=== PATIENT | male | born 1945 | race Caucasian/White ===

== ENCOUNTER 2016-07-27 20:56 | Inpatient (IN) | payer OTHER ==
[~2016-07-27] VITALS: Ht 188 cm; Wt 79.8 kg
[~2016-07-27 20:56] MED LIST: ASPI-482 PO; BENA10TA2 PO; COLC0.6T42 PO; GLUC1CAP41 PO; HYDR12.58 PO; OMEP40CA2 PEG; [UNRECOGNIZED DRUG - CODE] PEG
[2016-07-27 21:58] LABS: BASO % 0 % (0-3); EOS % 0 % (0-3); HEMOGLOBIN 13.6 g/dL (13.0-17.5); LYMPH # 0.5 x10^3/uL (1.0-4.8); LYMPH % 3 % (24-48); MEAN CORPUSCULAR HEMOGLOBIN 30 pg (25-35); MEAN CORPUSCULAR HGB CONC 34 g/dL (31-37); MEAN CORPUSCULAR VOLUME 88 fL (79-100); MONO % 4 % (0-9); NEUT % 92 % (31-73); PLATELET COUNT 284 x10^3/uL (140-400); RED BLOOD COUNT 4.52 x10^6/uL (4.30-5.70); WHITE BLOOD COUNT 16.8 x10^3/uL (4.0-11.0)
[2016-07-27 22:07] LABS: CREATININE 0.9 mg/dL (0.7-1.3); GFR 83.4; POTASSIUM 3.1 mmol/L (3.5-5.1)
[2016-07-27 22:13] LABS: ALBUMIN 2.9 g/dL (3.4-5.0); ALBUMIN/GLOBULIN RATIO 0.7 (1.0-1.7); TOTAL BILIRUBIN 1.1 mg/dL (0.2-1.0); TOTAL PROTEIN 7.1 g/dL (6.4-8.2)
[2016-07-27] MEDS ORDERED: IV DEXTROSE 5 %-0.45 % NACL 1,000 ML IV ONE (22:15)
[2016-07-27 22:43] LABS: PLT ESTIMATE ADEQUATE (ADEQUATE)
[2016-07-27 22:50] VITALS: BP 179/94
[2016-07-27 23:45] VITALS: BP 155/92
--- NOTE | 2016-07-28 | ED.ADGEN ---
Past Medical History Past Medical History: Cancer, Other Additional Past Medical Histor: esophageal cancer Past Surgical History: Tonsillectomy, Other Additional Past Surgical Histo: PEG, PORT Alcohol Use: Rarely Drug Use: None Adult General Chief Complaint Chief Complaint: DIFFICULTY SWALLOWING HPI HPI Patient is a 71 year old male with history of esophageal cancer presents with progressive difficulty swallowing for the past 2 days. Patient had an EGD performed today by his GI specialist and it was noted that he had near total occlusion of his esophagus. The patient was instructed to drink liquids until suitable arrangement could be made the patient to obtain a PEG tube. However, the patient reported coughing fluids and unable to swallow this evening prompting his visit to the urgency department. Patient also noted to be hypoxic with wet nonproductive cough. Patient reports generalized weakness fatigue and chills. Review of Systems Review of Systems ROS as per [facility] Allergies Allergies Allergies Coded Allergies Type Severity Reaction Last Updated Verified No Known Drug Allergies 07/12/16 No Physical Exam Physical Exam Constitutional: Well developed, generally weak and fatigued appearing. HENT: Normocephalic, atraumatic, bilateral external ears normal, oropharynx moist, no oral exudates, nose normal. Eyes: PERRLA, EOMI, conjunctiva normal, no discharge. Neck: Normal range of motion, no tenderness, supple, no stridor. Cardiovascular:Heart rate regular rhythm, no murmur. Lungs & Thorax:Coarse rales in left lung base Abdomen: Bowel sounds normal, soft, no tenderness, no masses, no pulsatile masses. Skin: Warm, dry, no erythema, no rash. [] Back: No tenderness, no CVA tenderness. [] Extremities: No tenderness, no cyanosis, no clubbing, ROM intact, no edema. [] Neurologic: Alert and oriented X 3, normal motor function, normal sensory function, no focal deficits noted. [] Psychologic: Affect normal, judgement normal, mood normal. [] Current Patient Data Vital Signs Vital Signs Date Time Temp Pulse Resp B/P (MAP) Pulse Ox O2 Delivery O2 Flow Rate FiO2 07/27/16 21:41 98 176/90 (118) 94 Nasal Cannula 2.0 07/27/16 21:37 99.9 20 99.9 Lab Values Laboratory Tests Test 07/27/16 21:24 White Blood Count 16.8 x10^3/uL (4.0-11.0) H Red Blood Count 4.52 x10^6/uL (4.30-5.70) Hemoglobin 13.6 g/dL (13.0-17.5) Hematocrit 40.0 % (39.0-53.0) Mean Corpuscular Volume 88 fL (79-100) Mean Corpuscular Hemoglobin 30 pg (25-35) Mean Corpuscular Hemoglobin Concent 34 g/dL (31-37) Red Cell Distribution Width 14.0 % (11.5-14.5) Platelet Count 284 x10^3/uL (140-400) Neutrophils (%) (Auto) 92 % (31-73) H Lymphocytes (%) (Auto) 3 % (24-48) L Monocytes (%) (Auto) 4 % (0-9) Eosinophils (%) (Auto) 0 % (0-3) Basophils (%) (Auto) 0 % (0-3) Neutrophils # (Auto) 15.5 x10^3uL (1.8-7.7) H Lymphocytes # (Auto) 0.5 x10^3/uL (1.0-4.8) L Monocytes # (Auto) 0.7 x10^3/uL (0.0-1.1) Eosinophils # (Auto) 0.1 x10^3/uL (0.0-0.7) Basophils # (Auto) 0.0 x10^3/uL (0.0-0.2) Segmented Neutrophils % 91 % (35-66) H Lymphocytes % 5 % (24-48) L Monocytes % 4 % (0-10) Platelet Estimate Adequate (ADEQUATE) Sodium Level 140 mmol/L (136-145) Potassium Level 3.1 mmol/L (3.5-5.1) L Chloride Level 101 mmol/L (98-107) Carbon Dioxide Level 29 mmol/L (21-32) Anion Gap 10 (6-14) Blood Urea Nitrogen 18 mg/dL (8-26) Creatinine 0.9 mg/dL (0.7-1.3) Estimated GFR (Cockcroft-Gault) 83.4 BUN/Creatinine Ratio 20 (6-20) Glucose Level 113 mg/dL (70-99) H Calcium Level 9.0 mg/dL (8.5-10.1) Total Bilirubin 1.1 mg/dL (0.2-1.0) H Aspartate Amino Transferase (AST) 21 U/L (15-37) Alanine Aminotransferase (ALT) 22 U/L (16-63) Alkaline Phosphatase 81 U/L (46-116) Total Protein 7.1 g/dL (6.4-8.2) Albumin 2.9 g/dL (3.4-5.0) L Albumin/Globulin Ratio 0.7 (1.0-1.7) L Laboratory Tests 07/27/16 21:24 Laboratory Tests 07/27/16 21:24 EKG EKG [] Radiology/Procedures Radiology/Procedures [Chest x-ray: Left sided pulmonary infiltrate.] Impressions: Patient with pneumonia with likely secondary to aspiration. Antibiotics given in the emergency department. Patient will be kept NPO pending GI consult Course & Med Decision Making Course & Med Decision Making Pertinent Labs and Imaging studies reviewed. (See chart for details) [] Dragon Disclaimer Dragon Disclaimer This electronic medical record was generated, in whole or in part, using a voice recognition dictation system. TEENA CASTILLO DO July 28, 2016 00:00
--- NOTE | 2016-07-28 00:10 | ACF ---
Admission Forms Criteria PNEUMONIA, COMMUNITY ACQUIRED Clinical Indications for Admission to Inpatient Care ( Place 'X' for any and all applicable criteria): Admission is indicated for ANY ONE of the following (1)(2)(3): [ ]I. Hypoxemia indicated by ANY ONE of the following: [ ]a) Oxygen saturation less than 90% while breathing room air [ ]b) PO2 less than 60 mm Hg (8.0 kPa) while breathing room air [ ]c) Chronic lung disease with significant deterioration from baseline oxygenation [ ]II. Appropriate diagnostic testing and treatment unavailable in outpatient or recovery facility (eg,testing or infection control measures unavailable(10) [X]III. Moderate-risk or high-risk category patients (Pneumonia Severity Index (PSI) class IV or V, or CURB-65 score of 3 or greater). [ ]IV. Outpatient treatment failure as indicated by ANY ONE of the following(9) : [ ]a) Failure to respond to antibiotic (eg, resistant organism) [ ]b) Clinically significant adverse effects from medication (eg, vomiting) [ ]c) Complications of pneumonia (eg, empyema, bacteremia) [ ]d) Significant worsening of comorbid cond necessitating inpatient care (eg, chronic heart failure) [ ]V. Intermediate-risk category patients (eg, PSI class III or CURB-65 score 2) who do not improve with initial therapy and observation. [ ]. Immunocompromised patients (eg, AIDS, chronic steroid use) at moderate or high risk based on clinical evaluation. [ ]VII. Complicated pleural effusions (eg, exudative, loculated) [ ]VIII.Hemodynamic instability [ ] IX. Altered mental status that is severe or persistent. [ ]X. Dehydration that is severe or persistent. [ ]XI. Bacteremia [ ]XII. Respiratory finding (eg. tachypnea) that do not respond to outpatient or observation care treatment Extended stay beyond goal length of stay may be needed for (20) [ ]a) Unclear diagnosis [ ]b) Pleural disease [ ]c) Severe pneumonia or treatment failure (25 [ ]d) Respiratory failure (anticipate invasive or noninvasive ventilatory support) [ ]e) Abnormal serum electrolytes (serum Na concentration less than 135 mEq/L (mmol/L) (32)(33) [ ]f) Clinically significant comorbid illness (eg, heart failure, atrial fibrillation with rapid heart rate, alcohol withdrawal, renal insufficiency)(34)(35) [ ]g) Comorbid acute exacerbation of COPD(36) [ ]h) Concomitant diagnosis of malignancy that may be associated with malnutrition, immunologic impairment, or bronchial obstruction. [ ]i) Concomitant altered mental status [ ]j) Culture-identified Gram-negative or antibiotic-resistant organism (eg, Pseudomonas, methicillin-resistant Staphylococcus aureus)(30) [ ]k) Healthcare-associated pneumonia The original [employer] content created by [employer] has been revised. The portions of the content which have been revised are identified through the use of italic text or in bold, and [email or web address] has neither reviewed nor approved the modified material. All other unmodified content is copyright [email or web address]. Please see references footnoted in the original [facility] [email or web address] edition 2016 Admission Criteria Met?: Yes MEGA RAGSDALE July 28, 2016 00:10
[2016-07-28 03:00] VITALS: BP 144/84
--- NOTE | 2016-07-28 07:19 | RAD ---
Exam performed: One view chest. History: Shortness of air today. Date of service: 07/27/16. Comparison made to a CT chest from Single AP upright portable view chest. Findings: Heart size is within upper limits normal. Ectatic tortuous aorta. Parenchymal airspace opacities in the left lower lobe with questionable blunting of the left costophrenic angle. Right lung is clear. The recent CT chest demonstrated airspace opacities in the left lingula. Impression: Stable mild cardiomegaly. Airspace opacities in the left lung base likely infiltrates.
--- NOTE | 2016-07-28 07:50 | EKG ---
[facility] [address] [place] [address] Test Date: 2016-07-27 Test Time: 21:27:16 Pat Name: NORTH DESHPANDE Department: Room: 524 1 Gender: M Parts Identifier: : [id number] Requested By: TRESA DIETRICH Order Number: [id number] Reading MD: Brad Orr Measurements Intervals [place] Rate: 110 P: -29 [place]: 108 QRS: -22 QRSD: 84 T: 41 QT: 318 QTc: 436 Interpretive Statements SINUS TACHYCARDIA NON-SPECIFIC ST/T CHANGES Electronically Signed On 08-02-2016 9:13:22 CDT by Brad Orr
[2016-07-28 07:51] LABS: BASO # 0.1 x10^3/uL (0.0-0.2); BASO % 0 % (0-3); EOS % 0 % (0-3); HEMOGLOBIN 12.6 g/dL (13.0-17.5); LYMPH # 0.9 x10^3/uL (1.0-4.8); LYMPH % 4 % (24-48); MEAN CORPUSCULAR HEMOGLOBIN 30 pg (25-35); MEAN CORPUSCULAR HGB CONC 34 g/dL (31-37); MEAN CORPUSCULAR VOLUME 89 fL (79-100); MONO % 6 % (0-9); NEUT % 90 % (31-73); PLATELET COUNT 252 x10^3/uL (140-400); RED BLOOD COUNT 4.17 x10^6/uL (4.30-5.70); RED CELL DISTRIBUTION WIDTH 14.6 % (11.5-14.5); WHITE BLOOD COUNT 21.9 x10^3/uL (4.0-11.0)
[2016-07-28 07:55] VITALS: BP 134/82
[2016-07-28 08:03] LABS: CALCIUM 8.4 mg/dL (8.5-10.1); CREATININE 0.9 mg/dL (0.7-1.3); GFR 83.4; POTASSIUM 3.1 mmol/L (3.5-5.1)
[2016-07-28] MEDS: IPRATRPIUM/ALBUTEROL 0.5/2.5MG 3 ML NEBU. NEB SCH ×4 (08:05→19:49)
--- NOTE | 2016-07-28 09:29 | PDOC1 ---
History and Physical Past Medical History Cardiovascular: HTN GI: Other Heme/Onc: Cancer Past Surgical History Past Surgical History: Tonsillectomy Family History Family History: No Significant Social History Smoke: No ALCOHOL: none Drugs: None Current Problem List Problem List Problems Medical Problems: (1) Intractable vomiting with nausea Status: Acute Current Medications Current Medications Current Medications Medications (Trade) Dose Ordered Sig/Manjit Start Time Stop Time Status Last Admin Dose Admin Albuterol/ Ipratropium (Duoneb) 3 ml RTQID 07/28/16 08:00 07/29/16 07:59 07/28/16 08:05 3 ML Dextrose/Sodium Chloride 1,000 ml @ 125 mls/hr 1X ONCE 07/27/16 22:15 07/28/16 06:14 DC 07/27/16 22:30 125 MLS/HR Levofloxacin/ Dextrose 150 ml @ 100 mls/hr 1X ONCE 07/27/16 23:00 07/28/16 00:29 DC 07/27/16 23:13 100 MLS/HR Allergies Allergies Allergies Coded Allergies Type Severity Reaction Last Updated Verified No Known Drug Allergies 07/12/16 No ROS Review of System CONSTITUTIONAL: No fever or chills EYES: No recent changes SKIN: No rash or itching CARDIOVASCULAR: No chest pain, syncope, palpitations, or edema RESPIRATORY: No SOB or cough GASTROINTESTINAL: DYSPHAGIA NEUROLOGICAL: No headaches or weakness ENDOCRINE: No cold or heat intolerance GENITOURINARY: No urgency or frequency of urination MUSCULOSKELETAL: No back pain or joint pain LYMPHATICS: No enlarged lymph nodes PSYCHIATRIC: No anxiety or depression Physical Exam Physical Exam GEN.: No apparent distress. Alert and oriented. HEENT: Head is normocephalic, atraumatic NECK: Supple. no jvd LUNGS: Clear to auscultation. normal flow HEART: RRR, S1, S2 present. Peripheral pulses intact ABDOMEN: Soft, nontender. Positive bowel sounds. EXTREMITIES: Without any cyanosis. NEUROLOGIC: Normal speech, normal tone PSYCHIATRIC: Normal affect, normal mood. SKIN: No ulcerations Vitals Vitals Vital Signs Date Time Temp Pulse Resp B/P (MAP) Pulse Ox O2 Delivery O2 Flow Rate FiO2 07/28/16 08:00 Room Air 2.0 07/28/16 07:56 92 07/28/16 07:55 98.0 79 16 134/82 (99) 98.0 Labs Labs Laboratory Tests Test 07/27/16 21:24 07/28/16 07:30 White Blood Count 16.8 x10^3/uL (4.0-11.0) 21.9 x10^3/uL (4.0-11.0) Red Blood Count 4.52 x10^6/uL (4.30-5.70) 4.17 x10^6/uL (4.30-5.70) Hemoglobin 13.6 g/dL (13.0-17.5) 12.6 g/dL (13.0-17.5) Hematocrit 40.0 % (39.0-53.0) 37.0 % (39.0-53.0) Mean Corpuscular Volume 88 fL (79-100) 89 fL (79-100) Mean Corpuscular Hemoglobin 30 pg (25-35) 30 pg (25-35) Mean Corpuscular Hemoglobin Concent 34 g/dL (31-37) 34 g/dL (31-37) Red Cell Distribution Width 14.0 % (11.5-14.5) 14.6 % (11.5-14.5) Platelet Count 284 x10^3/uL (140-400) 252 x10^3/uL (140-400) Neutrophils (%) (Auto) 92 % (31-73) 90 % (31-73) Lymphocytes (%) (Auto) 3 % (24-48) 4 % (24-48) Monocytes (%) (Auto) 4 % (0-9) 6 % (0-9) Eosinophils (%) (Auto) 0 % (0-3) 0 % (0-3) Basophils (%) (Auto) 0 % (0-3) 0 % (0-3) Neutrophils # (Auto) 15.5 x10^3uL (1.8-7.7) 19.7 x10^3uL (1.8-7.7) Lymphocytes # (Auto) 0.5 x10^3/uL (1.0-4.8) 0.9 x10^3/uL (1.0-4.8) Monocytes # (Auto) 0.7 x10^3/uL (0.0-1.1) 1.2 x10^3/uL (0.0-1.1) Eosinophils # (Auto) 0.1 x10^3/uL (0.0-0.7) 0.0 x10^3/uL (0.0-0.7) Basophils # (Auto) 0.0 x10^3/uL (0.0-0.2) 0.1 x10^3/uL (0.0-0.2) Segmented Neutrophils % 91 % (35-66) Lymphocytes % 5 % (24-48) Monocytes % 4 % (0-10) Platelet Estimate Adequate (ADEQUATE) Sodium Level 140 mmol/L (136-145) 139 mmol/L (136-145) Potassium Level 3.1 mmol/L (3.5-5.1) 3.1 mmol/L (3.5-5.1) Chloride Level 101 mmol/L (98-107) 102 mmol/L (98-107) Carbon Dioxide Level 29 mmol/L (21-32) 30 mmol/L (21-32) Anion Gap 10 (6-14) 7 (6-14) Blood Urea Nitrogen 18 mg/dL (8-26) 14 mg/dL (8-26) Creatinine 0.9 mg/dL (0.7-1.3) 0.9 mg/dL (0.7-1.3) Estimated GFR (Cockcroft-Gault) 83.4 83.4 BUN/Creatinine Ratio 20 (6-20) Glucose Level 113 mg/dL (70-99) 142 mg/dL (70-99) Calcium Level 9.0 mg/dL (8.5-10.1) 8.4 mg/dL (8.5-10.1) Total Bilirubin 1.1 mg/dL (0.2-1.0) Aspartate Amino Transf (AST/SGOT) 21 U/L (15-37) Alanine Aminotransferase (ALT/SGPT) 22 U/L (16-63) Alkaline Phosphatase 81 U/L (46-116) Total Protein 7.1 g/dL (6.4-8.2) Albumin 2.9 g/dL (3.4-5.0) Albumin/Globulin Ratio 0.7 (1.0-1.7) Laboratory Tests Test 07/27/16 21:24 07/28/16 07:30 White Blood Count 16.8 x10^3/uL (4.0-11.0) 21.9 x10^3/uL (4.0-11.0) Red Blood Count 4.52 x10^6/uL (4.30-5.70) 4.17 x10^6/uL (4.30-5.70) Hemoglobin 13.6 g/dL (13.0-17.5) 12.6 g/dL (13.0-17.5) Hematocrit 40.0 % (39.0-53.0) 37.0 % (39.0-53.0) Mean Corpuscular Volume 88 fL (79-100) 89 fL (79-100) Mean Corpuscular Hemoglobin 30 pg (25-35) 30 pg (25-35) Mean Corpuscular Hemoglobin Concent 34 g/dL (31-37) 34 g/dL (31-37) Red Cell Distribution Width 14.0 % (11.5-14.5) 14.6 % (11.5-14.5) Platelet Count 284 x10^3/uL (140-400) 252 x10^3/uL (140-400) Neutrophils (%) (Auto) 92 % (31-73) 90 % (31-73) Lymphocytes (%) (Auto) 3 % (24-48) 4 % (24-48) Monocytes (%) (Auto) 4 % (0-9) 6 % (0-9) Eosinophils (%) (Auto) 0 % (0-3) 0 % (0-3) Basophils (%) (Auto) 0 % (0-3) 0 % (0-3) Neutrophils # (Auto) 15.5 x10^3uL (1.8-7.7) 19.7 x10^3uL (1.8-7.7) Lymphocytes # (Auto) 0.5 x10^3/uL (1.0-4.8) 0.9 x10^3/uL (1.0-4.8) Monocytes # (Auto) 0.7 x10^3/uL (0.0-1.1) 1.2 x10^3/uL (0.0-1.1) Eosinophils # (Auto) 0.1 x10^3/uL (0.0-0.7) 0.0 x10^3/uL (0.0-0.7) Basophils # (Auto) 0.0 x10^3/uL (0.0-0.2) 0.1 x10^3/uL (0.0-0.2) Segmented Neutrophils % 91 % (35-66) Lymphocytes % 5 % (24-48) Monocytes % 4 % (0-10) Platelet Estimate Adequate (ADEQUATE) Sodium Level 140 mmol/L (136-145) 139 mmol/L (136-145) Potassium Level 3.1 mmol/L (3.5-5.1) 3.1 mmol/L (3.5-5.1) Chloride Level 101 mmol/L (98-107) 102 mmol/L (98-107) Carbon Dioxide Level 29 mmol/L (21-32) 30 mmol/L (21-32) Anion Gap 10 (6-14) 7 (6-14) Blood Urea Nitrogen 18 mg/dL (8-26) 14 mg/dL (8-26) Creatinine 0.9 mg/dL (0.7-1.3) 0.9 mg/dL (0.7-1.3) Estimated GFR (Cockcroft-Gault) 83.4 83.4 BUN/Creatinine Ratio 20 (6-20) Glucose Level 113 mg/dL (70-99) 142 mg/dL (70-99) Calcium Level 9.0 mg/dL (8.5-10.1) 8.4 mg/dL (8.5-10.1) Total Bilirubin 1.1 mg/dL (0.2-1.0) Aspartate Amino Transf (AST/SGOT) 21 U/L (15-37) Alanine Aminotransferase (ALT/SGPT) 22 U/L (16-63) Alkaline Phosphatase 81 U/L (46-116) Total Protein 7.1 g/dL (6.4-8.2) Albumin 2.9 g/dL (3.4-5.0) Albumin/Globulin Ratio 0.7 (1.0-1.7) VTE Prophylaxis Ordered VTE Prophylaxis Devices: Yes VTE Pharmacological Prophylaxi: Yes NEFTALY SCHREIBER MD July 28, 2016 09:29
[2016-07-28] MEDS ORDERED: HYDROcodone/APAP 5/325MG 1 TAB TABLET PO PRN (09:30)
[2016-07-28] MEDS ORDERED: ACETAMINOPHEN 325 MG TABLET. PO PRN (09:30)
[2016-07-28] MEDS ORDERED: ALBUTEROL SULFATE 2.5 MG/3 ML NEBU. NEB PRN (09:30)
[2016-07-28] MEDS ORDERED: ONDANSETRON PF 4 MG/2 ML VIAL. IV PRN (09:30)
[2016-07-28] MEDS ORDERED: hydrALAZINE 20 MG/ML VIAL. IVP PRN (09:30)
--- NOTE | 2016-07-28 09:49 | PDOC ---
A/P: Esophageal cancer, dysphagia -- Pt prefers to see Dr. Pritchard. APPLE VALENCIA July 28, 2016 09:49
[2016-07-28] MEDS: PIPERACILLIN/TAZOBACTAM 3.375 GM in IV NORMAL SALINE 50ML 50 ML IV SCH ×3 (10:30→23:34)
[2016-07-28] MEDS: IV NORMAL SALINE 1000ML BAG 1,000 ML IV SCH ×2 (10:30→22:36)
[2016-07-28 11:04] VITALS: BP 131/79
[2016-07-28] MEDS: AMINO AC 3%/ELECTROLYTE/GLYCER 1,000 ML IV SCH (12:52)
[2016-07-28] MEDS ORDERED: CONTRAST GIVEN MC PRN (13:45)
[2016-07-28] MEDS ORDERED: IOHEXOL 300 MG/ML 75 ML VIAL IV ONE (13:45)
--- NOTE | 2016-07-28 14:39 | RAD ---
Exam performed: CT abdomen and pelvis with contrast. History: Recurrent esophageal cancer. Date of service: 07/28/16. Comparison: None available Technique: Contiguous helical acquisitions are obtained through the abdomen and pelvis during intravenous administration of 75 cc of Omnipaque 300. Sagittal and coronal reformatted images are obtained and reviewed. Findings: Patchy airspace opacities in the lingula and left lung base. Tiny left pleural effusion. Linear right basilar atelectasis. Calcified nodules in both lung bases. Heart size is normal. Diffuse thickening of the distal esophagus and gastroesophageal junction. No adjacent lymphadenopathy. Small cystic structure in the right cardiophrenic angle probably a pericardial cyst. The liver is normal in size and attenuation. Low attenuating subcentimeter abnormalities are seen throughout the liver. Spleen and pancreas are normal. Gallbladder is distended. Both adrenal glands and bilateral kidneys are normal in size with symmetric excretion of contrast via both kidneys. Nonobstructing 10 mm left superior renal pole calculus. There is also a 13 mm cyst in the left superior renal pole. Atheromatous calcification of the aorta with diffuse ectasia. Mild aneurysmal dilatation of the infrarenal abdominal aorta measuring up to 3.5 cm in maximum dimension. Diffuse noncalcified plaquing is seen throughout the aorta. Small bowel loops are nondilated and unremarkable. Scattered stool in the colon. Urinary bladder is partially decompressed. The prostate gland, seminal vesicles and the rectum appear normal. Interrogation of bone windows demonstrates spondylotic changes. Degenerative disc disease at L5-S1. Impression: 1. Diffuse wall thickening of the distal esophagus suspicious for esophageal neoplasm. Evaluation with endoscopy exam may be of additional benefit if not already performed. 2. Multiple small subcentimeter low attenuating nodules scattered throughout the right and left hepatic lobe. These are too small to be characterized and could represent cysts, however metastasis not excluded. Evaluation with abdominal ultrasound may be obtained to ensure cystic nature of these abnormalities. Alternatively MRI abdomen using hepatic protocol may be performed. 3. Atheromatous aortic calcification with mild aneurysm of the infrarenal aorta. 4. Nonobstructing left renal calculus and left renal cysts. 5. Prostatomegaly
--- NOTE | 2016-07-28 15:19 | PDOC ---
Provider Note Provider Note Onc consult dictated- [id number] Recurrent esoph adenoca Liver lesions uncertain etiology Odynophagia, Surg consulted for J tube Plan: - Abd U/S to eval liver lesions, will need bx if concerned for metastatic disease - HER2 testing requested Dr. Johnson will return tomorrow. DAVE MCGREGOR DO July 28, 2016 15:19
[2016-07-28 15:21] VITALS: BP 133/78
--- NOTE | 2016-07-28 16:42 | RAD ---
Indication: Liver lesions on CT. Correlation is made with CT study earlier the same day. The aorta is aneurysmal measuring up to 4.1 cm transverse by 3.2 centers AP in the distal portion. The liver is normal in size. There appear to be multiple hepatic cysts present. No solid liver mass is identified. The gallbladder does contain small stones and sludge. No wall thickening or pericholecystic fluid is identified. The spleen is unremarkable. The pancreas is poorly visualized. The right kidney is unremarkable. The left kidney contains a 1.7 cm cyst. There is no ascites. Impression: Hepatic and left renal cysts. There is also cholelithiasis and gallbladder sludge. No other significant abnormalities seen.
[2016-07-28 19:00] VITALS: BP 148/70
[2016-07-28 23:00] VITALS: BP 138/61
[2016-07-29 03:00] VITALS: BP 161/89
[2016-07-29] MEDS: AMINO AC 3%/ELECTROLYTE/GLYCER 1,000 ML IV SCH ×2 (04:53→20:39)
[2016-07-29] MEDS: PIPERACILLIN/TAZOBACTAM 3.375 GM in IV NORMAL SALINE 50ML 50 ML IV SCH ×3 (05:52→18:40)
[2016-07-29 06:53] LABS: BASO % 0 % (0-3); EOS % 1 % (0-3); HEMATOCRIT 34.7 % (39.0-53.0); HEMOGLOBIN 12.1 g/dL (13.0-17.5); LYMPH # 0.7 x10^3/uL (1.0-4.8); LYMPH % 6 % (24-48); MEAN CORPUSCULAR HEMOGLOBIN 31 pg (25-35); MEAN CORPUSCULAR HGB CONC 35 g/dL (31-37); MEAN CORPUSCULAR VOLUME 88 fL (79-100); MONO % 7 % (0-9); NEUT % 87 % (31-73); PLATELET COUNT 236 x10^3/uL (140-400); RED BLOOD COUNT 3.97 x10^6/uL (4.30-5.70); RED CELL DISTRIBUTION WIDTH 14.4 % (11.5-14.5); WHITE BLOOD COUNT 13.3 x10^3/uL (4.0-11.0)
[2016-07-29 07:00] VITALS: BP 140/75
[2016-07-29 07:03] LABS: CALCIUM 8.5 mg/dL (8.5-10.1); CREATININE 0.9 mg/dL (0.7-1.3); GFR 83.4
[2016-07-29] MEDS: IPRATRPIUM/ALBUTEROL 0.5/2.5MG 3 ML NEBU. NEB SCH ×4 (07:07→19:39)
[2016-07-29 07:08] LABS: POTASSIUM 2.8 mmol/L (3.5-5.1)
[2016-07-29] MEDS: POTASSIUM CHLORIDE 10MEQ 100 ML IV SCH ×8 (08:30→22:39)
--- NOTE | 2016-07-29 09:09 | PDOC ---
PROGRESS NOTES Subjective Subjective c/c - f/u of Recurrent esoph adenoca ROS - has dysphagia Objective Objective Vital Signs Date Time Temp Pulse Resp B/P (MAP) Pulse Ox O2 Delivery O2 Flow Rate FiO2 07/29/16 07:09 93 Room Air 07/29/16 07:00 98.7 93 20 140/75 (96) 98.7 07/28/16 08:00 2.0 Intake and Output 07/29/16 07:00 Intake Total 0 ml Balance 0 ml Intake Oral 0 ml # Voids 5 Physical Exam Abdomen: Soft, No tenderness, No masses General: Alert, Oriented X3 Neuro: Normal speech Psych/Mental Status: Mental status NL Assessment Assessment Problems Medical Problems: (1) Intractable vomiting with nausea Status: Acute A/P: 1. 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 I d/w Dr Pritchard, bx not performed as high risk for perforation. Plan palliative chemo upon discharge. 2. Liver lesions uncertain etiology. Cysts per u/s. However the nodules are very small and will be better characterized by MRI - ordered MRI. 2. Odynophagia, Dr Pritchard to d/w pt regarding stent vs J-tube options. I d/w Dr Pritchard. - Comment Review of Relevant I have reviewed the following items skyler (where applicable) has been applied. Labs Laboratory Tests Test 07/27/16 21:24 07/28/16 07:30 07/29/16 06:32 White Blood Count 16.8 x10^3/uL (4.0-11.0) 21.9 x10^3/uL (4.0-11.0) 13.3 x10^3/uL (4.0-11.0) Red Blood Count 4.52 x10^6/uL (4.30-5.70) 4.17 x10^6/uL (4.30-5.70) 3.97 x10^6/uL (4.30-5.70) Hemoglobin 13.6 g/dL (13.0-17.5) 12.6 g/dL (13.0-17.5) 12.1 g/dL (13.0-17.5) Hematocrit 40.0 % (39.0-53.0) 37.0 % (39.0-53.0) 34.7 % (39.0-53.0) Mean Corpuscular Volume 88 fL (79-100) 89 fL (79-100) 88 fL (79-100) Mean Corpuscular Hemoglobin 30 pg (25-35) 30 pg (25-35) 31 pg (25-35) Mean Corpuscular Hemoglobin Concent 34 g/dL (31-37) 34 g/dL (31-37) 35 g/dL (31-37) Red Cell Distribution Width 14.0 % (11.5-14.5) 14.6 % (11.5-14.5) 14.4 % (11.5-14.5) Platelet Count 284 x10^3/uL (140-400) 252 x10^3/uL (140-400) 236 x10^3/uL (140-400) Neutrophils (%) (Auto) 92 % (31-73) 90 % (31-73) 87 % (31-73) Lymphocytes (%) (Auto) 3 % (24-48) 4 % (24-48) 6 % (24-48) Monocytes (%) (Auto) 4 % (0-9) 6 % (0-9) 7 % (0-9) Eosinophils (%) (Auto) 0 % (0-3) 0 % (0-3) 1 % (0-3) Basophils (%) (Auto) 0 % (0-3) 0 % (0-3) 0 % (0-3) Neutrophils # (Auto) 15.5 x10^3uL (1.8-7.7) 19.7 x10^3uL (1.8-7.7) 11.5 x10^3uL (1.8-7.7) Lymphocytes # (Auto) 0.5 x10^3/uL (1.0-4.8) 0.9 x10^3/uL (1.0-4.8) 0.7 x10^3/uL (1.0-4.8) Monocytes # (Auto) 0.7 x10^3/uL (0.0-1.1) 1.2 x10^3/uL (0.0-1.1) 0.9 x10^3/uL (0.0-1.1) Eosinophils # (Auto) 0.1 x10^3/uL (0.0-0.7) 0.0 x10^3/uL (0.0-0.7) 0.1 x10^3/uL (0.0-0.7) Basophils # (Auto) 0.0 x10^3/uL (0.0-0.2) 0.1 x10^3/uL (0.0-0.2) 0.0 x10^3/uL (0.0-0.2) Segmented Neutrophils % 91 % (35-66) Lymphocytes % 5 % (24-48) Monocytes % 4 % (0-10) Platelet Estimate Adequate (ADEQUATE) Sodium Level 140 mmol/L (136-145) 139 mmol/L (136-145) 140 mmol/L (136-145) Potassium Level 3.1 mmol/L (3.5-5.1) 3.1 mmol/L (3.5-5.1) 2.8 mmol/L (3.5-5.1) Chloride Level 101 mmol/L (98-107) 102 mmol/L (98-107) 103 mmol/L (98-107) Carbon Dioxide Level 29 mmol/L (21-32) 30 mmol/L (21-32) 29 mmol/L (21-32) Anion Gap 10 (6-14) 7 (6-14) 8 (6-14) Blood Urea Nitrogen 18 mg/dL (8-26) 14 mg/dL (8-26) 12 mg/dL (8-26) Creatinine 0.9 mg/dL (0.7-1.3) 0.9 mg/dL (0.7-1.3) 0.9 mg/dL (0.7-1.3) Estimated GFR (Cockcroft-Gault) 83.4 83.4 83.4 BUN/Creatinine Ratio 20 (6-20) Glucose Level 113 mg/dL (70-99) 142 mg/dL (70-99) 113 mg/dL (70-99) Calcium Level 9.0 mg/dL (8.5-10.1) 8.4 mg/dL (8.5-10.1) 8.5 mg/dL (8.5-10.1) Total Bilirubin 1.1 mg/dL (0.2-1.0) Aspartate Amino Transf (AST/SGOT) 21 U/L (15-37) Alanine Aminotransferase (ALT/SGPT) 22 U/L (16-63) Alkaline Phosphatase 81 U/L (46-116) Total Protein 7.1 g/dL (6.4-8.2) Albumin 2.9 g/dL (3.4-5.0) Albumin/Globulin Ratio 0.7 (1.0-1.7) Laboratory Tests Test 07/29/16 06:32 White Blood Count 13.3 x10^3/uL (4.0-11.0) Red Blood Count 3.97 x10^6/uL (4.30-5.70) Hemoglobin 12.1 g/dL (13.0-17.5) Hematocrit 34.7 % (39.0-53.0) Mean Corpuscular Volume 88 fL (79-100) Mean Corpuscular Hemoglobin 31 pg (25-35) Mean Corpuscular Hemoglobin Concent 35 g/dL (31-37) Red Cell Distribution Width 14.4 % (11.5-14.5) Platelet Count 236 x10^3/uL (140-400) Neutrophils (%) (Auto) 87 % (31-73) Lymphocytes (%) (Auto) 6 % (24-48) Monocytes (%) (Auto) 7 % (0-9) Eosinophils (%) (Auto) 1 % (0-3) Basophils (%) (Auto) 0 % (0-3) Neutrophils # (Auto) 11.5 x10^3uL (1.8-7.7) Lymphocytes # (Auto) 0.7 x10^3/uL (1.0-4.8) Monocytes # (Auto) 0.9 x10^3/uL (0.0-1.1) Eosinophils # (Auto) 0.1 x10^3/uL (0.0-0.7) Basophils # (Auto) 0.0 x10^3/uL (0.0-0.2) Sodium Level 140 mmol/L (136-145) Potassium Level 2.8 mmol/L (3.5-5.1) Chloride Level 103 mmol/L (98-107) Carbon Dioxide Level 29 mmol/L (21-32) Anion Gap 8 (6-14) Blood Urea Nitrogen 12 mg/dL (8-26) Creatinine 0.9 mg/dL (0.7-1.3) Estimated GFR (Cockcroft-Gault) 83.4 Glucose Level 113 mg/dL (70-99) Calcium Level 8.5 mg/dL (8.5-10.1) Microbiology 07/27/16 Blood Culture - Preliminary, Resulted NO GROWTH AFTER 1 DAY Medications Current Medications Dextrose/Sodium Chloride 1,000 ml @ 125 mls/hr 1X ONCE IV Last administered on 07/27/16 22:30; Start 07/27/16 at 22:15; Stop 07/28/16 at 06:14; Status DC Levofloxacin/ Dextrose 150 ml @ 100 mls/hr 1X ONCE IV Last administered on 23:13; Start 07/27/16 at 23:00; Stop 07/28/16 at 00:29; Status DC Albuterol/ Ipratropium (Duoneb) 3 ml RTQID NEB Last administered on 07/29/16 07:07; Start 07/28/16 at 08:00; Stop 07/29/16 at 07:59; Status DC Piperacillin Sod/ Tazobactam Sod 3.375 gm/Sodium Chloride 50 ml @ 100 mls/hr Q6HRS IV Last administered on 07/29/16 05:52; Start 07/28/16 at 10:00 Acetaminophen (Tylenol) 325 mg PRN Q6HRS PRN PO MILD PAIN / TEMP; Start at 09:30 Acetaminophen/ Hydrocodone Bitart (Lortab 5/325) 1 tab PRN Q6HRS PRN PO MODERATE TO SEVERE PAIN; Start 07/28/16 at 09:30 Hydralazine HCl (Apresoline) 10 mg PRN Q4HRS PRN IVP ELEVATED BP, SEE COMMENTS ; Start 07/28/16 at 09:30 Ondansetron HCl (Zofran) 4 mg PRN Q8HRS PRN IV NAUSEA/VOMITING; Start 07/28/16 at 09:30 Albuterol Sulfate (Ventolin Neb Soln) 2.5 mg PRN Q4HRS PRN NEB SHORTNESS OF BREATH; Start 07/28/16 at 09:30 Sodium Chloride 1,000 ml @ 75 mls/hr [id number] IV Last administered on 22:36; Start 07/28/16 at 09:30; Stop 07/29/16 at 03:15; Status DC Amino Acids/ Glycerin/ Electrolytes 1,000 ml @ 80 mls/hr [id number] IV Last administered on 07/29/16 04:53; Start 07/28/16 at 12:00 Iohexol (Omnipaque 300 Mg/ml) 75 ml 1X ONCE IV Last administered on 07/28/16 14:13; Start 07/28/16 at 13:45; Stop 07/28/16 at 13:46; Status DC Info (Do NOT chart on this entry -- for MONITORING) 1 each PRN DAILY PRN MC SEE COMMENTS; Start 07/28/16 at 13:45; Stop 07/30/16 at 13:44 Potassium Chloride/Sodium Chloride 1,000 ml @ 75 mls/hr [id number] IV Last administered on 07/29/16 05:01; Start 07/29/16 at 03:30 Potassium Chloride 100 ml @ 100 mls/hr Q1H IV Last administered on 07/29/16 08:30; Start 07/29/16 at 08:00; Stop 07/29/16 at 11:59 Active Scripts Active Reported Aspir 81 (Aspirin) 81 Mg Tablet.dr 1 Tab PO DAILY Colchicine 0.6 Mg Tablet 0.6 Mg PO DAILY Glucosamine & Chondroitin Cap (Glucosa Meneses 2KCL/Chondroitin Meneses) 1 Each Capsule 1 Each PO DAILY Benazepril Hcl 10 Mg Tablet 20 Mg PO DAILY Vitals/I & O Vital Sign - Last 24 Hours 07/28/16 07/28/16 07/28/16 07/28/16 11:04 11:52 15:21 16:14 Temp 98.1 97.9 98.1 97.9 Pulse 72 70 Resp 17 16 B/P (MAP) 131/79 (96) 133/78 (96) Pulse Ox 94 97 O2 Delivery Room Air Room Air Room Air Room Air 07/28/16 07/28/16 07/28/16 07/28/16 19:00 19:50 20:30 23:00 Temp 97.8 97.8 97.8 97.8 Pulse 79 68 Resp 20 20 B/P (MAP) 148/70 (96) 138/61 (86) Pulse Ox 92 94 94 O2 Delivery Room Air Room Air Room Air Room Air 07/29/16 07/29/16 07/29/16 03:00 07:00 07:09 Temp 97.7 98.7 97.7 98.7 Pulse 75 93 Resp 20 20 B/P (MAP) 161/89 (113) 140/75 (96) Pulse Ox 94 91 93 O2 Delivery Room Air Room Air Room Air Intake and Output 07/28/16 07/28/16 07/29/16 15:00 23:00 07:00 Intake Total 0 ml Balance 0 ml SILVIA GOODMAN MD July 29, 2016 09:09
--- NOTE | 2016-07-29 09:42 | CONS ---
DATE OF CONSULTATION: 07/28/2016 ONCOLOGY CONSULT NOTE REFERRING PROVIDER: Dr. Cui. REASON FOR CONSULTATION: Esophageal cancer. HISTORY OF PRESENT ILLNESS: The patient is a 71-year-old male who has been treated by my colleague, Dr. Johnson, for his esophageal cancer. 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 He received chemoradiation with PET scan in 2012 showing a positive treatment response, but some disease was indeed still present. He had some hilar nodes which we continued watching. He last saw Dr. Johnson in the clinic in February [address] scan that showed possible reoccurrence versus post-treatment related changes. He was referred back to GI for an EGD. He states that over the last month, he has had odynophagia, now progressed to the point that he cannot pass any liquids or solids. He has lost 15 pounds in the last month. He is frequently clearing his throat. He denies any chest or abdominal pain, however. He was undergoing an EGD for possible esophageal dilation yesterday when he was noted to have obvious reoccurrence of an esophageal mass. He was admitted for J-tube placement and nutritional support; however, he is eager to discharge. PAST MEDICAL HISTORY: Hypertension, esophageal adenocarcinoma, tonsillitis, gout. PAST SURGICAL HISTORY: Tonsillectomy, PEG placement followed by removal. FAMILY HISTORY: Dad had some form of cancer and a heart attack. SOCIAL HISTORY: Previously smoked for 20 years. No alcohol or drug use. ALLERGIES: No known drug allergies. CURRENT MEDICATIONS: Clinimix, Zosyn, Zofran, albuterol, hydralazine. REVIEW OF SYSTEMS: Ten point review of systems completed and unremarkable with the exception of that mentioned in the HPI. PHYSICAL EXAMINATION: VITAL SIGNS: Temperature 98.1, pulse 72, respiratory rate 17, blood pressure 131/79, 94% O2 on room air. GENERAL: He is alert and oriented. He does not appear to be in any distress, overall in very good spirits. HEENT: Frequently needs to clear his throat. No scleral icterus. CARDIOVASCULAR: Heart is regular in rhythm and rate. LUNGS: Clear to auscultation bilaterally. ABDOMEN: Soft, nontender. EXTREMITIES: No edema. NEUROLOGIC: No focal deficits. LYMPHATIC: No supraclavicular, cervical or axillary adenopathy. IMAGING/LABORATORY DATA: CT chest reviewed from 07/10/2016 showing 9.5 cm mass in the distal thoracic esophagus. No other adenopathy noted. CT abdomen/pelvis ordered, which showed multiple small subcentimeter low attenuating nodules throughout bilateral hepatic lobes, too small to be characterized abscess, could be metastases. CBC notable for significant neutrophilia, WBC 21.9, ANC 19.7. Hemoglobin and platelets were normal on admission. CMP notable for potassium 3.1, bilirubin 1.1. AST, ALT are normal. ASSESSMENT AND PLAN: The patient is a 71-year-old male with the following medical problems: 1. Recurrent adenocarcinoma of the esophagus, status post previous chemoradiation. I added on a CT of the abdomen and pelvis with questionable liver lesions noted. Abdominal ultrasound is recommended for further evaluation , which I will order now. If these lesions in the liver are concerning for metastatic disease, they will need to be biopsied. Surgery has been consulted for J-tube placement as he is having significant odynophagia as well, limiting his ability to maintain nutritional support at home. Dr. Johnson will return tomorrow to review these pending results. I will also request HER2 testing from pathology. Thank you again for alerting of his admission. DAVE MCGREGOR DO DR: LINDSEY/mani JOB#: [id number] / [id number] MICHELINE
--- NOTE | 2016-07-29 09:43 | HP ---
ADMIT DATE: 07/28/2016 CHIEF COMPLAINT: Difficulty to swallow water. HISTORY OF PRESENT ILLNESS: A 71-year-old male patient with history of esophageal cancer who had esophageal dilatation one day before prior to admission to the hospital. The patient had an outpatient procedure, later he went home; however, he did notice that he could not able to swallow even water. After sometime he felt dehydrated and brought him to the hospital for possible PEG tube or J-tube. On initial evaluation in the ER he might have an infiltrate on the chest x-ray, he was started on antibiotics and this morning the patient still have dysphagia. I did speak with Dr. Pritchard, pack puller, who recommended to have either a J-tube or PEG tube. I did discuss with the patient and he would like to have a PEG tube and he prefers to see Dr. Pritchard. Until then I started him on procalamine and IV hydration with normal saline. To know the status of his cancer I will consult Dr. Johnson. PAST MEDICAL HISTORY: Esophageal cancer, PEG tube placement, tonsillectomy. PERSONAL HISTORY: No smoking, no alcohol, no drug abuse. FAMILY HISTORY: Unknown. REVIEW OF SYSTEMS: Please see my electronic H and P. PHYSICAL EXAMINATION: Please see my electronic H and P. LABORATORY FINDINGS: WBC 16.8, hemoglobin 13.6, MCV 88, platelets 284, neutrophils 92. Chemistry: Sodium 140, potassium 3.1, chloride 101, anion gap 10, creatinine 0.9, glucose 113. ASSESSMENT: 1. Dysphagia likely due to advanced esophageal cancer. 2. Possible pneumonia. 3. Questionable aspiration. 4. Hypokalemia. 5. Dehydration. 6. Unknown status esophageal cancer, possible metastatic. PLAN: 1. He has been admitted to the hospital for IV hydration. Currently he is on procalamine and normal saline. I will add potassium chloride. 2. Consult Dr. Pritchard and General Surgery for further recommendation. 3. Consult Dr. Johnson. 4. Continue Zosyn for now. If the patient's symptoms are clinically getting better we will deescalate antibiotics. 5. Monitor electrolyte, CBC, BMP. 6. P.r.n. hydralazine for systolic blood pressure more than 150. 7. Blood cultures are drawn in the ER. Needs follow up. 8. DVT prophylaxis with Lovenox. NEFTALY SCHREIBER MD DR: Berto JOB#: [id number] / [id number] MICHELINE
[2016-07-29 11:00] VITALS: BP 139/83
[2016-07-29] MEDS ORDERED: GADOBUTROL 10 MMOL/10 ML VIAL IV ONE (12:30)
--- NOTE | 2016-07-29 13:28 | PDOC2 ---
LEVY [facility] [employer] 07/29/16 1328: CONSULT Date of Consult Date of Consult DATE: 07/29/16 TIME: 13:14 Reason for Consult Reason for Consult: dysphagia Referring Physician Referring Physician: CHAPARRO Identification/Chief Complaint Chief Complaint dysphagia Source Source: Chart review, Patient History of Present Illness Reason for Visit: Esophegeal cancer 5 years ago, unresectable, treated with chemo/radiation, had + response but still had disease present. He follows with Dr Pritchard, in the last month has had more dysphagia, to point where he can not swallow liquids. Last EGD 2 days ago showing near total occlusion of his esophagus. Could not keep anything down and presented to ER. I d/w Dr Johnson, he informed me, Dr Pritchard was considering a stent placement, he is to evaluate today Past Medical History Cardiovascular: HTN GI: Other Heme/Onc: Cancer Past Surgical History Past Surgical History: Tonsillectomy, Other (previous peg tube) Family History Family History: No Significant Social History No ALCOHOL: none Drugs: None Current Problem List Problem List Problems Medical Problems: (1) Intractable vomiting with nausea Status: Acute Current Medications Current Medications Current Medications Dextrose/Sodium Chloride 1,000 ml @ 125 mls/hr 1X ONCE IV Last administered on 07/27/16 22:30; Start 07/27/16 at 22:15; Stop 07/28/16 at 06:14; Status DC Levofloxacin/ Dextrose 150 ml @ 100 mls/hr 1X ONCE IV Last administered on 23:13; Start 07/27/16 at 23:00; Stop 07/28/16 at 00:29; Status DC Albuterol/ Ipratropium (Duoneb) 3 ml RTQID NEB Last administered on 07/29/16 07:07; Start 07/28/16 at 08:00; Stop 07/29/16 at 07:59; Status DC Piperacillin Sod/ Tazobactam Sod 3.375 gm/Sodium Chloride 50 ml @ 100 mls/hr Q6HRS IV Last administered on 07/29/16 05:52; Start 07/28/16 at 10:00 Acetaminophen (Tylenol) 325 mg PRN Q6HRS PRN PO MILD PAIN / TEMP; Start at 09:30 Acetaminophen/ Hydrocodone Bitart (Lortab 5/325) 1 tab PRN Q6HRS PRN PO MODERATE TO SEVERE PAIN; Start 07/28/16 at 09:30 Hydralazine HCl (Apresoline) 10 mg PRN Q4HRS PRN IVP ELEVATED BP, SEE COMMENTS ; Start 07/28/16 at 09:30 Ondansetron HCl (Zofran) 4 mg PRN Q8HRS PRN IV NAUSEA/VOMITING; Start 07/28/16 at 09:30 Albuterol Sulfate (Ventolin Neb Soln) 2.5 mg PRN Q4HRS PRN NEB SHORTNESS OF BREATH; Start 07/28/16 at 09:30 Sodium Chloride 1,000 ml @ 75 mls/hr [id number] IV Last administered on 22:36; Start 07/28/16 at 09:30; Stop 07/29/16 at 03:15; Status DC Amino Acids/ Glycerin/ Electrolytes 1,000 ml @ 80 mls/hr [id number] IV Last administered on 07/29/16 04:53; Start 07/28/16 at 12:00 Iohexol (Omnipaque 300 Mg/ml) 75 ml 1X ONCE IV Last administered on 07/28/16 14:13; Start 07/28/16 at 13:45; Stop 07/28/16 at 13:46; Status DC Info (Do NOT chart on this entry -- for MONITORING) 1 each PRN DAILY PRN MC SEE COMMENTS; Start 07/28/16 at 13:45; Stop 07/30/16 at 13:44 Potassium Chloride/Sodium Chloride 1,000 ml @ 75 mls/hr [id number] IV Last administered on 07/29/16 05:01; Start 07/29/16 at 03:30 Potassium Chloride 100 ml @ 100 mls/hr Q1H IV Last administered on 07/29/16 11:04; Start 07/29/16 at 08:00; Stop 07/29/16 at 11:59; Status DC Albuterol/ Ipratropium (Duoneb) 3 ml RTQID NEB ; Start 07/29/16 at 12:00 Gadobutrol (Gadavist) 8 mmol 1X ONCE IV ; Start 07/29/16 at 12:30; Stop at 12:31; Status DC Active Scripts Active Reported Aspir 81 (Aspirin) 81 Mg Tablet.dr 1 Tab PO DAILY Colchicine 0.6 Mg Tablet 0.6 Mg PO DAILY Glucosamine & Chondroitin Cap (Glucosa Meneses 2KCL/Chondroitin Meneses) 1 Each Capsule 1 Each PO DAILY Benazepril Hcl 10 Mg Tablet 20 Mg PO DAILY Allergies Allergies: Coded Allergies: No Known Drug Allergies (Unverified , 07/12/16) ROS General: No: Chills, Other (fevers, + weight loss) PSYCHOLOGICAL ROS: No: Anxiety, Depression Eyes: No Blurry vision, No Double vision HEENT: YES: Other (see hpi) Hematological and Lymphatic: No: Bleeding Problems, Blood Clots Respiratory: YES: Cough, No: Shortness of breath Cardiovascular: No Chest Pain, No Palpitations Gastrointestinal: Yes Other (see hpi) Genitourinary: No Dysuria, No Hematuria Musculoskeletal: No Muscle Pain Neurological: No Confusion, No Numbness/Tingling Skin: No Pruritus, No Rash Physical Exam General: Alert, Oriented X3, Cooperative, No acute distress HEENT: Atraumatic, PERRLA Lungs: Clear to auscultation, Normal air movement Heart: Regular rate, Normal S1, Normal S2, No murmurs Abdomen: Soft, No tenderness, Other (previous peg scar) Extremities: No clubbing, No cyanosis Skin: No rashes, No breakdown Neuro: Normal speech, Sensation intact Psych/Mental Status: Mental status NL, Mood NL MUSCULOSKELETAL: No deformity, No swelling Vitals VITALS Vital Signs Date Time Temp Pulse Resp B/P (MAP) Pulse Ox O2 Delivery O2 Flow Rate FiO2 07/29/16 11:22 Room Air 07/29/16 11:00 98.7 66 18 139/83 (101) 96 98.7 07/28/16 08:00 2.0 Labs Labs Laboratory Tests Test 07/27/16 21:24 07/28/16 07:30 07/29/16 06:32 White Blood Count 16.8 x10^3/uL (4.0-11.0) 21.9 x10^3/uL (4.0-11.0) 13.3 x10^3/uL (4.0-11.0) Red Blood Count 4.52 x10^6/uL (4.30-5.70) 4.17 x10^6/uL (4.30-5.70) 3.97 x10^6/uL (4.30-5.70) Hemoglobin 13.6 g/dL (13.0-17.5) 12.6 g/dL (13.0-17.5) 12.1 g/dL (13.0-17.5) Hematocrit 40.0 % (39.0-53.0) 37.0 % (39.0-53.0) 34.7 % (39.0-53.0) Mean Corpuscular Volume 88 fL (79-100) 89 fL (79-100) 88 fL (79-100) Mean Corpuscular Hemoglobin 30 pg (25-35) 30 pg (25-35) 31 pg (25-35) Mean Corpuscular Hemoglobin Concent 34 g/dL (31-37) 34 g/dL (31-37) 35 g/dL (31-37) Red Cell Distribution Width 14.0 % (11.5-14.5) 14.6 % (11.5-14.5) 14.4 % (11.5-14.5) Platelet Count 284 x10^3/uL (140-400) 252 x10^3/uL (140-400) 236 x10^3/uL (140-400) Neutrophils (%) (Auto) 92 % (31-73) 90 % (31-73) 87 % (31-73) Lymphocytes (%) (Auto) 3 % (24-48) 4 % (24-48) 6 % (24-48) Monocytes (%) (Auto) 4 % (0-9) 6 % (0-9) 7 % (0-9) Eosinophils (%) (Auto) 0 % (0-3) 0 % (0-3) 1 % (0-3) Basophils (%) (Auto) 0 % (0-3) 0 % (0-3) 0 % (0-3) Neutrophils # (Auto) 15.5 x10^3uL (1.8-7.7) 19.7 x10^3uL (1.8-7.7) 11.5 x10^3uL (1.8-7.7) Lymphocytes # (Auto) 0.5 x10^3/uL (1.0-4.8) 0.9 x10^3/uL (1.0-4.8) 0.7 x10^3/uL (1.0-4.8) Monocytes # (Auto) 0.7 x10^3/uL (0.0-1.1) 1.2 x10^3/uL (0.0-1.1) 0.9 x10^3/uL (0.0-1.1) Eosinophils # (Auto) 0.1 x10^3/uL (0.0-0.7) 0.0 x10^3/uL (0.0-0.7) 0.1 x10^3/uL (0.0-0.7) Basophils # (Auto) 0.0 x10^3/uL (0.0-0.2) 0.1 x10^3/uL (0.0-0.2) 0.0 x10^3/uL (0.0-0.2) Segmented Neutrophils % 91 % (35-66) Lymphocytes % 5 % (24-48) Monocytes % 4 % (0-10) Platelet Estimate Adequate (ADEQUATE) Sodium Level 140 mmol/L (136-145) 139 mmol/L (136-145) 140 mmol/L (136-145) Potassium Level 3.1 mmol/L (3.5-5.1) 3.1 mmol/L (3.5-5.1) 2.8 mmol/L (3.5-5.1) Chloride Level 101 mmol/L (98-107) 102 mmol/L (98-107) 103 mmol/L (98-107) Carbon Dioxide Level 29 mmol/L (21-32) 30 mmol/L (21-32) 29 mmol/L (21-32) Anion Gap 10 (6-14) 7 (6-14) 8 (6-14) Blood Urea Nitrogen 18 mg/dL (8-26) 14 mg/dL (8-26) 12 mg/dL (8-26) Creatinine 0.9 mg/dL (0.7-1.3) 0.9 mg/dL (0.7-1.3) 0.9 mg/dL (0.7-1.3) Estimated GFR (Cockcroft-Gault) 83.4 83.4 83.4 BUN/Creatinine Ratio 20 (6-20) Glucose Level 113 mg/dL (70-99) 142 mg/dL (70-99) 113 mg/dL (70-99) Calcium Level 9.0 mg/dL (8.5-10.1) 8.4 mg/dL (8.5-10.1) 8.5 mg/dL (8.5-10.1) Total Bilirubin 1.1 mg/dL (0.2-1.0) Aspartate Amino Transf (AST/SGOT) 21 U/L (15-37) Alanine Aminotransferase (ALT/SGPT) 22 U/L (16-63) Alkaline Phosphatase 81 U/L (46-116) Total Protein 7.1 g/dL (6.4-8.2) Albumin 2.9 g/dL (3.4-5.0) Albumin/Globulin Ratio 0.7 (1.0-1.7) Laboratory Tests Test 07/29/16 06:32 White Blood Count 13.3 x10^3/uL (4.0-11.0) Red Blood Count 3.97 x10^6/uL (4.30-5.70) Hemoglobin 12.1 g/dL (13.0-17.5) Hematocrit 34.7 % (39.0-53.0) Mean Corpuscular Volume 88 fL (79-100) Mean Corpuscular Hemoglobin 31 pg (25-35) Mean Corpuscular Hemoglobin Concent 35 g/dL (31-37) Red Cell Distribution Width 14.4 % (11.5-14.5) Platelet Count 236 x10^3/uL (140-400) Neutrophils (%) (Auto) 87 % (31-73) Lymphocytes (%) (Auto) 6 % (24-48) Monocytes (%) (Auto) 7 % (0-9) Eosinophils (%) (Auto) 1 % (0-3) Basophils (%) (Auto) 0 % (0-3) Neutrophils # (Auto) 11.5 x10^3uL (1.8-7.7) Lymphocytes # (Auto) 0.7 x10^3/uL (1.0-4.8) Monocytes # (Auto) 0.9 x10^3/uL (0.0-1.1) Eosinophils # (Auto) 0.1 x10^3/uL (0.0-0.7) Basophils # (Auto) 0.0 x10^3/uL (0.0-0.2) Sodium Level 140 mmol/L (136-145) Potassium Level 2.8 mmol/L (3.5-5.1) Chloride Level 103 mmol/L (98-107) Carbon Dioxide Level 29 mmol/L (21-32) Anion Gap 8 (6-14) Blood Urea Nitrogen 12 mg/dL (8-26) Creatinine 0.9 mg/dL (0.7-1.3) Estimated GFR (Cockcroft-Gault) 83.4 Glucose Level 113 mg/dL (70-99) Calcium Level 8.5 mg/dL (8.5-10.1) Assessment/Plan Assessment/Plan esophageal cancer, dysphagia, esophageal mass I discussed with Dr Johnson --Dr Pritchard is involved, considering stent/peg/j tube we will be available if needed PERLITA MAYES MD 07/30/16 0801: CONSULT Allergies Allergies: Coded Allergies: No Known Drug Allergies (Unverified , 07/12/16) Assessment/Plan Assessment/Plan Reviewed, agree with above, happy to help as needed. LEVY GUIDO APRN July 29, 2016 13:28 PERLITA MAYES MD July 30, 2016 08:01
[2016-07-29 15:00] VITALS: BP 169/99
--- NOTE | 2016-07-29 16:10 | PDOC ---
PROGRESS NOTES Chief Complaint Chief Complaint dysphagia 1. Recurrent esoph mass, prior esophageal cancer, . HER2 testing requested. 2. Liver lesions uncertain etiology. Cysts per u/s. However the nodules are very small and will be better characterized by MRI - ordered MRI. 2. Odynophagia, Dr Pritchard to d/w pt regarding stent vs J-tube options. I d/w Dr Johnson - History of Present Illness History of Present Illness bx not performed as high risk for perforation. plan brushing for cytology Plan palliative chemo upon discharge. Vitals Vitals Vital Signs Date Time Temp Pulse Resp B/P (MAP) Pulse Ox O2 Delivery O2 Flow Rate FiO2 07/29/16 15:18 Room Air 07/29/16 15:00 97.9 82 18 169/99 (122) 97 97.9 07/28/16 08:00 2.0 Physical Exam General: Alert, Oriented X3, Cooperative, No acute distress Heart: Regular rate, Normal S1, Normal S2, No murmurs Lungs: Clear Abdomen: Soft, No tenderness, Other (previous peg scar) Extremities: No clubbing, No cyanosis Skin: No rashes, No breakdown Labs LABS Laboratory Tests Test 07/29/16 06:32 White Blood Count 13.3 x10^3/uL (4.0-11.0) Red Blood Count 3.97 x10^6/uL (4.30-5.70) Hemoglobin 12.1 g/dL (13.0-17.5) Hematocrit 34.7 % (39.0-53.0) Mean Corpuscular Volume 88 fL (79-100) Mean Corpuscular Hemoglobin 31 pg (25-35) Mean Corpuscular Hemoglobin Concent 35 g/dL (31-37) Red Cell Distribution Width 14.4 % (11.5-14.5) Platelet Count 236 x10^3/uL (140-400) Neutrophils (%) (Auto) 87 % (31-73) Lymphocytes (%) (Auto) 6 % (24-48) Monocytes (%) (Auto) 7 % (0-9) Eosinophils (%) (Auto) 1 % (0-3) Basophils (%) (Auto) 0 % (0-3) Neutrophils # (Auto) 11.5 x10^3uL (1.8-7.7) Lymphocytes # (Auto) 0.7 x10^3/uL (1.0-4.8) Monocytes # (Auto) 0.9 x10^3/uL (0.0-1.1) Eosinophils # (Auto) 0.1 x10^3/uL (0.0-0.7) Basophils # (Auto) 0.0 x10^3/uL (0.0-0.2) Sodium Level 140 mmol/L (136-145) Potassium Level 2.8 mmol/L (3.5-5.1) Chloride Level 103 mmol/L (98-107) Carbon Dioxide Level 29 mmol/L (21-32) Anion Gap 8 (6-14) Blood Urea Nitrogen 12 mg/dL (8-26) Creatinine 0.9 mg/dL (0.7-1.3) Estimated GFR (Cockcroft-Gault) 83.4 Glucose Level 113 mg/dL (70-99) Calcium Level 8.5 mg/dL (8.5-10.1) Review of Systems Review of Systems no n.v/d Assessment and Plan Assessmemt and Plan Problems Medical Problems: (1) Intractable vomiting with nausea Status: Acute Problems: Comment Review of Relevant I have reviewed the following items skyler (where applicable) has been applied. Labs Laboratory Tests Test 07/27/16 21:24 07/28/16 07:30 07/29/16 06:32 White Blood Count 16.8 x10^3/uL (4.0-11.0) 21.9 x10^3/uL (4.0-11.0) 13.3 x10^3/uL (4.0-11.0) Red Blood Count 4.52 x10^6/uL (4.30-5.70) 4.17 x10^6/uL (4.30-5.70) 3.97 x10^6/uL (4.30-5.70) Hemoglobin 13.6 g/dL (13.0-17.5) 12.6 g/dL (13.0-17.5) 12.1 g/dL (13.0-17.5) Hematocrit 40.0 % (39.0-53.0) 37.0 % (39.0-53.0) 34.7 % (39.0-53.0) Mean Corpuscular Volume 88 fL (79-100) 89 fL (79-100) 88 fL (79-100) Mean Corpuscular Hemoglobin 30 pg (25-35) 30 pg (25-35) 31 pg (25-35) Mean Corpuscular Hemoglobin Concent 34 g/dL (31-37) 34 g/dL (31-37) 35 g/dL (31-37) Red Cell Distribution Width 14.0 % (11.5-14.5) 14.6 % (11.5-14.5) 14.4 % (11.5-14.5) Platelet Count 284 x10^3/uL (140-400) 252 x10^3/uL (140-400) 236 x10^3/uL (140-400) Neutrophils (%) (Auto) 92 % (31-73) 90 % (31-73) 87 % (31-73) Lymphocytes (%) (Auto) 3 % (24-48) 4 % (24-48) 6 % (24-48) Monocytes (%) (Auto) 4 % (0-9) 6 % (0-9) 7 % (0-9) Eosinophils (%) (Auto) 0 % (0-3) 0 % (0-3) 1 % (0-3) Basophils (%) (Auto) 0 % (0-3) 0 % (0-3) 0 % (0-3) Neutrophils # (Auto) 15.5 x10^3uL (1.8-7.7) 19.7 x10^3uL (1.8-7.7) 11.5 x10^3uL (1.8-7.7) Lymphocytes # (Auto) 0.5 x10^3/uL (1.0-4.8) 0.9 x10^3/uL (1.0-4.8) 0.7 x10^3/uL (1.0-4.8) Monocytes # (Auto) 0.7 x10^3/uL (0.0-1.1) 1.2 x10^3/uL (0.0-1.1) 0.9 x10^3/uL (0.0-1.1) Eosinophils # (Auto) 0.1 x10^3/uL (0.0-0.7) 0.0 x10^3/uL (0.0-0.7) 0.1 x10^3/uL (0.0-0.7) Basophils # (Auto) 0.0 x10^3/uL (0.0-0.2) 0.1 x10^3/uL (0.0-0.2) 0.0 x10^3/uL (0.0-0.2) Segmented Neutrophils % 91 % (35-66) Lymphocytes % 5 % (24-48) Monocytes % 4 % (0-10) Platelet Estimate Adequate (ADEQUATE) Sodium Level 140 mmol/L (136-145) 139 mmol/L (136-145) 140 mmol/L (136-145) Potassium Level 3.1 mmol/L (3.5-5.1) 3.1 mmol/L (3.5-5.1) 2.8 mmol/L (3.5-5.1) Chloride Level 101 mmol/L (98-107) 102 mmol/L (98-107) 103 mmol/L (98-107) Carbon Dioxide Level 29 mmol/L (21-32) 30 mmol/L (21-32) 29 mmol/L (21-32) Anion Gap 10 (6-14) 7 (6-14) 8 (6-14) Blood Urea Nitrogen 18 mg/dL (8-26) 14 mg/dL (8-26) 12 mg/dL (8-26) Creatinine 0.9 mg/dL (0.7-1.3) 0.9 mg/dL (0.7-1.3) 0.9 mg/dL (0.7-1.3) Estimated GFR (Cockcroft-Gault) 83.4 83.4 83.4 BUN/Creatinine Ratio 20 (6-20) Glucose Level 113 mg/dL (70-99) 142 mg/dL (70-99) 113 mg/dL (70-99) Calcium Level 9.0 mg/dL (8.5-10.1) 8.4 mg/dL (8.5-10.1) 8.5 mg/dL (8.5-10.1) Total Bilirubin 1.1 mg/dL (0.2-1.0) Aspartate Amino Transf (AST/SGOT) 21 U/L (15-37) Alanine Aminotransferase (ALT/SGPT) 22 U/L (16-63) Alkaline Phosphatase 81 U/L (46-116) Total Protein 7.1 g/dL (6.4-8.2) Albumin 2.9 g/dL (3.4-5.0) Albumin/Globulin Ratio 0.7 (1.0-1.7) Laboratory Tests Test 07/29/16 06:32 White Blood Count 13.3 x10^3/uL (4.0-11.0) Red Blood Count 3.97 x10^6/uL (4.30-5.70) Hemoglobin 12.1 g/dL (13.0-17.5) Hematocrit 34.7 % (39.0-53.0) Mean Corpuscular Volume 88 fL (79-100) Mean Corpuscular Hemoglobin 31 pg (25-35) Mean Corpuscular Hemoglobin Concent 35 g/dL (31-37) Red Cell Distribution Width 14.4 % (11.5-14.5) Platelet Count 236 x10^3/uL (140-400) Neutrophils (%) (Auto) 87 % (31-73) Lymphocytes (%) (Auto) 6 % (24-48) Monocytes (%) (Auto) 7 % (0-9) Eosinophils (%) (Auto) 1 % (0-3) Basophils (%) (Auto) 0 % (0-3) Neutrophils # (Auto) 11.5 x10^3uL (1.8-7.7) Lymphocytes # (Auto) 0.7 x10^3/uL (1.0-4.8) Monocytes # (Auto) 0.9 x10^3/uL (0.0-1.1) Eosinophils # (Auto) 0.1 x10^3/uL (0.0-0.7) Basophils # (Auto) 0.0 x10^3/uL (0.0-0.2) Sodium Level 140 mmol/L (136-145) Potassium Level 2.8 mmol/L (3.5-5.1) Chloride Level 103 mmol/L (98-107) Carbon Dioxide Level 29 mmol/L (21-32) Anion Gap 8 (6-14) Blood Urea Nitrogen 12 mg/dL (8-26) Creatinine 0.9 mg/dL (0.7-1.3) Estimated GFR (Cockcroft-Gault) 83.4 Glucose Level 113 mg/dL (70-99) Calcium Level 8.5 mg/dL (8.5-10.1) Microbiology 07/27/16 Blood Culture - Preliminary, Resulted NO GROWTH AFTER 1 DAY Medications Current Medications Dextrose/Sodium Chloride 1,000 ml @ 125 mls/hr 1X ONCE IV Last administered on 07/27/16 22:30; Start 07/27/16 at 22:15; Stop 07/28/16 at 06:14; Status DC Levofloxacin/ Dextrose 150 ml @ 100 mls/hr 1X ONCE IV Last administered on 23:13; Start 07/27/16 at 23:00; Stop 07/28/16 at 00:29; Status DC Albuterol/ Ipratropium (Duoneb) 3 ml RTQID NEB Last administered on 07/29/16 07:07; Start 07/28/16 at 08:00; Stop 07/29/16 at 07:59; Status DC Piperacillin Sod/ Tazobactam Sod 3.375 gm/Sodium Chloride 50 ml @ 100 mls/hr Q6HRS IV Last administered on 07/29/16 13:24; Start 07/28/16 at 10:00 Acetaminophen (Tylenol) 325 mg PRN Q6HRS PRN PO MILD PAIN / TEMP; Start at 09:30 Acetaminophen/ Hydrocodone Bitart (Lortab 5/325) 1 tab PRN Q6HRS PRN PO MODERATE TO SEVERE PAIN; Start 07/28/16 at 09:30 Hydralazine HCl (Apresoline) 10 mg PRN Q4HRS PRN IVP ELEVATED BP, SEE COMMENTS ; Start 07/28/16 at 09:30 Ondansetron HCl (Zofran) 4 mg PRN Q8HRS PRN IV NAUSEA/VOMITING; Start 07/28/16 at 09:30 Albuterol Sulfate (Ventolin Neb Soln) 2.5 mg PRN Q4HRS PRN NEB SHORTNESS OF BREATH; Start 07/28/16 at 09:30 Sodium Chloride 1,000 ml @ 75 mls/hr [id number] IV Last administered on 22:36; Start 07/28/16 at 09:30; Stop 07/29/16 at 03:15; Status DC Amino Acids/ Glycerin/ Electrolytes 1,000 ml @ 80 mls/hr [id number] IV Last administered on 07/29/16 04:53; Start 07/28/16 at 12:00 Iohexol (Omnipaque 300 Mg/ml) 75 ml 1X ONCE IV Last administered on 07/28/16 14:13; Start 07/28/16 at 13:45; Stop 07/28/16 at 13:46; Status DC Info (Do NOT chart on this entry -- for MONITORING) 1 each PRN DAILY PRN MC SEE COMMENTS; Start 07/28/16 at 13:45; Stop 07/30/16 at 13:44 Potassium Chloride/Sodium Chloride 1,000 ml @ 75 mls/hr [id number] IV Last administered on 07/29/16 05:01; Start 07/29/16 at 03:30 Potassium Chloride 100 ml @ 100 mls/hr Q1H IV Last administered on 07/29/16 14:29; Start 07/29/16 at 08:00; Stop 07/29/16 at 11:59; Status DC Albuterol/ Ipratropium (Duoneb) 3 ml RTQID NEB Last administered on 07/29/16 15:17; Start 07/29/16 at 12:00 Gadobutrol (Gadavist) 8 mmol 1X ONCE IV Last administered on 07/29/16 13:00; Start 07/29/16 at 12:30; Stop 07/29/16 at 12:31; Status DC Active Scripts Active Reported Aspir 81 (Aspirin) 81 Mg Tablet.dr 1 Tab PO DAILY Colchicine 0.6 Mg Tablet 0.6 Mg PO DAILY Glucosamine & Chondroitin Cap (Glucosa Meneses 2KCL/Chondroitin Meneses) 1 Each Capsule 1 Each PO DAILY Benazepril Hcl 10 Mg Tablet 20 Mg PO DAILY Vitals/I & O Vital Sign - Last 24 Hours 07/28/16 07/28/16 07/28/16 07/28/16 16:14 19:00 19:50 20:30 Temp 97.8 97.8 Pulse 79 Resp 20 B/P (MAP) 148/70 (96) Pulse Ox 92 94 O2 Delivery Room Air Room Air Room Air Room Air 07/28/16 07/29/16 07/29/16 07/29/16 23:00 03:00 07:00 07:09 Temp 97.8 97.7 98.7 97.8 97.7 98.7 Pulse 68 75 93 Resp 20 20 20 B/P (MAP) 138/61 (86) 161/89 (113) 140/75 (96) Pulse Ox 94 94 91 93 O2 Delivery Room Air Room Air Room Air Room Air 07/29/16 07/29/16 07/29/16 07/29/16 08:00 11:00 11:22 15:00 Temp 98.7 97.9 98.7 97.9 Pulse 66 82 Resp 18 18 B/P (MAP) 139/83 (101) 169/99 (122) Pulse Ox 96 97 O2 Delivery Room Air Room Air Room Air Room Air 07/29/16 15:18 O2 Delivery Room Air Intake and Output 07/28/16 07/28/16 07/29/16 15:00 23:00 07:00 Intake Total 0 ml Balance 0 ml ADRIANE HORNER MD July 29, 2016 16:10
[2016-07-29 19:00] VITALS: BP 125/92
[2016-07-29 22:53] VITALS: BP 187/82
[2016-07-30] MEDS: PIPERACILLIN/TAZOBACTAM 3.375 GM in IV NORMAL SALINE 50ML 50 ML IV SCH ×3 (00:59→11:38)
--- NOTE | 2016-07-30 01:19 | CONS ---
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 He received comprehensive chemotherapy with radiation treatment, completing 54 Gy to the distal esophageal lesion and 50.4 Gy to the proximal esophageal lesion completed here in 03/2013. He now has strictured mass in the distal esophagus noted on recent upper endoscopy. He has had effort to dilatation with no improvement. We were asked to see him regarding further treatment management. HISTORY OF PRESENT ILLNESS: The patient was initially doing well following his initial treatment over 3 years ago. He now notes a 1-month history of difficulty swallowing to the point where he got completely blocked and now has difficulty even managing his elevation. He has had 3 upper endoscopies, [address] Pritchard and [address] Charan Daley Upper endoscopy here on 07/12/2016 revealed dysphagia secondary to meet impaction with radiation esophagitis and stricture. Pathology from biopsies performed at that time revealed fragment of unremarkable squamous epithelium, fragment of gastric columnar epithelial and mild chronic inflammation, no evidence for dysplasia or carcinoma was seen. During this time, he has noted 15-pound weight loss with no bloody or tarry stools, no chest pain, nausea, or vomiting. Since his endoscopy, he has had some modest nonproductive cough. 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 ALLERGIES: No known allergies. MEDICATIONS: See hospital list. PAST MEDICAL HISTORY: Remarkable for gastroesophageal reflux disease, hypertension, and prior tonsillectomy. SOCIAL HISTORY: for 30 years, 1 stepdaughter that he adopted, 1 adult son living at [place], [place]. Distant history of smoking, has a [id number] history of smoking, quit in 1993. Minimal alcohol use. PHYSICAL EXAMINATION: GENERAL: Reveals a robust pleasant gentleman in no acute distress. HEENT: Unremarkable. LYMPH NODES: He had no cervical or supraclavicular adenopathy. LUNGS: Clear. HEART: Regular. ABDOMEN: Revealed no hepatomegaly, masses or tenderness. EXTREMITIES: Revealed no clubbing, cyanosis or edema. LABORATORY STUDIES: CT scan of the chest from 07/10/2016 was reviewed. It revealed a dilated proximal esophagus to strictured mass in the distal thoracic esophagus extending to the GE junction measuring 9.5 cm in length concerning for recurrent esophageal carcinoma. Liver and kidneys revealed simple cysts. No mediastinal or hilar adenopathy noted. IMAGING: Following admission here including CT scan of the abdomen and pelvis again revealed hepatic and renal cyst with a mass in the distal esophagus. No evidence for retroperitoneal adenopathy or ascites. Ultrasonography on 07/28/2016 confirm hepatic and renal cysts. MRI of the abdomen on my review with gadolinium also confirmed hepatic and renal cysts with no evidence for metastatic disease. CBC: Hemoglobin 12.1, white count 13,300, and platelet count 236,000. Chemistry panel revealed low potassium of 2.8. Normal creatinine 0.9, glucose of 113, and calcium 8.5. ASSESSMENT AND PLAN: In summary, my impression is that of multicentric adenocarcinoma of the proximal and distal thoracic esophagus, status post radiation and chemotherapy 3 years ago. He now has a symptomatic distal esophageal mass with stricture. He has had an effort to dilatation with no success in the recent past. At this time, he is being considered for either PEG tube or stenting for symptomatic improvement. PEG tube would certainly assist with nutrition and hydration, but would not allow him to manage his secretions better and therefore a stent seemed to be a better choice, but certainly has its own long-term complications issues as well. We have not confirmed malignancy in the distal esophagus, although this is our current concerned. I would recommend the consideration of PET CT imaging to help assist in delineating the etiology of this mass. I will also contact Dr. Pritchard for his impressions following his outpatient endoscopies. I discussed this in detail with the patient and his . Thank you for allowing us to participate in his evaluation. LEONID RUBALCAVA MD DR: MILLY/mani JOB#: [id number] / [id number] BUFFY Torres MD, SRINIVASA MD MTDD
[2016-07-30 03:00] VITALS: BP 181/104
[2016-07-30] MEDS ORDERED: MORPHINE SULFATE 4 MG/ML DISP.SYRIN. IV PRN (04:30)
[2016-07-30 05:09] LABS: BASO % 0 % (0-3); EOS % 2 % (0-3); HEMATOCRIT 37.3 % (39.0-53.0); HEMOGLOBIN 12.6 g/dL (13.0-17.5); LYMPH # 0.6 x10^3/uL (1.0-4.8); LYMPH % 5 % (24-48); MEAN CORPUSCULAR HEMOGLOBIN 30 pg (25-35); MEAN CORPUSCULAR HGB CONC 34 g/dL (31-37); MEAN CORPUSCULAR VOLUME 88 fL (79-100); MONO % 7 % (0-9); NEUT % 85 % (31-73); PLATELET COUNT 242 x10^3/uL (140-400); RED BLOOD COUNT 4.24 x10^6/uL (4.30-5.70); RED CELL DISTRIBUTION WIDTH 14.3 % (11.5-14.5); WHITE BLOOD COUNT 12.2 x10^3/uL (4.0-11.0)
[2016-07-30 05:33] LABS: CALCIUM 8.7 mg/dL (8.5-10.1); GFR 73.9; POTASSIUM 3.8 mmol/L (3.5-5.1)
[2016-07-30 07:00] VITALS: BP 154/90
[2016-07-30] MEDS: IPRATRPIUM/ALBUTEROL 0.5/2.5MG 3 ML NEBU. NEB SCH ×2 (07:47→11:25)
[2016-07-30] MEDS: AMINO AC 3%/ELECTROLYTE/GLYCER 1,000 ML IV SCH (08:22)
--- NOTE | 2016-07-30 09:24 | PDOC ---
Provider Note Provider Note 71 yo man with multicentric esophageal carcinoma of upper and lower thoracic esophagus s/p radiation and chemo completed 03/2013. Now with strictured mass in lower esophagus. EGD here 06/2016 noted food at stricture which was removed. Biopsies benign with no malignancy seen. Now debating between stent and PEG tube placement for palliation of stricture. I have contacted Dr Pritchard to review his outpatient EGD assessments. Following stent or PEG, I recommend outpatient PET/CT to further characterize presence and extent of recurrence. Discussed with patient, and Bentley Deras and Kevin. LEONID RUBALCAVA MD July 30, 2016 09:24
--- NOTE | 2016-07-30 09:30 | PDOC ---
Subjective: Subjective: Onc f/u- Esophageal cancer D/w pt, daughter, Dr. Deras and [facility]. Pt didn't sleep well, frequent urination, gout attack in toe overnight Coughing in AM from secretions continues. Objective: Vital Signs: Vital Signs Date Time Temp Pulse Resp B/P (MAP) Pulse Ox O2 Delivery O2 Flow Rate FiO2 07/30/16 08:00 Room Air 07/30/16 07:48 97 07/30/16 07:00 97.7 85 18 154/90 (111) 97.7 07/30/16 05:51 2.0 Physical Exam: Heart: Regular rate Extremities: No edema General: Alert, Oriented X3, Cooperative, No acute distress Lungs: Other (no resp distress) Psych/Mental Status: Mental status NL, Mood NL Labs/Imaging: MRI liver pending Assessment/Plan A/P: 1. Concern for 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 Bx not performed as high risk for perforation. However, endoscopy 1 mth ago with bx was negative for malignancy. Appreciate Dr. Madrid's input. Planning for outpt PET. Will schedule outpt f/u with Dr. Johnson and tumor board discussion following PET. 2. Liver lesions uncertain etiology. Cysts per u/s. However the nodules are very small and will be better characterized by MRI, report pending. 2. Odynophagia, Dr Pritchard to d/w pt regarding stent vs J-tube options. J tube likely needed for nutritional management. D/w Dr. Madrid and Braeden. Ok to DC when nutritional needs met. DAVE MCGREGOR DO July 30, 2016 09:30
--- NOTE | 2016-07-30 10:55 | PDOC3 ---
Discharge Summary Visit Information Date of Admission: July 27, 2016 Date of Discharge: July 30, 2016 Admitting Diagnosis: dysphagia Final Diagnosis dysphagia aspiration pneumonitis SIRS, likely not infectious, 1. Recurrent esoph mass, prior esophageal cancer, . HER2 testing requested. 2. Liver lesions uncertain etiology. Cysts per u/s. However the nodules are very small 3. malnutrition, POA 4. hypokalemia, replaced Problems Medical Problems: (1) Intractable vomiting with nausea Status: Acute Brief Hospital Course Allergies Allergies Coded Allergies Type Severity Reaction Last Updated Verified No Known Drug Allergies 07/12/16 No Vital Signs Vital Signs Date Time Temp Pulse Resp B/P (MAP) Pulse Ox O2 Delivery O2 Flow Rate FiO2 07/30/16 08:00 Room Air 07/30/16 07:48 97 07/30/16 07:00 97.7 85 18 154/90 (111) 97.7 07/30/16 05:51 2.0 Lab Results Laboratory Tests Test 07/29/16 06:32 07/29/16 16:15 07/30/16 04:30 White Blood Count 13.3 x10^3/uL (4.0-11.0) 12.2 x10^3/uL (4.0-11.0) Red Blood Count 3.97 x10^6/uL (4.30-5.70) 4.24 x10^6/uL (4.30-5.70) Hemoglobin 12.1 g/dL (13.0-17.5) 12.6 g/dL (13.0-17.5) Hematocrit 34.7 % (39.0-53.0) 37.3 % (39.0-53.0) Mean Corpuscular Volume 88 fL (79-100) 88 fL (79-100) Mean Corpuscular Hemoglobin 31 pg (25-35) 30 pg (25-35) Mean Corpuscular Hemoglobin Concent 35 g/dL (31-37) 34 g/dL (31-37) Red Cell Distribution Width 14.4 % (11.5-14.5) 14.3 % (11.5-14.5) Platelet Count 236 x10^3/uL (140-400) 242 x10^3/uL (140-400) Neutrophils (%) (Auto) 87 % (31-73) 85 % (31-73) Lymphocytes (%) (Auto) 6 % (24-48) 5 % (24-48) Monocytes (%) (Auto) 7 % (0-9) 7 % (0-9) Eosinophils (%) (Auto) 1 % (0-3) 2 % (0-3) Basophils (%) (Auto) 0 % (0-3) 0 % (0-3) Neutrophils # (Auto) 11.5 x10^3uL (1.8-7.7) 10.4 x10^3uL (1.8-7.7) Lymphocytes # (Auto) 0.7 x10^3/uL (1.0-4.8) 0.6 x10^3/uL (1.0-4.8) Monocytes # (Auto) 0.9 x10^3/uL (0.0-1.1) 0.9 x10^3/uL (0.0-1.1) Eosinophils # (Auto) 0.1 x10^3/uL (0.0-0.7) 0.2 x10^3/uL (0.0-0.7) Basophils # (Auto) 0.0 x10^3/uL (0.0-0.2) 0.0 x10^3/uL (0.0-0.2) Sodium Level 140 mmol/L (136-145) 140 mmol/L (136-145) Potassium Level 2.8 mmol/L (3.5-5.1) 3.0 mmol/L (3.5-5.1) 3.8 mmol/L (3.5-5.1) Chloride Level 103 mmol/L (98-107) 105 mmol/L (98-107) Carbon Dioxide Level 29 mmol/L (21-32) 26 mmol/L (21-32) Anion Gap 8 (6-14) 9 (6-14) Blood Urea Nitrogen 12 mg/dL (8-26) 9 mg/dL (8-26) Creatinine 0.9 mg/dL (0.7-1.3) 1.0 mg/dL (0.7-1.3) Estimated GFR (Cockcroft-Gault) 83.4 73.9 Glucose Level 113 mg/dL (70-99) 101 mg/dL (70-99) Calcium Level 8.5 mg/dL (8.5-10.1) 8.7 mg/dL (8.5-10.1) Laboratory Tests Test 07/29/16 16:15 07/30/16 04:30 Potassium Level 3.0 mmol/L (3.5-5.1) 3.8 mmol/L (3.5-5.1) White Blood Count 12.2 x10^3/uL (4.0-11.0) Red Blood Count 4.24 x10^6/uL (4.30-5.70) Hemoglobin 12.6 g/dL (13.0-17.5) Hematocrit 37.3 % (39.0-53.0) Mean Corpuscular Volume 88 fL (79-100) Mean Corpuscular Hemoglobin 30 pg (25-35) Mean Corpuscular Hemoglobin Concent 34 g/dL (31-37) Red Cell Distribution Width 14.3 % (11.5-14.5) Platelet Count 242 x10^3/uL (140-400) Neutrophils (%) (Auto) 85 % (31-73) Lymphocytes (%) (Auto) 5 % (24-48) Monocytes (%) (Auto) 7 % (0-9) Eosinophils (%) (Auto) 2 % (0-3) Basophils (%) (Auto) 0 % (0-3) Neutrophils # (Auto) 10.4 x10^3uL (1.8-7.7) Lymphocytes # (Auto) 0.6 x10^3/uL (1.0-4.8) Monocytes # (Auto) 0.9 x10^3/uL (0.0-1.1) Eosinophils # (Auto) 0.2 x10^3/uL (0.0-0.7) Basophils # (Auto) 0.0 x10^3/uL (0.0-0.2) Sodium Level 140 mmol/L (136-145) Chloride Level 105 mmol/L (98-107) Carbon Dioxide Level 26 mmol/L (21-32) Anion Gap 9 (6-14) Blood Urea Nitrogen 9 mg/dL (8-26) Creatinine 1.0 mg/dL (0.7-1.3) Estimated GFR (Cockcroft-Gault) 73.9 Glucose Level 101 mg/dL (70-99) Calcium Level 8.7 mg/dL (8.5-10.1) Brief Hospital Course Mr. Gillespie is a 71 old man with multicentric esophageal carcinoma of upper and lower thoracic esophagus s/p radiation and chemo completed 03/2013. Now with strictured mass in lower esophagus. EGD here 06/2016 noted food at stricture which was removed. Biopsies benign with no malignancy seen. Now debating between stent and PEG tube placement for palliation of stricture. seen by Dr Pritchard no clear plan as to J-tube or stent options, pt was on PPN, potassium replaced Zosyn started for aspiration, leukcytosis, SIRS, likely no infection, CXR clear, no cough or symptoms per oncology, recommend outpatient PET/CT Discharge Information Condition at Discharge: Improved Follow Up: Weeks Disposition/Orders: D/C to Home Scheduled Aspirin (Aspir 81), 1 TAB PO DAILY, (Reported) Benazepril Hcl (Benazepril Hcl), 20 MG PO DAILY, (Reported) Colchicine (Colchicine), 0.6 MG PO DAILY, (Reported) Glucosa Meneses 2KCL/Chondroitin Meneses (Glucosamine & Chondroitin Cap), 1 EACH PO DAILY, (Reported) Patient Instructions Patient Instructions to [facility] for GI eval, surg, endo ultrasound Time > 30 min MRI abd done, results pending CT eval 1. Diffuse wall thickening of the distal esophagus suspicious for esophageal neoplasm. Evaluation with endoscopy exam may be of additional benefit if not already performed. 2. Multiple small subcentimeter low attenuating nodules scattered throughout the right and left hepatic lobe. These are too small to be characterized and could represent cysts, however metastasis not excluded. Evaluation with abdominal ultrasound may be obtained to ensure cystic nature of these abnormalities. Alternatively MRI abdomen using hepatic protocol may be performed. 3. Atheromatous aortic calcification with mild aneurysm of the infrarenal aorta. 4. Nonobstructing left renal calculus and left renal cysts. 5. Prostatomegaly ADRIANE HORNER MD July 30, 2016 10:55
[2016-07-30 11:00] VITALS: BP 152/97
[2016-07-30] MEDS ORDERED: GADOBUTROL 10 MMOL/10 ML VIAL IV ONE (11:00)
[2016-07-30 12:12] VITALS: BP 152/97
--- NOTE | 2016-07-30 13:36 | RAD ---
Exam performed: MRI of the abdomen without and with contrast using multiphasic is performed. History: History of esophageal cancer, follow-up hepatic lesions Date of service: 07/29/16. Comparison: CT abdomen pelvis from 07/28/16. Technique: Routine multiplanar and multiple sequence imaging of the abdomen is performed before and after intravenous administration of 8 cc of gadolinium rest intravenously. Multiphasic imaging the liver was performed. Findings: The liver is normal in size and signal intensity. There are numerous small masses throughout right and left hepatic lobe, demonstrating top signal on T1 and bright on T2. The largest lesion measures up to 1.2 cm the left hepatic lobe as well as 1.2 cm in the inferior right hepatic lobe. No definite contrast enhancement is seen in any of these lesions. Spleen, pancreas and gallbladder appear normal. Both adrenal glands and bilateral kidneys are normal in size. Simple bilateral renal cysts. Atheromatous calcification of the aorta with mild aneurysmal dilatation. No retroperitoneal masses. No free fluid. There is wall thickening of the distal esophagus at the gastroesophageal junction . Impression: 1. Multiple hepatic masses consistent with simple cysts. 2. Bilateral renal cysts. 3. Thickening of the distal esophageal wall and gastroesophageal junction consistent with previously known esophageal neoplasm
== END 2016-07-30 13:40 | disposition short-term general hospital (02) | DRG 391 ==
LOC: ER 20:56 → 5 NORTH 22:00
PROVIDERS: ADMIT Internal Medicine Hematology & Oncology; ATTEND Internal Medicine Hematology & Oncology
DX: R13.10 Dysphagia, unspecified (principal); J69.0 Pneumonitis due to inhalation of food and vomit; C15.9 Malignant neoplasm of esophagus, unspecified; E44.0 Moderate protein-calorie malnutrition; E46 Unspecified protein-calorie malnutrition; R65.10 Systemic inflammatory response syndrome (SIRS) of non-infectious origin without acute organ dysfunction; C15.5 Malignant neoplasm of lower third of esophagus; K22.8 Other specified diseases of esophagus; E86.0 Dehydration; E87.6 Hypokalemia; I10 Essential (primary) hypertension; K21.0 Gastro-esophageal reflux disease with esophagitis; K76.89 Other specified diseases of liver; M10.9 Gout, unspecified; R09.02 Hypoxemia; Y84.2 Radiological procedure and radiotherapy as the cause of abnormal reaction of the patient, or of later complication, without mention of misadventure at the time of the procedure; Z82.49 Family history of ischemic heart disease and other diseases of the circulatory system; Z85.01 Personal history of malignant neoplasm of esophagus; Z92.21 Personal history of antineoplastic chemotherapy; Z87.891 Personal history of nicotine dependence; Z92.3 Personal history of irradiation; Z68.22 Body mass index [BMI] 22.0-22.9, adult; Z80.8 Family history of malignant neoplasm of other organs or systems
CPT/HCPCS: 36415; 71010; 74177; 74183; 76700; 80048; 80053; 84132; 85007; 85027; 87040; 93005; 94250; 94640; 94760; 96365; A9585; J0360; J1956; J2270; J2543; J3480; J7030; J7620; Q9967; 99285-25

== ENCOUNTER 2016-10-01 07:11 | Inpatient (IN) | payer OTHER ==
[~2016-10-01] VITALS: Ht 188 cm; Wt 72.7 kg
[2016-10-01] MEDS ORDERED: ONDANSETRON PF 4 MG/2 ML VIAL. IV ONE (07:15)
--- NOTE | 2016-10-01 07:18 | PHYS DOC ---
Past Medical History Past Medical History: Cancer, Other Additional Past Medical Histor: esophageal cancer Past Surgical History: Tonsillectomy, Other Additional Past Surgical Histo: PEG, PORT Alcohol Use: Rarely Drug Use: None Adult General Chief Complaint Chief Complaint: WEAKNESS/GENERALIZED HPI HPI Patient is a 71 year old male who presents with weakness, dizziness and nausea. Patient states last time he went to bed he was completely fine. He does have a history of esophageal cancer and had a port placed recently and is starting chemotherapy tomorrow. He states this morning he felt very weak and very dizzy. He states he was not able to get out of bed as he felt so poorly. He denies any chest pain, he does feel nauseated denies any abdominal pain. He states he was hospitalized for 10 days here approximately 2 weeks ago when they put his PEG tube in. He also states he's been having a cough all night long. Review of Systems Review of Systems Constitutional: Denies fever or chills, positive for generalized weakness Eyes: Denies change in visual acuity, redness, or eye pain [] HENT: Denies nasal congestion or sore throat [] Respiratory: Denies cough or shortness of breath [] Cardiovascular: No additional information not addressed in HPI [] GI: Denies abdominal pain,, vomiting, bloody stools or diarrhea, positive for nausea[] : Denies dysuria or hematuria [] Musculoskeletal: Denies back pain or joint pain [] Integument: Denies rash or skin lesions [] Neurologic: Denies headache, focal weakness or sensory changes [] Endocrine: Denies polyuria or polydipsia [] Current Medications Current Medications Current Medications Medications (Trade) Dose Ordered Sig/[facility] Start Time Stop Time Status Last Admin Dose Admin Ondansetron HCl (Zofran) 4 mg 1X ONCE 10/01/16 07:15 10/01/16 07:18 DC 10/01/16 07:52 4 MG Allergies Allergies Allergies Coded Allergies Type Severity Reaction Last Updated Verified No Known Drug Allergies 07/12/16 No Physical Exam Physical Exam Constitutional: Well developed, well nourished, no acute distress, non-toxic appearance. [] HENT: Normocephalic, atraumatic, bilateral external ears normal, oropharynx moist, no oral exudates, nose normal. [] Eyes: PERRLA, EOMI, conjunctiva normal, no discharge. [] Neck: Normal range of motion, no tenderness, supple, no stridor. [] Cardiovascular:Heart rate regular rhythm, no murmur [] Lungs & Thorax: Bilateral breath sounds clear to auscultation. Port-A-Cath noted in the right upper chest with ecchymosis surrounding it, no erythema appreciated. Abdomen: Bowel sounds normal, soft, no tenderness, no masses, no pulsatile masses. Midline scar in the lower abdomen as well healed, PEG tube in the left upper quadrant Skin: Warm, dry, no erythema, no rash. [] Back: No tenderness, no CVA tenderness. [] Extremities: No tenderness, no cyanosis, no clubbing, ROM intact, no edema. [] Neurologic: Alert and oriented X 3, normal motor function, normal sensory function, no focal deficits noted. [] Psychologic: Affect normal, judgement normal, mood normal. [] Current Patient Data Vital Signs Vital Signs Date Time Temp Pulse Resp B/P (MAP) Pulse Ox O2 Delivery O2 Flow Rate FiO2 10/01/16 07:20 145 28 134/91 (105) 90 Nasal Cannula 3.0 Lab Values Laboratory Tests Test 10/01/16 07:23 White Blood Count 24.7 x10^3/uL (4.0-11.0) H Red Blood Count 4.50 x10^6/uL (4.30-5.70) Hemoglobin 13.0 g/dL (13.0-17.5) Hematocrit 39.2 % (39.0-53.0) Mean Corpuscular Volume 87 fL (79-100) Mean Corpuscular Hemoglobin 29 pg (25-35) Mean Corpuscular Hemoglobin Concent 33 g/dL (31-37) Red Cell Distribution Width 16.5 % (11.5-14.5) H Platelet Count 513 x10^3/uL (140-400) #H Neutrophils (%) (Auto) 95 % (31-73) H Lymphocytes (%) (Auto) 3 % (24-48) L Monocytes (%) (Auto) 2 % (0-9) Eosinophils (%) (Auto) 0 % (0-3) Basophils (%) (Auto) 0 % (0-3) Neutrophils # (Auto) 23.4 x10^3uL (1.8-7.7) H Lymphocytes # (Auto) 0.8 x10^3/uL (1.0-4.8) L Monocytes # (Auto) 0.4 x10^3/uL (0.0-1.1) Eosinophils # (Auto) 0.1 x10^3/uL (0.0-0.7) Basophils # (Auto) 0.0 x10^3/uL (0.0-0.2) Platelet Estimate Pending Prothrombin Time 14.2 SEC (11.7-14.0) H Prothrombin Time INR 1.2 (0.8-1.1) H Laboratory Tests 10/01/16 07:23 EKG EKG EKG shows sinus tachycardia with a rate of [address] elevations, or T-wave inversions, left axis deviation, QTC 418 ms, as interpreted by me. Radiology/Procedures Radiology/Procedures [facility] [address] [place] [address] IMAGING REPORT Signed PATIENT: NORTH DESHPANDE ACCOUNT: [id number] : 1945 LOCATION: ER AGE: 71 SEX: M EXAM STATUS: REG ER ORD. PHYSICIAN: BALBIR NEELY MD REASON: Weakness PROCEDURE: PORTABLE CHEST 1V Chest radiograph 10/01/2016 at 0743 hours Indication: Weakness Comparison: Chest radiograph 07/27/2016 Technique: Single portable upright view of the chest is provided. Findings: A right chest wall infusion port catheter is identified with the distal tip projecting over the expected region of the cavoatrial junction. Cardiomediastinal silhouette is similar in appearance. There is new patchy airspace disease at the right lower lobe compatible with pneumonia in the appropriate clinical setting. Improved aeration of the left lung base. No significant pulmonary vascular congestion. No pleural effusions. No pneumothorax. No significant osseous abnormality. Impression: New right lower lobe airspace disease compatible with pneumonia in the appropriate clinical setting. Improved aeration of the left lung base with interval resolution of left basilar airspace disease. Critical results were discussed with Dr. Neely at 7:50 AM on 10/01/[address] Kay. DICTATED and SIGNED BY: KRISTIAN KAY MD DATE: 10/01/16 0748 CC: BALBIR NEELY MD; BUFFY ESPINOZA Jr, MD ~ Impressions: Sepsis Healthcare acquired pneumonia Esophageal cancer Course & Med Decision Making Course & Med Decision Making Pertinent Labs and Imaging studies reviewed. (See chart for details) Patient presents with a fever of 103, he does had a sport put in approximately week ago. We've drawn blood cultures from the port and peripheral. Chest x-ray shows pneumonia and since he's been hospitalized for partially 10 days to weeks ago will start Bank so some Levaquin for healthcare acquired pneumonia. 1 L of IV fluid has been initiated. Lactic acid is pending. Spoke with Dr. Antonio with ID and Dr. Menchaca with hospitalist. He is being admitted in stable condition at this time. Tylenol has been given for his fever. Patient and his family are agreeable to the plan and interim orders have been written. He does meet sepsis protocol since he is tachycardic, has a fever, has an elevated white blood cell count and a source of his infection. Sepsis protocol has been followed, his fluid requirement is 2,040 mls. He's been given 2 L normal saline and 125 an hour after that's been started. Completely stable for the floor. He is tachycardic but his heart rate started improved from 133 to114 with 1 L of fluids. Dragon Disclaimer Dragon Disclaimer This electronic medical record was generated, in whole or in part, using a voice recognition dictation system. Departure Departure Impression: Primary Impression: Sepsis Disposition: 09 ADMITTED INPATIENT Admitting Physician: Tex Menchaca Condition: STABLE Referrals: BUFFY ESPINOZA Jr, MD (PCP) Problem Qualifiers Primary Impression: Sepsis Sepsis type: sepsis due to unspecified organism Qualified Codes: A41.9 - Sepsis, unspecified organism BALBIR NEELY MD Oct 01, 2016 07:18
[2016-10-01] MEDS ORDERED: IV NORMAL SALINE 1000ML BAG 1,000 ML IV ONE ×2 (07:45→08:30)
[2016-10-01] MEDS ORDERED: ACETAMINOPHEN 500 MG TABLET PO ONE (07:45)
[2016-10-01] MEDS ORDERED: HEPARIN PF 500 UNIT/5 ML DISP.SYRIN. IV ONE (07:46)
[2016-10-01 07:47] LABS: BASO % 0 % (0-3); EOS % 0 % (0-3); HEMATOCRIT 39.2 % (39.0-53.0); LYMPH # 0.8 x10^3/uL (1.0-4.8); LYMPH % 3 % (24-48); MEAN CORPUSCULAR HEMOGLOBIN 29 pg (25-35); MEAN CORPUSCULAR HGB CONC 33 g/dL (31-37); MEAN CORPUSCULAR VOLUME 87 fL (79-100); MONO % 2 % (0-9); NEUT % 95 % (31-73); PLATELET COUNT 513 x10^3/uL (140-400); RED CELL DISTRIBUTION WIDTH 16.5 % (11.5-14.5); WHITE BLOOD COUNT 24.7 x10^3/uL (4.0-11.0)
[2016-10-01 07:53] LABS: INR 1.2 (0.8-1.1); PROTHROMBIN TIME PATIENT 14.2 SEC (11.7-14.0)
--- NOTE | 2016-10-01 07:54 | RAD ---
Chest radiograph 10/01/2016 at 0743 hours Indication: Weakness Comparison: Chest radiograph 07/27/2016 Technique: Single portable upright view of the chest is provided. Findings: A right chest wall infusion port catheter is identified with the distal tip projecting over the expected region of the cavoatrial junction. Cardiomediastinal silhouette is similar in appearance. There is new patchy airspace disease at the right lower lobe compatible with pneumonia in the appropriate clinical setting. Improved aeration of the left lung base. No significant pulmonary vascular congestion. No pleural effusions. No pneumothorax. No significant osseous abnormality. Impression: New right lower lobe airspace disease compatible with pneumonia in the appropriate clinical setting. Improved aeration of the left lung base with interval resolution of left basilar airspace disease. Critical results were discussed with Dr. Garza at 7:50 AM on 10/01/[address] Durbin.
[2016-10-01] MEDS ORDERED: levOFLOXacin PER PHARMACY. MC PRN (08:00)
[2016-10-01] MEDS ORDERED: VANCOMYCIN 1.75 GM in IV NORMAL SALINE 500ML BAG 500 ML IV ONE ×2 (08:15→09:00)
[2016-10-01] MEDS ORDERED: PIP/TAZO PER PHARMACY MC PRN (08:15)
[2016-10-01] MEDS ORDERED: PIPERACILLIN/TAZOBACTAM 4.5 GM in IV NORMAL SALINE 100ML 100 ML IV ONE (08:30)
[2016-10-01] MEDS ORDERED: ONDANSETRON PF 4 MG/2 ML VIAL. IV PRN ×2 (08:30→08:40)
--- NOTE | 2016-10-01 08:34 | EKG ---
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
[2016-10-01 08:37] LABS: CREATININE 0.8 mg/dL (0.7-1.3); GFR 95.6; POTASSIUM 4.3 mmol/L (3.5-5.1)
[2016-10-01] MEDS ORDERED: ACETAMINOPHEN 500 MG TABLET PO PRN (08:45)
[2016-10-01 08:51] LABS: ALBUMIN 2.6 g/dL (3.4-5.0); DIRECT BILIRUBIN 0.3 mg/dL (0.0-0.2); MAGNESIUM 1.6 mg/dL (1.8-2.4); TOTAL BILIRUBIN 0.6 mg/dL (0.2-1.0); TOTAL PROTEIN 6.5 g/dL (6.4-8.2)
[2016-10-01 08:53] LABS: CKMB MASS 0.5 ng/mL (0.0-3.6); CREATINE KINASE 25 U/L (39-308)
[2016-10-01] MEDS: LISINOPRIL 20 MG TABLET PO SCH (09:00)
[2016-10-01] MEDS ORDERED: ASPIRIN ENTERIC COATED 81 MG TABLET.DR. PO SCH (09:00)
[2016-10-01] MEDS ORDERED: [UNRECOGNIZED DRUG - OTHER] PO SCH (09:00)
[2016-10-01 10:21] LABS: PLT ESTIMATE INCREASED (ADEQUATE)
--- NOTE | 2016-10-01 10:29 | PDOC2 ---
DASIA VALDEZ GUN NUMBER 10/01/16 1029: Consult: Dr. Payne consulted 10/01/[address] Rodriges for pneumonia and fever. HPI: This is a pleasant 71 year old male who was recently diagnosed with recurrent esophageal cancer. He had developed weight loss and dysphagia and had undergone a EGD in which a strictured-mass at the distal esophagus was found. 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 A couple of weeks ago, he underwent J-tube placement for nutritional support followed by a port placement. He is followed by Dr. Johnson and was anticipating starting chemotherapy this coming Tuesday. Due to the esophageal blockage, patient explains that he often needs to clear his throat or cough up built up secretions. Denies any issue with the J-tube. Last night he felt fine before falling asleep in the recliner. About 3:30 or 4: 00 this morning he woke up with a hacking dry cough and chest congestion. Feeling too weak and dizzy to have his drive him to the ER, EMS was called. On arrival to ER, he had a temp of 103.1, [place] [address] and decrease SpO2 requiring O2 supplementation. Chest x-ray revealed new RLL airspace disease. He was dosed with vanc, Zosyn and Levaquin. Since admission, patient is feeling much better, still weak but less congested and cough. Denies fever, chills,aches or sweats prior to admission. Denies headaches, nasal /sinus congestion or sore throat. PMH: Esophageal adenocarcinoma s/p chemoradiation in 2012. hypertension, tonsillitis, gout PSH: J-tube placement, port placement, tonsillectomy. Prior PEG placement and removal as well as a previous port. SH: and lives at home. Former smoker. FH: Positive for cancer and heart attack ALL: NKDU MEDS: reviewed on MAY ROS: Per HPI, otherwise all other ROS are negative PHYSICAL EXAM GENERAL: male propped up in bed, relaxed appearance, NAD VSS: Afebrile, Tmax 103.1. Stable HENT: Pupils equally round. Wears eyeglasses. OP/OC pink, dry. NECK: Supple. No adenopathy LUNGS: RLL rhonchi, posteriorly. Nonlabored HEART: Normal S1 and S2 ABDOMEN: Nondistended, BS active, soft, nontender. Midline incision healing well. No signs of infection. J-tube intact. EXT: No edema or cyanosis. SKIN: without rash Right-sided port + bruising, incision well approx. LABS: Reviewed. WBC 24.7, Cr 0.8, lactic acid 1.3, BNP 293. Chest x-ray per HPI IMPRESSION 1. HCAP 2. Leukocytosis 3. Fever 4. s/p J-tube and port placement 5 . Recurrent esophageal cancer PLAN Continue vanc, Zosyn and Levaquin for now Add sputum culture Will modify antibiotics as additional information and cultures become available Monitor WBC count and temp. Thank you BRADY PAYNE MD 10/01/16 1623: Consult: Port and G- tube done at and was discharged last week without abx. D/w family. D/w ER earlier today Attending Co-Sign Attending Co-Sign The patient was seen and interviewed as well as examined at the bedside. The chart was reviewed. The case was discussed. Agree with the plan of care. DASIA VALDEZ APRN Oct 01, 2016 10:29 BRADY PAYNE MD Oct 01, 2016 16:23
[2016-10-01] MEDS ORDERED: ASPIRIN CHEWABLE 81 MG TABLET. PO SCH (10:45)
[2016-10-01 11:01] VITALS: BP 86/44
[2016-10-01 11:02] VITALS: BP 86/44
[2016-10-01] MEDS: COLCHICINE 0.6 MG TABLET PO SCH ×2 (11:26→13:35)
[2016-10-01] MEDS: ASPIRIN CHEWABLE 81 MG TABLET. PO SCH ×2 (11:26→13:35)
[2016-10-01 11:27] VITALS: BP 91/43
--- NOTE | 2016-10-01 12:33 | PDOC1 ---
History and Physical Date of Admission Date of Admission DATE: 10/01/16 TIME: 12:25 Identification/Chief Complaint Chief Complaint fever and chills, coughs Problems: Source Source: Caregiver, Chart review, Patient History of Present Illness History of Present Illness VEry pleasant 71 y.o male with good IADls, lives at home with , fever and chills this AM but started not feeling well few days ago, Coughing maybe for about a week now, clear, COuld not get up and drive today was so weak and almost fell. CAlled 911. EMS brought to [facility], CXR shows RUL PNA, WBC 20s, sinus tachy 130's Hx of esophageal CA dx 2013, has R lorenza cath and about to start IV chemo c/o dr Adam next week. NEver had pNA before, denies recent travel or sick contacts. STarted on borad spectrum with ID on board. LActate normal Getting IVF via sepsis protocol HAs indwelling PEG, strictly NPO from esoph CAncer has TF boluses at home Past Medical History Cardiovascular: HTN GI: Other Heme/Onc: Cancer Past Surgical History Past Surgical History: Tonsillectomy, Other Family History Family History: No Significant Social History Smoke: No ALCOHOL: none Drugs: None Current Problem List Problem List Problems Medical Problems: (1) Sepsis Status: Acute Problems: Current Medications Current Medications Current Medications Ondansetron HCl (Zofran) 4 mg 1X ONCE IV Last administered on 10/01/16 07:52 ; Start 10/01/16 at 07:15; Stop 10/01/16 at 07:18; Status DC Sodium Chloride 1,000 ml @ 1,000 mls/hr 1X ONCE IV Last administered on 07:52; Start 10/01/16 at 07:45; Stop 10/01/16 at 08:44; Status DC Acetaminophen (Tylenol) 1,000 mg 1X ONCE PO Last administered on 10/01/16 07: 52; Start 10/01/16 at 07:45; Stop 10/01/16 at 07:46; Status DC Vancomycin HCl (Vanco Per Pharmacy) 1 each PRN DAILY PRN MC SEE COMMENTS; Start 10/01/16 at 07:45 Heparin Sodium (Porcine) (Hep Lock Adult) 500 unit STK-MED ONCE IV ; Start 10/01 at 07:46; Stop 10/01/16 at 07:47; Status DC Levofloxacin/ Dextrose (Levaquin Per Pharmacy) 1 each PRN DAILY PRN MC SEE COMMENTS; Start 10/01/16 at 08:00 Levofloxacin/ Dextrose 150 ml @ 100 mls/hr 1X ONCE IV Last administered on 08:33; Start 10/01/16 at 08:00; Stop 10/01/16 at 09:29; Status DC Vancomycin HCl 1.75 gm/Sodium Chloride 500 ml @ 250 mls/hr 1X ONCE IV Last administered on 10/01/16 08:15; Start 10/01/16 at 08:15; Stop 10/01/16 at 10:14 ; Status DC Vancomycin HCl 1.75 gm/Sodium Chloride 500 ml @ 250 mls/hr 1X ONCE IV ; Start 10/01/16 at 09:00; Stop 10/01/16 at 10:59; Status Cancel Piperacillin Sod/ Tazobactam Sod (Zosyn Per Pharmacy) 1 each PRN DAILY PRN MC SEE COMMENTS; Start 10/01/16 at 08:15 Piperacillin Sod/ Tazobactam Sod 4.5 gm/Sodium Chloride 100 ml @ 200 mls/hr 1X ONCE IV ; Start 10/01/16 at 08:30; Stop 10/01/16 at 08:59; Status DC Ondansetron HCl (Zofran) 4 mg PRN Q8HRS PRN IV NAUSEA/VOMITING; Start 10/01/16 at 08:30; Stop 10/01/16 at 08:43; Status DC Sodium Chloride 1,000 ml @ 1,000 mls/hr 1X ONCE IV Last administered on 11:18; Start 10/01/16 at 08:30; Stop 10/01/16 at 09:29; Status DC Sodium Chloride 1,000 ml @ 125 mls/hr Q8H IV ; Start 10/01/16 at 08:30 Ondansetron HCl (Zofran) 4 mg PRN Q6HRS PRN IV NAUSEA/VOMITING; Start 10/01/16 at 08:40; Stop 10/02/16 at 08:39 Acetaminophen (Tylenol) 500 mg PRN Q6HRS PRN PO MILD PAIN / TEMP; Start at 08:45 Aspirin (Ecotrin) 81 mg DAILY PO ; Start 10/01/16 at 09:00; Stop 10/01/16 at 10: 49; Status DC Colchicine (Colcrys) 0.6 mg DAILY PO Last administered on 10/01/16 11:26; Start 10/01/16 at 09:00 Lisinopril (Prinivil) 20 mg DAILY PO ; Start 10/01/16 at 09:00 Non-Formulary Medication 1 each DAILY PO ; Start 10/01/16 at 09:00; Status UNV Levofloxacin/ Dextrose 150 ml @ 100 mls/hr Q24H IV ; Start 10/02/16 at 09:00 Piperacillin Sod/ Tazobactam Sod 4.5 gm/Sodium Chloride 100 ml @ 200 mls/hr Q6HRS IV ; Start 10/01/16 at 18:00 Aspirin (Children'S Aspirin) 81 mg DAILYWBKFT PO ; Start 10/01/16 at 10:45; Status UNV Aspirin (Children'S Aspirin) 81 mg DAILYWBKFT PO Last administered on 11:26; Start 10/01/16 at 11:00 Active Scripts Active Reported Aspir 81 (Aspirin) 81 Mg Tablet.dr 1 Tab PO DAILY Colchicine 0.6 Mg Tablet 0.6 Mg PO DAILY Glucosamine & Chondroitin Cap (Glucosa Meneses 2KCL/Chondroitin Meneses) 1 Each Capsule 1 Each PO DAILY Benazepril Hcl 10 Mg Tablet 20 Mg PO DAILY Allergies Allergies: Coded Allergies: No Known Drug Allergies (Unverified , 07/12/16) ROS General: YES: Chills, Fatigue, Malaise PSYCHOLOGICAL ROS: No: Anxiety, Behavioral Disorder, Concentration difficultie , Decreased libido, Depression, Disorientation, Hallucinations, Hostility, Irritablity, Memory difficulties, Mood Swings, Obsessive thoughts, Physical abuse, Sexual abuse, Sleep disturbances, Suicidal ideation, Other HEENT: No: Heacaches, Visual Changes, Hearing change, Nasal congestion, Nasal discharge, Oral lesions, Sinus pain, Sore Throat, Epistaxis, Sneezing, Snoring, Tinnitus, Vertigo, Vocal changes, Other ALLERGY AND IMMUNOLOGY: No: Hives, Insect Bite Sensitivity, Itchy/Watery Eyes, Nasal Congestion, Post Nasal Drip, Seasonal Allergies, Other Hematological and Lymphatic: No: Bleeding Problems, Blood Clots, Blood Transfusions, Brusing, Night Sweats, Pallor, Swollen Lymph Nodes, Other ENDOCRINE: No: Breast Changes, Galactorrhea, Hair Pattern Changes, Hot Flashes , Malaise/lethargy, Mood Swings, Palpitations, Polydipsia/polyuria, Skin Changes , Temperature Intolerance, Unexpected Weight Changes, Other Respiratory: YES: Cough, Shortness of breath, SOB with excertion, Sputum Changes Cardiovascular: No Chest Pain, No Palpitations, No Orthopnea, No Paroxysmal Noc. Dyspnea, No Edema, No Lt Headedness, No Other Gastrointestinal: No Nausea, No Vomiting, No Abdominal Pain, No Diarrhea, No Constipation, No Melena, No Hematochezia, No Other Musculoskeletal: No Gait Disturbance, No Joint Pain, No Joint Stiffness, No Joint Swelling, No Muscle Pain, No Muscular Weakness, No Pain In:, No Swelling In:, No Other Neurological: No Behavorial Changes, No Bowel/Bladder ControlChng, No Confusion , No Dizziness, No Gait Disturbance, No Headaches, No Impaired Coord/balance, No Memory Loss, No Numbness/Tingling, No Seizures, No Speech Problems, No Tremors, No Visual Changes, No Weakness, No Other Skin: No Dry Skin, No Eczema, No Hair Changes, No Lumps, No Mole Changes, No Mottling, No Nail Changes, No Pruritus, No Rash, No Skin Lesion Changes, No Other, No Acne Physical Exam General: Alert, Oriented X3, Cooperative, No acute distress HEENT: Atraumatic, PERRLA Lungs: Normal air movement, Other (dullness RUL, diminised R side, no wheezes) Cardiovascular: S1, S2 Breasts: Normal, Rt breast nml w/o mass, Lt breast nml w/o mass, Nipples normal Abdomen: Normal bowel sounds, Soft, No tenderness, No hepatosplenomegaly, No masses Male Genitals Exam: normal genitalia, normal prostate Rectal Exam: not examined PELVIC: Nml ext genitalia Extremities: No clubbing, No cyanosis, No edema, Normal pulses, No tenderness/ swelling Skin: No rashes, No breakdown, No significant lesion Neuro: Normal gait, Normal speech, Strength at 5/5 X4 ext, Normal tone, Sensation intact, Cranial nerves 3-12 NL, Reflexes 2+ Psych/Mental Status: Mental status NL, Mood NL Vitals Vitals Vital Signs Date Time Temp Pulse Resp B/P (MAP) Pulse Ox O2 Delivery O2 Flow Rate FiO2 10/01/16 11:27 93 91/43 (59) 10/01/16 11:02 98.5 20 95 Nasal Cannula 3.0 98.5 Labs Labs Laboratory Tests Test 10/01/16 07:23 10/01/16 08:10 10/01/16 10:05 White Blood Count 24.7 x10^3/uL (4.0-11.0) Red Blood Count 4.50 x10^6/uL (4.30-5.70) Hemoglobin 13.0 g/dL (13.0-17.5) Hematocrit 39.2 % (39.0-53.0) Mean Corpuscular Volume 87 fL (79-100) Mean Corpuscular Hemoglobin 29 pg (25-35) Mean Corpuscular Hemoglobin Concent 33 g/dL (31-37) Red Cell Distribution Width 16.5 % (11.5-14.5) Platelet Count 513 x10^3/uL (140-400) Neutrophils (%) (Auto) 95 % (31-73) Lymphocytes (%) (Auto) 3 % (24-48) Monocytes (%) (Auto) 2 % (0-9) Eosinophils (%) (Auto) 0 % (0-3) Basophils (%) (Auto) 0 % (0-3) Neutrophils # (Auto) 23.4 x10^3uL (1.8-7.7) Lymphocytes # (Auto) 0.8 x10^3/uL (1.0-4.8) Monocytes # (Auto) 0.4 x10^3/uL (0.0-1.1) Eosinophils # (Auto) 0.1 x10^3/uL (0.0-0.7) Basophils # (Auto) 0.0 x10^3/uL (0.0-0.2) Segmented Neutrophils % 92 % (35-66) Band Neutrophils % 6 % (0-9) Lymphocytes % 2 % (24-48) Platelet Estimate Increased (ADEQUATE) Prothrombin Time 14.2 SEC (11.7-14.0) Prothromb Time International Ratio 1.2 (0.8-1.1) Sodium Level 136 mmol/L (136-145) Potassium Level 4.3 mmol/L (3.5-5.1) Chloride Level 101 mmol/L (98-107) Carbon Dioxide Level 27 mmol/L (21-32) Anion Gap 8 (6-14) Blood Urea Nitrogen 23 mg/dL (8-26) Creatinine 0.8 mg/dL (0.7-1.3) Estimated GFR (Cockcroft-Gault) 95.6 Glucose Level 168 mg/dL (70-99) Lactic Acid Level 1.3 mmol/L (0.4-2.0) 1.0 mmol/L (0.4-2.0) Calcium Level 8.0 mg/dL (8.5-10.1) Magnesium Level 1.6 mg/dL (1.8-2.4) Total Bilirubin 0.6 mg/dL (0.2-1.0) Direct Bilirubin 0.3 mg/dL (0.0-0.2) Aspartate Amino Transf (AST/SGOT) 21 U/L (15-37) Alanine Aminotransferase (ALT/SGPT) 32 U/L (16-63) Alkaline Phosphatase 90 U/L (46-116) Creatine Kinase 25 U/L (39-308) Creatine Kinase MB (Mass) 0.5 ng/mL (0.0-3.6) Creatine Kinase MB Relative Index % (0-4) Troponin I Quantitative < 0.017 ng/mL (0.000-0.055) SO-Jyc-[id number]-Type Natriuretic Peptide 293 pg/mL (0-124) Total Protein 6.5 g/dL (6.4-8.2) Albumin 2.6 g/dL (3.4-5.0) Lipase 318 U/L (73-393) Thyroid Stimulating Hormone (TSH) 1.228 uIU/mL (0.358-3.74) Laboratory Tests Test 10/01/16 07:23 10/01/16 08:10 10/01/16 10:05 White Blood Count 24.7 x10^3/uL (4.0-11.0) Red Blood Count 4.50 x10^6/uL (4.30-5.70) Hemoglobin 13.0 g/dL (13.0-17.5) Hematocrit 39.2 % (39.0-53.0) Mean Corpuscular Volume 87 fL (79-100) Mean Corpuscular Hemoglobin 29 pg (25-35) Mean Corpuscular Hemoglobin Concent 33 g/dL (31-37) Red Cell Distribution Width 16.5 % (11.5-14.5) Platelet Count 513 x10^3/uL (140-400) Neutrophils (%) (Auto) 95 % (31-73) Lymphocytes (%) (Auto) 3 % (24-48) Monocytes (%) (Auto) 2 % (0-9) Eosinophils (%) (Auto) 0 % (0-3) Basophils (%) (Auto) 0 % (0-3) Neutrophils # (Auto) 23.4 x10^3uL (1.8-7.7) Lymphocytes # (Auto) 0.8 x10^3/uL (1.0-4.8) Monocytes # (Auto) 0.4 x10^3/uL (0.0-1.1) Eosinophils # (Auto) 0.1 x10^3/uL (0.0-0.7) Basophils # (Auto) 0.0 x10^3/uL (0.0-0.2) Segmented Neutrophils % 92 % (35-66) Band Neutrophils % 6 % (0-9) Lymphocytes % 2 % (24-48) Platelet Estimate Increased (ADEQUATE) Prothrombin Time 14.2 SEC (11.7-14.0) Prothromb Time International Ratio 1.2 (0.8-1.1) Sodium Level 136 mmol/L (136-145) Potassium Level 4.3 mmol/L (3.5-5.1) Chloride Level 101 mmol/L (98-107) Carbon Dioxide Level 27 mmol/L (21-32) Anion Gap 8 (6-14) Blood Urea Nitrogen 23 mg/dL (8-26) Creatinine 0.8 mg/dL (0.7-1.3) Estimated GFR (Cockcroft-Gault) 95.6 Glucose Level 168 mg/dL (70-99) Lactic Acid Level 1.3 mmol/L (0.4-2.0) 1.0 mmol/L (0.4-2.0) Calcium Level 8.0 mg/dL (8.5-10.1) Magnesium Level 1.6 mg/dL (1.8-2.4) Total Bilirubin 0.6 mg/dL (0.2-1.0) Direct Bilirubin 0.3 mg/dL (0.0-0.2) Aspartate Amino Transf (AST/SGOT) 21 U/L (15-37) Alanine Aminotransferase (ALT/SGPT) 32 U/L (16-63) Alkaline Phosphatase 90 U/L (46-116) Creatine Kinase 25 U/L (39-308) Creatine Kinase MB (Mass) 0.5 ng/mL (0.0-3.6) Creatine Kinase MB Relative Index % (0-4) Troponin I Quantitative < 0.017 ng/mL (0.000-0.055) SQ-Tgr-L-Type Natriuretic Peptide 293 pg/mL (0-124) Total Protein 6.5 g/dL (6.4-8.2) Albumin 2.6 g/dL (3.4-5.0) Lipase 318 U/L (73-393) Thyroid Stimulating Hormone (TSH) 1.228 uIU/mL (0.358-3.74) VTE Prophylaxis Ordered VTE Prophylaxis Devices: Yes VTE Pharmacological Prophylaxi: Yes Assessment/Plan Assessment/Plan 1. RUL PNA in an immunocompromised 2. Sepsis POA (tachy, WBC 20s) without target organ damage 3. Esophageal CA with indwelling PEG 4. MIld pCM 5. ARF unspecified PLAn: Admit Broad spectrum Follow BC COnsult ID PT/OT NUtrition consult for TF DVT prophy in this cancer pt IVF per sepsis protocol Recheck labs pattie hoff pt and RN DWIGHT RODRIGUEZ MD Oct 01, 2016 12:33
[2016-10-01] MEDS: ENOXAPARIN 40 MG/0.4 ML SYRINGE. SQ SCH (13:00)
[2016-10-01] MEDS: IV NORMAL SALINE 1000ML BAG 1,000 ML IV SCH ×3 (13:36→23:47)
[2016-10-01] MEDS: VANCOMYCIN PER PHARMACY MC PRN (13:52)
[2016-10-01 15:01] VITALS: BP 160/70
[2016-10-01] MEDS: PIPERACILLIN/TAZOBACTAM 4.5 GM in IV NORMAL SALINE 100ML 100 ML IV SCH ×2 (18:24→23:45)
[2016-10-01 19:15] VITALS: BP 104/61
[2016-10-01] MEDS: VANCOMYCIN 1 GM in IV NORMAL SALINE 250ML 250 ML IV SCH (20:56)
[2016-10-01 23:15] VITALS: BP 105/54
[2016-10-02 03:36] VITALS: BP 99/60
[2016-10-02 04:38] LABS: BASO % 0 % (0-3); EOS % 1 % (0-3); LYMPH # 1.1 x10^3/uL (1.0-4.8); LYMPH % 5 % (24-48); MEAN CORPUSCULAR HEMOGLOBIN 29 pg (25-35); MEAN CORPUSCULAR HGB CONC 33 g/dL (31-37); MEAN CORPUSCULAR VOLUME 88 fL (79-100); MONO % 6 % (0-9); NEUT % 88 % (31-73); PLATELET COUNT 329 x10^3/uL (140-400); RED BLOOD COUNT 3.43 x10^6/uL (4.30-5.70); WHITE BLOOD COUNT 22.8 x10^3/uL (4.0-11.0)
[2016-10-02 04:57] LABS: CALCIUM 8.2 mg/dL (8.5-10.1); GFR 73.9; POTASSIUM 4.4 mmol/L (3.5-5.1)
--- NOTE | 2016-10-02 05:09 | ACF ---
Admit Criteria Forms Admit Criteria Forms Admit Criteria Forms SEPSIS and OTHER FEBRILE ILLNESS, W/O FOCAL INFECTION Clinical Indications for Admission to Inpatient Care ( Place 'X' for any and all applicable criteria): Admission is indicated for ANY ONE of the following (1)(2)(3)(4): [ ] I. Bacteremia [X]II. Suspected or identified specific infection requiring hospitalization (eg, meningitis, endocarditis) [ ]III. Hemodynamic instability [ ]IV. Altered mental status [ ]V. Failure or unavailability of outpatient antimicrobial treatment [ ]. Hypoxemia [ ]VII. Seizures [ ]VIII. High-risk febrile neutropenia [ ]IX. Need for parenteral antibiotic in patient who is likely to abuse vascular access device (eg, injection drug user) [A](7) [ ]X. Temperature greater than 104.9 degrees F (40.5 degrees C) (oral) [ ]XI. Inpatient admission required rather than observation care because of ANY ONE of the following: [ ]1) Specific infection identified that is too severe for outpatient treatment or observation care trial [ ]2) Metabolic disorder (eg, hypoglycemia, hyperglycemia, metabolic acidosis) that is severe or persistent [ ]3) Temperature greater than 103.1 degrees F (39.5 degrees C) ( oral) that is not responsive to observation care treatment [ ]4) IV fluid to replace significant ongoing (eg, for over 24 hours) losses (> 3 L/m2 per day) [ ]5) Supplemental oxygen or respiratory treatments for over 24 hours that is performable only in acute inpatient setting [ ]6) Parenteral nutrition regimen need that must be implemented on inpatient basis [ ]7) Strict or protective (eg, laminar flow) isolation [ ]8) Other condition, treatment or monitoring requiring inpatient admission Extended stay beyond goal length of stay may be needed for(1)(3) [ ]a) Sepsis or septic shock(22) [ ]b) Positive blood cultures [ ]c) Insufficient oral intake [ ]d) High-risk febrile neutropenia(29)(30) [ ]e) Continued fever and clinical instability [ ]f) Clinically active comorbid illness (e.g,heart failure, renal failure , diabetes) The original [employer] content created by [employer] has been revised. The portions of the content which have been revised are identified through the use of italic text or in bold, and [facility] has neither reviewed nor approved the modified material. All other unmodified content is copyright [facility]. Please see references footnoted in the original [facility] edition 2016 STEFANI SANCHES Oct 02, 2016 05:09
[2016-10-02] MEDS: PIPERACILLIN/TAZOBACTAM 4.5 GM in IV NORMAL SALINE 100ML 100 ML IV SCH ×3 (06:28→17:26)
[2016-10-02 07:00] VITALS: BP 114/72
--- NOTE | 2016-10-02 07:05 | PDOC ---
Infectious Disease Note Subjective Subjective Some better. No Fever Less cough and sputum ROS ROS GEN: Denies fevers, chills, sweats HEENT: Denies blurred vision, sore throat CV: Denies chest pain RESP: Denies shortness of air, cough GI: Denies n/v/d NEURO: Denies confusion, dizziness MSK: Denies weakness, joint pain/swelling Vital Sign Vital Signs Vital Signs Date Time Temp Pulse Resp B/P (MAP) Pulse Ox O2 Delivery O2 Flow Rate FiO2 10/02/16 03:36 97.5 76 18 99/60 (73) 93 Room Air 97.5 10/01/16 15:01 3.0 Physical Exam PHYSICAL EXAM GENERAL: NAD, Alert, coop HEENT: PERRL, OC/OP- clear NECK: Supple, no JVD, no LN LUNGS: Clear HEART: S1S2, no gallop, no murmur ABD: Soft, NT, no organomegaly, no rebound, PEG - clean EXT: No edema, no cyanosis [employer]: Alert, oriented x 3, no focal neurologic deficit SKIN: No rash IV: Port right chest - bruised but clean Labs Lab Laboratory Tests Test 10/01/16 07:23 10/01/16 08:10 10/01/16 10:05 10/02/16 04:02 White Blood Count 24.7 x10^3/uL (4.0-11.0) 22.8 x10^3/uL (4.0-11.0) Red Blood Count 4.50 x10^6/uL (4.30-5.70) 3.43 x10^6/uL (4.30-5.70) Hemoglobin 13.0 g/dL (13.0-17.5) 10.0 g/dL (13.0-17.5) Hematocrit 39.2 % (39.0-53.0) 30.0 % (39.0-53.0) Mean Corpuscular Volume 87 fL (79-100) 88 fL (79-100) Mean Corpuscular Hemoglobin 29 pg (25-35) 29 pg (25-35) Mean Corpuscular Hemoglobin Concent 33 g/dL (31-37) 33 g/dL (31-37) Red Cell Distribution Width 16.5 % (11.5-14.5) 16.0 % (11.5-14.5) Platelet Count 513 x10^3/uL (140-400) 329 x10^3/uL (140-400) Neutrophils (%) (Auto) 95 % (31-73) 88 % (31-73) Lymphocytes (%) (Auto) 3 % (24-48) 5 % (24-48) Monocytes (%) (Auto) 2 % (0-9) 6 % (0-9) Eosinophils (%) (Auto) 0 % (0-3) 1 % (0-3) Basophils (%) (Auto) 0 % (0-3) 0 % (0-3) Neutrophils # (Auto) 23.4 x10^3uL (1.8-7.7) 20.1 x10^3uL (1.8-7.7) Lymphocytes # (Auto) 0.8 x10^3/uL (1.0-4.8) 1.1 x10^3/uL (1.0-4.8) Monocytes # (Auto) 0.4 x10^3/uL (0.0-1.1) 1.4 x10^3/uL (0.0-1.1) Eosinophils # (Auto) 0.1 x10^3/uL (0.0-0.7) 0.1 x10^3/uL (0.0-0.7) Basophils # (Auto) 0.0 x10^3/uL (0.0-0.2) 0.0 x10^3/uL (0.0-0.2) Segmented Neutrophils % 92 % (35-66) Band Neutrophils % 6 % (0-9) Lymphocytes % 2 % (24-48) Platelet Estimate Increased (ADEQUATE) Prothrombin Time 14.2 SEC (11.7-14.0) Prothromb Time International Ratio 1.2 (0.8-1.1) Sodium Level 136 mmol/L (136-145) 141 mmol/L (136-145) Potassium Level 4.3 mmol/L (3.5-5.1) 4.4 mmol/L (3.5-5.1) Chloride Level 101 mmol/L (98-107) 106 mmol/L (98-107) Carbon Dioxide Level 27 mmol/L (21-32) 28 mmol/L (21-32) Anion Gap 8 (6-14) 7 (6-14) Blood Urea Nitrogen 23 mg/dL (8-26) 19 mg/dL (8-26) Creatinine 0.8 mg/dL (0.7-1.3) 1.0 mg/dL (0.7-1.3) Estimated GFR (Cockcroft-Gault) 95.6 73.9 Glucose Level 168 mg/dL (70-99) 100 mg/dL (70-99) Lactic Acid Level 1.3 mmol/L (0.4-2.0) 1.0 mmol/L (0.4-2.0) Calcium Level 8.0 mg/dL (8.5-10.1) 8.2 mg/dL (8.5-10.1) Magnesium Level 1.6 mg/dL (1.8-2.4) Total Bilirubin 0.6 mg/dL (0.2-1.0) Direct Bilirubin 0.3 mg/dL (0.0-0.2) Aspartate Amino Transf (AST/SGOT) 21 U/L (15-37) Alanine Aminotransferase (ALT/SGPT) 32 U/L (16-63) Alkaline Phosphatase 90 U/L (46-116) Creatine Kinase 25 U/L (39-308) Creatine Kinase MB (Mass) 0.5 ng/mL (0.0-3.6) Creatine Kinase MB Relative Index % (0-4) Troponin I Quantitative < 0.017 ng/mL (0.000-0.055) YU-Nqh-O-Type Natriuretic Peptide 293 pg/mL (0-124) Total Protein 6.5 g/dL (6.4-8.2) Albumin 2.6 g/dL (3.4-5.0) Lipase 318 U/L (73-393) Thyroid Stimulating Hormone (TSH) 1.228 uIU/mL (0.358-3.74) Objective Assessment 1. HCAP - right 2. Leukocytosis 3. Fever 4. s/p J-tube and port placement 5 . Recurrent esophageal cancer Plan Plan of Care Continue vanc, Zosyn and Levaquin for now F/u sputum culture/blood cults Will modify antibiotics as additional information and cultures become available Monitor WBC count and temp BRADY KIM MD Oct 02, 2016 07:05
[2016-10-02] MEDS: VANCOMYCIN 1 GM in IV NORMAL SALINE 250ML 250 ML IV SCH ×2 (08:08→20:00)
[2016-10-02] MEDS: IV NORMAL SALINE 1000ML BAG 1,000 ML IV SCH ×2 (08:09→21:14)
[2016-10-02] MEDS: ASPIRIN CHEWABLE 81 MG TABLET. PO SCH (08:10)
[2016-10-02] MEDS: LISINOPRIL 20 MG TABLET PO SCH (08:10)
[2016-10-02] MEDS: COLCHICINE 0.6 MG TABLET PO SCH (08:11)
[2016-10-02 11:00] VITALS: BP 121/70
[2016-10-02] MEDS: ENOXAPARIN 40 MG/0.4 ML SYRINGE. SQ SCH (11:50)
--- NOTE | 2016-10-02 13:31 | PDOC ---
PROGRESS NOTES Chief Complaint Chief Complaint 1. RUL PNA in an immunocompromised 2. Sepsis POA (tachy, WBC 20s) without target organ damage 3. Esophageal CA with indwelling PEG 4. MIld pCM 5. ARF unspecified, resolved History of Present Illness History of Present Illness DOing well Looks good NO fevers WBC 22 from 24 Going freq in the restroom to void Getting the TF at goal (boluses similar to home regimen) PLAn: Dec IVF rate to 80cc/hr Follow ID recs CBC pattie Broad spectrum for now Follow cx Dw pt and family at bedside Vitals Vitals Vital Signs Date Time Temp Pulse Resp B/P (MAP) Pulse Ox O2 Delivery O2 Flow Rate FiO2 10/02/16 11:00 98.4 89 16 121/70 (87) 97 Room Air 98.4 10/02/16 07:00 3.0 Physical Exam General: Alert, Oriented X3, Cooperative, No acute distress Lungs: Clear Abdomen: Normal bowel sounds, Soft, No tenderness, No hepatosplenomegaly, No masses Extremities: No clubbing, No cyanosis, No edema, Normal pulses, No tenderness/ swelling Skin: No rashes, No breakdown, No significant lesion Labs LABS Laboratory Tests Test 10/02/16 04:02 White Blood Count 22.8 x10^3/uL (4.0-11.0) Red Blood Count 3.43 x10^6/uL (4.30-5.70) Hemoglobin 10.0 g/dL (13.0-17.5) Hematocrit 30.0 % (39.0-53.0) Mean Corpuscular Volume 88 fL (79-100) Mean Corpuscular Hemoglobin 29 pg (25-35) Mean Corpuscular Hemoglobin Concent 33 g/dL (31-37) Red Cell Distribution Width 16.0 % (11.5-14.5) Platelet Count 329 x10^3/uL (140-400) Neutrophils (%) (Auto) 88 % (31-73) Lymphocytes (%) (Auto) 5 % (24-48) Monocytes (%) (Auto) 6 % (0-9) Eosinophils (%) (Auto) 1 % (0-3) Basophils (%) (Auto) 0 % (0-3) Neutrophils # (Auto) 20.1 x10^3uL (1.8-7.7) Lymphocytes # (Auto) 1.1 x10^3/uL (1.0-4.8) Monocytes # (Auto) 1.4 x10^3/uL (0.0-1.1) Eosinophils # (Auto) 0.1 x10^3/uL (0.0-0.7) Basophils # (Auto) 0.0 x10^3/uL (0.0-0.2) Sodium Level 141 mmol/L (136-145) Potassium Level 4.4 mmol/L (3.5-5.1) Chloride Level 106 mmol/L (98-107) Carbon Dioxide Level 28 mmol/L (21-32) Anion Gap 7 (6-14) Blood Urea Nitrogen 19 mg/dL (8-26) Creatinine 1.0 mg/dL (0.7-1.3) Estimated GFR (Cockcroft-Gault) 73.9 Glucose Level 100 mg/dL (70-99) Calcium Level 8.2 mg/dL (8.5-10.1) Review of Systems Review of Systems denies all 14 pt reviewed Assessment and Plan Assessmemt and Plan Problems Medical Problems: (1) Sepsis Status: Acute Problems: Comment Review of Relevant I have reviewed the following items skyler (where applicable) has been applied. Labs Laboratory Tests Test 10/01/16 07:23 10/01/16 08:10 10/01/16 10:05 10/02/16 04:02 White Blood Count 24.7 x10^3/uL (4.0-11.0) 22.8 x10^3/uL (4.0-11.0) Red Blood Count 4.50 x10^6/uL (4.30-5.70) 3.43 x10^6/uL (4.30-5.70) Hemoglobin 13.0 g/dL (13.0-17.5) 10.0 g/dL (13.0-17.5) Hematocrit 39.2 % (39.0-53.0) 30.0 % (39.0-53.0) Mean Corpuscular Volume 87 fL (79-100) 88 fL (79-100) Mean Corpuscular Hemoglobin 29 pg (25-35) 29 pg (25-35) Mean Corpuscular Hemoglobin Concent 33 g/dL (31-37) 33 g/dL (31-37) Red Cell Distribution Width 16.5 % (11.5-14.5) 16.0 % (11.5-14.5) Platelet Count 513 x10^3/uL (140-400) 329 x10^3/uL (140-400) Neutrophils (%) (Auto) 95 % (31-73) 88 % (31-73) Lymphocytes (%) (Auto) 3 % (24-48) 5 % (24-48) Monocytes (%) (Auto) 2 % (0-9) 6 % (0-9) Eosinophils (%) (Auto) 0 % (0-3) 1 % (0-3) Basophils (%) (Auto) 0 % (0-3) 0 % (0-3) Neutrophils # (Auto) 23.4 x10^3uL (1.8-7.7) 20.1 x10^3uL (1.8-7.7) Lymphocytes # (Auto) 0.8 x10^3/uL (1.0-4.8) 1.1 x10^3/uL (1.0-4.8) Monocytes # (Auto) 0.4 x10^3/uL (0.0-1.1) 1.4 x10^3/uL (0.0-1.1) Eosinophils # (Auto) 0.1 x10^3/uL (0.0-0.7) 0.1 x10^3/uL (0.0-0.7) Basophils # (Auto) 0.0 x10^3/uL (0.0-0.2) 0.0 x10^3/uL (0.0-0.2) Segmented Neutrophils % 92 % (35-66) Band Neutrophils % 6 % (0-9) Lymphocytes % 2 % (24-48) Platelet Estimate Increased (ADEQUATE) Prothrombin Time 14.2 SEC (11.7-14.0) Prothromb Time International Ratio 1.2 (0.8-1.1) Sodium Level 136 mmol/L (136-145) 141 mmol/L (136-145) Potassium Level 4.3 mmol/L (3.5-5.1) 4.4 mmol/L (3.5-5.1) Chloride Level 101 mmol/L (98-107) 106 mmol/L (98-107) Carbon Dioxide Level 27 mmol/L (21-32) 28 mmol/L (21-32) Anion Gap 8 (6-14) 7 (6-14) Blood Urea Nitrogen 23 mg/dL (8-26) 19 mg/dL (8-26) Creatinine 0.8 mg/dL (0.7-1.3) 1.0 mg/dL (0.7-1.3) Estimated GFR (Cockcroft-Gault) 95.6 73.9 Glucose Level 168 mg/dL (70-99) 100 mg/dL (70-99) Lactic Acid Level 1.3 mmol/L (0.4-2.0) 1.0 mmol/L (0.4-2.0) Calcium Level 8.0 mg/dL (8.5-10.1) 8.2 mg/dL (8.5-10.1) Magnesium Level 1.6 mg/dL (1.8-2.4) Total Bilirubin 0.6 mg/dL (0.2-1.0) Direct Bilirubin 0.3 mg/dL (0.0-0.2) Aspartate Amino Transf (AST/SGOT) 21 U/L (15-37) Alanine Aminotransferase (ALT/SGPT) 32 U/L (16-63) Alkaline Phosphatase 90 U/L (46-116) Creatine Kinase 25 U/L (39-308) Creatine Kinase MB (Mass) 0.5 ng/mL (0.0-3.6) Creatine Kinase MB Relative Index % (0-4) Troponin I Quantitative < 0.017 ng/mL (0.000-0.055) [id number] Natriuretic Peptide 293 pg/mL (0-124) Total Protein 6.5 g/dL (6.4-8.2) Albumin 2.6 g/dL (3.4-5.0) Lipase 318 U/L (73-393) Thyroid Stimulating Hormone (TSH) 1.228 uIU/mL (0.358-3.74) Laboratory Tests Test 10/02/16 04:02 White Blood Count 22.8 x10^3/uL (4.0-11.0) Red Blood Count 3.43 x10^6/uL (4.30-5.70) Hemoglobin 10.0 g/dL (13.0-17.5) Hematocrit 30.0 % (39.0-53.0) Mean Corpuscular Volume 88 fL (79-100) Mean Corpuscular Hemoglobin 29 pg (25-35) Mean Corpuscular Hemoglobin Concent 33 g/dL (31-37) Red Cell Distribution Width 16.0 % (11.5-14.5) Platelet Count 329 x10^3/uL (140-400) Neutrophils (%) (Auto) 88 % (31-73) Lymphocytes (%) (Auto) 5 % (24-48) Monocytes (%) (Auto) 6 % (0-9) Eosinophils (%) (Auto) 1 % (0-3) Basophils (%) (Auto) 0 % (0-3) Neutrophils # (Auto) 20.1 x10^3uL (1.8-7.7) Lymphocytes # (Auto) 1.1 x10^3/uL (1.0-4.8) Monocytes # (Auto) 1.4 x10^3/uL (0.0-1.1) Eosinophils # (Auto) 0.1 x10^3/uL (0.0-0.7) Basophils # (Auto) 0.0 x10^3/uL (0.0-0.2) Sodium Level 141 mmol/L (136-145) Potassium Level 4.4 mmol/L (3.5-5.1) Chloride Level 106 mmol/L (98-107) Carbon Dioxide Level 28 mmol/L (21-32) Anion Gap 7 (6-14) Blood Urea Nitrogen 19 mg/dL (8-26) Creatinine 1.0 mg/dL (0.7-1.3) Estimated GFR (Cockcroft-Gault) 73.9 Glucose Level 100 mg/dL (70-99) Calcium Level 8.2 mg/dL (8.5-10.1) Microbiology 10/01/16 Blood Culture - Preliminary, Resulted NO GROWTH AFTER 1 DAY 10/01/16 Gram Stain - Final, Complete Medications Current Medications Ondansetron HCl (Zofran) 4 mg 1X ONCE IV Last administered on 10/01/16t 07:52 ; Start 10/01/16 at 07:15; Stop 10/01/16 at 07:18; Status DC Sodium Chloride 1,000 ml @ 1,000 mls/hr 1X ONCE IV Last administered on 07:52; Start 10/01/16 at 07:45; Stop 10/01/16 at 08:44; Status DC Acetaminophen (Tylenol) 1,000 mg 1X ONCE PO Last administered on 10/01/16 07: 52; Start 10/01/16 at 07:45; Stop 10/01/16 at 07:46; Status DC Vancomycin HCl (Vanco Per Pharmacy) 1 each PRN DAILY PRN MC SEE COMMENTS Last administered on 10/01/16 13:52; Start 10/01/16 at 07:45 Heparin Sodium (Porcine) (Hep Lock Adult) 500 unit STK-MED ONCE IV ; Start 10/01 at 07:46; Stop 10/01/16 at 07:47; Status DC Levofloxacin/ Dextrose (Levaquin Per Pharmacy) 1 each PRN DAILY PRN MC SEE COMMENTS; Start 10/01/16 at 08:00 Levofloxacin/ Dextrose 150 ml @ 100 mls/hr 1X ONCE IV Last administered on 08:33; Start 10/01/16 at 08:00; Stop 10/01/16 at 09:29; Status DC Vancomycin HCl 1.75 gm/Sodium Chloride 500 ml @ 250 mls/hr 1X ONCE IV Last administered on 10/01/16 08:15; Start 10/01/16 at 08:15; Stop 10/01/16 at 10:14 ; Status DC Vancomycin HCl 1.75 gm/Sodium Chloride 500 ml @ 250 mls/hr 1X ONCE IV ; Start 10/01/16 at 09:00; Stop 10/01/16 at 10:59; Status Cancel Piperacillin Sod/ Tazobactam Sod (Zosyn Per Pharmacy) 1 each PRN DAILY PRN MC SEE COMMENTS; Start 10/01/16 at 08:15 Piperacillin Sod/ Tazobactam Sod 4.5 gm/Sodium Chloride 100 ml @ 200 mls/hr 1X ONCE IV Last administered on 10/01/16 13:36; Start 10/01/16 at 08:30; Stop 10/01/16 at 08:59; Status DC Ondansetron HCl (Zofran) 4 mg PRN Q8HRS PRN IV NAUSEA/VOMITING; Start 10/01/16 at 08:30; Stop 10/01/16 at 08:43; Status DC Sodium Chloride 1,000 ml @ 1,000 mls/hr 1X ONCE IV Last administered on 11:18; Start 10/01/16 at 08:30; Stop 10/01/16 at 09:29; Status DC Sodium Chloride 1,000 ml @ 125 mls/hr Q8H IV Last administered on 10/02/16 08 :09; Start 10/01/16 at 08:30 Ondansetron HCl (Zofran) 4 mg PRN Q6HRS PRN IV NAUSEA/VOMITING; Start 10/01/16 at 08:40; Stop 10/02/16 at 08:39; Status DC Acetaminophen (Tylenol) 500 mg PRN Q6HRS PRN PO MILD PAIN / TEMP; Start at 08:45 Aspirin (Ecotrin) 81 mg DAILY PO ; Start 10/01/16 at 09:00; Stop 10/01/16 at 10: 49; Status DC Colchicine (Colcrys) 0.6 mg DAILY PO Last administered on 10/02/16 08:11; Start 10/01/16 at 09:00 Lisinopril (Prinivil) 20 mg DAILY PO Last administered on 10/02/16 08:10; Start 10/01/16 at 09:00 Non-Formulary Medication 1 each DAILY PO ; Start 10/01/16 at 09:00; Status UNV Levofloxacin/ Dextrose 150 ml @ 100 mls/hr Q24H IV Last administered on 09:39; Start 10/02/16 at 09:00 Piperacillin Sod/ Tazobactam Sod 4.5 gm/Sodium Chloride 100 ml @ 200 mls/hr Q6HRS IV Last administered on 10/02/16 11:50; Start 10/01/16 at 18:00 Aspirin (Children'S Aspirin) 81 mg DAILYWBKFT PO ; Start 10/01/16 at 10:45; Status UNV Aspirin (Children'S Aspirin) 81 mg DAILYWBKFT PO Last administered on 08:10; Start 10/01/16 at 11:00 Enoxaparin Sodium (Lovenox 40mg Syringe) 40 mg Q24H SQ ; Start 10/01/16 at 13:00 Vancomycin HCl 1 gm/Sodium Chloride 250 ml @ 250 mls/hr Q12H IV Last administered on 10/02/16t 08:08; Start 10/01/16 at 20:00 Vancomycin HCl 1 each 1X ONCE MC ; Start 10/02/16 at 19:30; Stop 10/02/16 at 19 :31 Active Scripts Active Reported Aspir 81 (Aspirin) 81 Mg Tablet.dr 1 Tab PO DAILY Colchicine 0.6 Mg Tablet 0.6 Mg PO DAILY Glucosamine & Chondroitin Cap (Glucosa Meneses 2KCL/Chondroitin Meneses) 1 Each Capsule 1 Each PO DAILY Benazepril Hcl 10 Mg Tablet 20 Mg PO DAILY Vitals/I & O Vital Sign - Last 24 Hours 10/01/16 10/01/16 10/01/16 10/01/16 15:01 16:23 19:15 20:00 Temp 97.5 98.6 97.5 98.6 Pulse 99 86 Resp 19 18 B/P (MAP) 160/70 (100) 104/61 (75) Pulse Ox 95 93 O2 Delivery Nasal Cannula Room Air Room Air Room Air O2 Flow Rate 3.0 10/01/16 10/02/16 10/02/16 10/02/16 23:15 03:36 07:00 08:00 Temp 99.0 97.5 98.6 99.0 97.5 98.6 Pulse 91 76 76 Resp 18 18 16 B/P (MAP) 105/54 (71) 99/60 (73) 114/72 (86) Pulse Ox 92 93 97 O2 Delivery Room Air Room Air Nasal Cannula Room Air O2 Flow Rate 3.0 10/02/16 10/02/16 08:10 11:00 Temp 98.4 98.4 Pulse 76 89 Resp 16 B/P (MAP) 114/72 121/70 (87) Pulse Ox 97 O2 Delivery Room Air Intake and Output 10/01/16 10/01/16 10/02/16 15:00 23:00 07:00 Intake Total 650 ml 200 ml Output Total 350 ml Balance 650 ml -150 ml DWIGHT RODRIGUEZ MD Oct 02, 2016 13:31
[2016-10-02 15:00] VITALS: BP 126/72
[2016-10-02] MEDS: LOPERAMIDE 2 MG/10 ML ORAL SOLUTION. PEG PRN ×3 (17:25→21:19)
[2016-10-02 19:59] VITALS: BP 127/74
[2016-10-02] MEDS: VANCOMYCIN PER PHARMACY MC PRN (20:48)
[2016-10-02] MEDS: VANCOMYCIN 1.5 GM in IV NORMAL SALINE 500ML BAG 500 ML IV SCH (21:13)
[2016-10-02 23:56] VITALS: BP 127/81
[2016-10-03] VITALS (7 sets, daily range): BP systolic 114–141; BP diastolic 53–85
[2016-10-03] MEDS: PIPERACILLIN/TAZOBACTAM 4.5 GM in IV NORMAL SALINE 100ML 100 ML IV SCH ×4 (00:03→17:05)
[2016-10-03] MEDS: LOPERAMIDE 2 MG/10 ML ORAL SOLUTION. PEG PRN ×2 (04:10→12:31)
[2016-10-03 05:38] LABS: BASO # 0.1 x10^3/uL (0.0-0.2); BASO % 0 % (0-3); EOS % 0 % (0-3); HEMATOCRIT 28.2 % (39.0-53.0); HEMOGLOBIN 9.5 g/dL (13.0-17.5); LYMPH # 0.5 x10^3/uL (1.0-4.8); LYMPH % 3 % (24-48); MEAN CORPUSCULAR HEMOGLOBIN 29 pg (25-35); MEAN CORPUSCULAR HGB CONC 34 g/dL (31-37); MEAN CORPUSCULAR VOLUME 86 fL (79-100); MONO % 6 % (0-9); NEUT % 90 % (31-73); PLATELET COUNT 307 x10^3/uL (140-400); RED BLOOD COUNT 3.27 x10^6/uL (4.30-5.70); RED CELL DISTRIBUTION WIDTH 16.2 % (11.5-14.5); WHITE BLOOD COUNT 21.4 x10^3/uL (4.0-11.0)
[2016-10-03 05:52] LABS: CALCIUM 8.3 mg/dL (8.5-10.1); CREATININE 0.8 mg/dL (0.7-1.3); GFR 95.6; POTASSIUM 3.5 mmol/L (3.5-5.1)
[2016-10-03] MEDS: COLCHICINE 0.6 MG TABLET PO SCH (08:23)
[2016-10-03] MEDS: ASPIRIN CHEWABLE 81 MG TABLET. PO SCH (08:23)
[2016-10-03] MEDS: LISINOPRIL 20 MG TABLET PO SCH (08:23)
[2016-10-03] MEDS: IV NORMAL SALINE 1000ML BAG 1,000 ML IV SCH ×2 (09:04→17:07)
[2016-10-03] MEDS: VANCOMYCIN 1.5 GM in IV NORMAL SALINE 500ML BAG 500 ML IV SCH (10:35)
--- NOTE | 2016-10-03 11:38 | PDOC ---
Infectious Disease Note Subjective Subjective + diarrhea last 12 hours or so, starting to slow down. Atributes to tufe feeds. Shaquille nausea, abdominal cramping or bloating. Less cough and sputum Fever Tmax 100.4 ROS ROS GEN: Denies chills, sweats CV: Denies chest pain RESP: Denies shortness of air Vital Sign Vital Signs Vital Signs Date Time Temp Pulse Resp B/P (MAP) Pulse Ox O2 Delivery O2 Flow Rate FiO2 10/03/16 10:17 98.4 88 16 120/73 (89) 93 Room Air 98.4 10/02/16 07:00 3.0 Physical Exam PHYSICAL EXAM GENERAL: NAD, Alert HEENT: Oral cavity pink, dry LUNGS: Diminished aeration bases. nonlabored HEART: S1S2 ABD: Soft, NT, J-tube EXT: No edema, no cyanosis INGREDIENT SPECIALIST: Alert, oriented x 3, no focal neurologic deficit SKIN: No rash IV: ok Port. + bruising Labs Lab Laboratory Tests Test 10/02/16 19:45 10/03/16 05:15 Vancomycin Level Trough 11.3 mcg/mL (10.0-20.0) Vancomycin Last Dose Date Vancomycin Last Dose Time White Blood Count 21.4 x10^3/uL (4.0-11.0) Red Blood Count 3.27 x10^6/uL (4.30-5.70) Hemoglobin 9.5 g/dL (13.0-17.5) Hematocrit 28.2 % (39.0-53.0) Mean Corpuscular Volume 86 fL (79-100) Mean Corpuscular Hemoglobin 29 pg (25-35) Mean Corpuscular Hemoglobin Concent 34 g/dL (31-37) Red Cell Distribution Width 16.2 % (11.5-14.5) Platelet Count 307 x10^3/uL (140-400) Neutrophils (%) (Auto) 90 % (31-73) Lymphocytes (%) (Auto) 3 % (24-48) Monocytes (%) (Auto) 6 % (0-9) Eosinophils (%) (Auto) 0 % (0-3) Basophils (%) (Auto) 0 % (0-3) Neutrophils # (Auto) 19.3 x10^3uL (1.8-7.7) Lymphocytes # (Auto) 0.5 x10^3/uL (1.0-4.8) Monocytes # (Auto) 1.4 x10^3/uL (0.0-1.1) Eosinophils # (Auto) 0.1 x10^3/uL (0.0-0.7) Basophils # (Auto) 0.1 x10^3/uL (0.0-0.2) Sodium Level 139 mmol/L (136-145) Potassium Level 3.5 mmol/L (3.5-5.1) Chloride Level 103 mmol/L (98-107) Carbon Dioxide Level 25 mmol/L (21-32) Anion Gap 11 (6-14) Blood Urea Nitrogen 15 mg/dL (8-26) Creatinine 0.8 mg/dL (0.7-1.3) Estimated GFR (Cockcroft-Gault) 95.6 Glucose Level 115 mg/dL (70-99) Calcium Level 8.3 mg/dL (8.5-10.1) Micro Sputum culture pending. No organisms on gram stain BC NGTD Objective Assessment HCAP - right Leukocytosis Fever s/p J-tube and port placement Recurrent esophageal cancer Loose stool. ? tube feeds plus colchicine Plan Plan of Care Continue vanc, Zosyn and Levaquin for now F/u sputum culture/blood cults Will modify antibiotics as additional information and cultures become available f/u am labs and C. diff PCR Repeat CXR Add probiotics Attending Co-Sign Attending Co-Sign The patient was seen and interviewed as well as examined at the bedside. The chart was reviewed. The case was discussed. Agree with the plan of care. DASIA VALDEZ APRN Oct 03, 2016 11:37 BRADY KIM MD Oct 03, 2016 12:16
[2016-10-03] MEDS: ENOXAPARIN 40 MG/0.4 ML SYRINGE. SQ SCH (13:07)
--- NOTE | 2016-10-03 13:41 | PDOC ---
PROGRESS NOTES Chief Complaint Chief Complaint 1. RUL PNA in an immunocompromised 2. Sepsis POA (tachy, WBC 20s) without target organ damage 3. Esophageal CA with indwelling PEG 4. MIld pCM 5. ARF unspecified, resolved 6. Diarrhea History of Present Illness History of Present Illness Diarrhea started yesterday Claims sometimes that happens with his TF NO fever WBC coming down slow, 21 today from 24 on admit NOt on steroids ID on board PLAn: Cont antibiotics per ID Started on probiotic today 10/03 Send for stool c diff and culture Immodium prn for now Dw pt and RN Vitals Vitals Vital Signs Date Time Temp Pulse Resp B/P (MAP) Pulse Ox O2 Delivery O2 Flow Rate FiO2 10/03/16 10:17 98.4 88 16 120/73 (89) 93 Room Air 98.4 10/02/16 07:00 3.0 Physical Exam General: Alert, Oriented X3, Cooperative, No acute distress Lungs: Clear Abdomen: Normal bowel sounds, Soft, No tenderness, No hepatosplenomegaly, No masses Extremities: No clubbing, No cyanosis, No edema, Normal pulses, No tenderness/ swelling Skin: No rashes, No breakdown, No significant lesion Labs LABS Laboratory Tests Test 10/02/16 19:45 10/03/16 05:15 Vancomycin Level Trough 11.3 mcg/mL (10.0-20.0) Vancomycin Last Dose Date Vancomycin Last Dose Time White Blood Count 21.4 x10^3/uL (4.0-11.0) Red Blood Count 3.27 x10^6/uL (4.30-5.70) Hemoglobin 9.5 g/dL (13.0-17.5) Hematocrit 28.2 % (39.0-53.0) Mean Corpuscular Volume 86 fL (79-100) Mean Corpuscular Hemoglobin 29 pg (25-35) Mean Corpuscular Hemoglobin Concent 34 g/dL (31-37) Red Cell Distribution Width 16.2 % (11.5-14.5) Platelet Count 307 x10^3/uL (140-400) Neutrophils (%) (Auto) 90 % (31-73) Lymphocytes (%) (Auto) 3 % (24-48) Monocytes (%) (Auto) 6 % (0-9) Eosinophils (%) (Auto) 0 % (0-3) Basophils (%) (Auto) 0 % (0-3) Neutrophils # (Auto) 19.3 x10^3uL (1.8-7.7) Lymphocytes # (Auto) 0.5 x10^3/uL (1.0-4.8) Monocytes # (Auto) 1.4 x10^3/uL (0.0-1.1) Eosinophils # (Auto) 0.1 x10^3/uL (0.0-0.7) Basophils # (Auto) 0.1 x10^3/uL (0.0-0.2) Sodium Level 139 mmol/L (136-145) Potassium Level 3.5 mmol/L (3.5-5.1) Chloride Level 103 mmol/L (98-107) Carbon Dioxide Level 25 mmol/L (21-32) Anion Gap 11 (6-14) Blood Urea Nitrogen 15 mg/dL (8-26) Creatinine 0.8 mg/dL (0.7-1.3) Estimated GFR (Cockcroft-Gault) 95.6 Glucose Level 115 mg/dL (70-99) Calcium Level 8.3 mg/dL (8.5-10.1) Review of Systems Review of Systems diarrhea, no abd pain, emesis Assessment and Plan Assessmemt and Plan Problems Medical Problems: (1) Sepsis Status: Acute Problems: Comment Review of Relevant I have reviewed the following items skyler (where applicable) has been applied. Labs Laboratory Tests Test 10/02/16 04:02 10/02/16 19:45 10/03/16 05:15 White Blood Count 22.8 x10^3/uL (4.0-11.0) 21.4 x10^3/uL (4.0-11.0) Red Blood Count 3.43 x10^6/uL (4.30-5.70) 3.27 x10^6/uL (4.30-5.70) Hemoglobin 10.0 g/dL (13.0-17.5) 9.5 g/dL (13.0-17.5) Hematocrit 30.0 % (39.0-53.0) 28.2 % (39.0-53.0) Mean Corpuscular Volume 88 fL (79-100) 86 fL (79-100) Mean Corpuscular Hemoglobin 29 pg (25-35) 29 pg (25-35) Mean Corpuscular Hemoglobin Concent 33 g/dL (31-37) 34 g/dL (31-37) Red Cell Distribution Width 16.0 % (11.5-14.5) 16.2 % (11.5-14.5) Platelet Count 329 x10^3/uL (140-400) 307 x10^3/uL (140-400) Neutrophils (%) (Auto) 88 % (31-73) 90 % (31-73) Lymphocytes (%) (Auto) 5 % (24-48) 3 % (24-48) Monocytes (%) (Auto) 6 % (0-9) 6 % (0-9) Eosinophils (%) (Auto) 1 % (0-3) 0 % (0-3) Basophils (%) (Auto) 0 % (0-3) 0 % (0-3) Neutrophils # (Auto) 20.1 x10^3uL (1.8-7.7) 19.3 x10^3uL (1.8-7.7) Lymphocytes # (Auto) 1.1 x10^3/uL (1.0-4.8) 0.5 x10^3/uL (1.0-4.8) Monocytes # (Auto) 1.4 x10^3/uL (0.0-1.1) 1.4 x10^3/uL (0.0-1.1) Eosinophils # (Auto) 0.1 x10^3/uL (0.0-0.7) 0.1 x10^3/uL (0.0-0.7) Basophils # (Auto) 0.0 x10^3/uL (0.0-0.2) 0.1 x10^3/uL (0.0-0.2) Sodium Level 141 mmol/L (136-145) 139 mmol/L (136-145) Potassium Level 4.4 mmol/L (3.5-5.1) 3.5 mmol/L (3.5-5.1) Chloride Level 106 mmol/L (98-107) 103 mmol/L (98-107) Carbon Dioxide Level 28 mmol/L (21-32) 25 mmol/L (21-32) Anion Gap 7 (6-14) 11 (6-14) Blood Urea Nitrogen 19 mg/dL (8-26) 15 mg/dL (8-26) Creatinine 1.0 mg/dL (0.7-1.3) 0.8 mg/dL (0.7-1.3) Estimated GFR (Cockcroft-Gault) 73.9 95.6 Glucose Level 100 mg/dL (70-99) 115 mg/dL (70-99) Calcium Level 8.2 mg/dL (8.5-10.1) 8.3 mg/dL (8.5-10.1) Vancomycin Level Trough 11.3 mcg/mL (10.0-20.0) Vancomycin Last Dose Date Vancomycin Last Dose Time Laboratory Tests Test 10/02/16 19:45 10/03/16 05:15 Vancomycin Level Trough 11.3 mcg/mL (10.0-20.0) Vancomycin Last Dose Date Vancomycin Last Dose Time White Blood Count 21.4 x10^3/uL (4.0-11.0) Red Blood Count 3.27 x10^6/uL (4.30-5.70) Hemoglobin 9.5 g/dL (13.0-17.5) Hematocrit 28.2 % (39.0-53.0) Mean Corpuscular Volume 86 fL (79-100) Mean Corpuscular Hemoglobin 29 pg (25-35) Mean Corpuscular Hemoglobin Concent 34 g/dL (31-37) Red Cell Distribution Width 16.2 % (11.5-14.5) Platelet Count 307 x10^3/uL (140-400) Neutrophils (%) (Auto) 90 % (31-73) Lymphocytes (%) (Auto) 3 % (24-48) Monocytes (%) (Auto) 6 % (0-9) Eosinophils (%) (Auto) 0 % (0-3) Basophils (%) (Auto) 0 % (0-3) Neutrophils # (Auto) 19.3 x10^3uL (1.8-7.7) Lymphocytes # (Auto) 0.5 x10^3/uL (1.0-4.8) Monocytes # (Auto) 1.4 x10^3/uL (0.0-1.1) Eosinophils # (Auto) 0.1 x10^3/uL (0.0-0.7) Basophils # (Auto) 0.1 x10^3/uL (0.0-0.2) Sodium Level 139 mmol/L (136-145) Potassium Level 3.5 mmol/L (3.5-5.1) Chloride Level 103 mmol/L (98-107) Carbon Dioxide Level 25 mmol/L (21-32) Anion Gap 11 (6-14) Blood Urea Nitrogen 15 mg/dL (8-26) Creatinine 0.8 mg/dL (0.7-1.3) Estimated GFR (Cockcroft-Gault) 95.6 Glucose Level 115 mg/dL (70-99) Calcium Level 8.3 mg/dL (8.5-10.1) Microbiology 10/01/16 Blood Culture - Preliminary, Resulted NO GROWTH AFTER 2 DAYS 10/01/16 Gram Stain - Final, Complete Medications Current Medications Ondansetron HCl (Zofran) 4 mg 1X ONCE IV Last administered on 10/01/16 07:52 ; Start 10/01/16 at 07:15; Stop 10/01/16 at 07:18; Status DC Sodium Chloride 1,000 ml @ 1,000 mls/hr 1X ONCE IV Last administered on 07:52; Start 10/01/16 at 07:45; Stop 10/01/16 at 08:44; Status DC Acetaminophen (Tylenol) 1,000 mg 1X ONCE PO Last administered on 10/01/16 07: 52; Start 10/01/16 at 07:45; Stop 10/01/16 at 07:46; Status DC Vancomycin HCl (Vanco Per Pharmacy) 1 each PRN DAILY PRN MC SEE COMMENTS Last administered on 10/02/16 20:48; Start 10/01/16 at 07:45 Heparin Sodium (Porcine) (Hep Lock Adult) 500 unit STK-MED ONCE IV ; Start 10/01 at 07:46; Stop 10/01/16 at 07:47; Status DC Levofloxacin/ Dextrose (Levaquin Per Pharmacy) 1 each PRN DAILY PRN MC SEE COMMENTS; Start 10/01/16 at 08:00 Levofloxacin/ Dextrose 150 ml @ 100 mls/hr 1X ONCE IV Last administered on 08:33; Start 10/01/16 at 08:00; Stop 10/01/16 at 09:29; Status DC Vancomycin HCl 1.75 gm/Sodium Chloride 500 ml @ 250 mls/hr 1X ONCE IV Last administered on 10/01/16 08:15; Start 10/01/16 at 08:15; Stop 10/01/16 at 10:14 ; Status DC Vancomycin HCl 1.75 gm/Sodium Chloride 500 ml @ 250 mls/hr 1X ONCE IV ; Start 10/01/16 at 09:00; Stop 10/01/16 at 10:59; Status Cancel Piperacillin Sod/ Tazobactam Sod (Zosyn Per Pharmacy) 1 each PRN DAILY PRN MC SEE COMMENTS; Start 10/01/16 at 08:15 Piperacillin Sod/ Tazobactam Sod 4.5 gm/Sodium Chloride 100 ml @ 200 mls/hr 1X ONCE IV Last administered on 10/01/16 13:36; Start 10/01/16 at 08:30; Stop 10/01/16 at 08:59; Status DC Ondansetron HCl (Zofran) 4 mg PRN Q8HRS PRN IV NAUSEA/VOMITING; Start 10/01/16 at 08:30; Stop 10/01/16 at 08:43; Status DC Sodium Chloride 1,000 ml @ 1,000 mls/hr 1X ONCE IV Last administered on 11:18; Start 10/01/16 at 08:30; Stop 10/01/16 at 09:29; Status DC Sodium Chloride 1,000 ml @ 80 mls/hr [id number] IV Last administered on 21:14; Start 10/01/16 at 08:30 Ondansetron HCl (Zofran) 4 mg PRN Q6HRS PRN IV NAUSEA/VOMITING; Start 10/01/16 at 08:40; Stop 10/02/16 at 08:39; Status DC Acetaminophen (Tylenol) 500 mg PRN Q6HRS PRN PO MILD PAIN / TEMP; Start at 08:45 Aspirin (Ecotrin) 81 mg DAILY PO ; Start 10/01/16 at 09:00; Stop 10/01/16 at 10: 49; Status DC Colchicine (Colcrys) 0.6 mg DAILY PO Last administered on 10/03/16 08:23; Start 10/01/16 at 09:00 Lisinopril (Prinivil) 20 mg DAILY PO Last administered on 10/03/16 08:23; Start 10/01/16 at 09:00 Non-Formulary Medication 1 each DAILY PO ; Start 10/01/16 at 09:00; Status UNV Levofloxacin/ Dextrose 150 ml @ 100 mls/hr Q24H IV Last administered on 08:23; Start 10/02/16 at 09:00 Piperacillin Sod/ Tazobactam Sod 4.5 gm/Sodium Chloride 100 ml @ 200 mls/hr Q6HRS IV Last administered on 10/03/16 12:31; Start 10/01/16 at 18:00 Aspirin (Children'S Aspirin) 81 mg DAILYWBKFT PO ; Start 10/01/16 at 10:45; Status UNV Aspirin (Children'S Aspirin) 81 mg DAILYWBKFT PO Last administered on 08:23; Start 10/01/16 at 11:00 Enoxaparin Sodium (Lovenox 40mg Syringe) 40 mg Q24H SQ ; Start 10/01/16 at 13:00 Vancomycin HCl 1 gm/Sodium Chloride 250 ml @ 250 mls/hr Q12H IV Last administered on 10/02/16 08:08; Start 10/01/16 at 20:00; Stop 10/02/16 at 20:43 ; Status DC Vancomycin HCl 1 each 1X ONCE MC Last administered on 10/02/16 19:30; Start 10/02/16 at 19:30; Stop 10/02/16 at 19:31; Status DC Loperamide HCl (Imodium) 2 mg PRN Q2HRS PRN PEG DIARRHEA Last administered on 12:31; Start 10/02/16 at 17:15 Vancomycin HCl 1.5 gm/Sodium Chloride 500 ml @ 250 mls/hr Q12H IV Last administered on 10/03/16 10:35; Start 10/02/16 at 21:00 Lactobacillus Acidophilus (Bacid, Sonam-Bid) 1 tab TIDWMEALS PO ; Start 10/03/16 at 17:00 Active Scripts Active Reported Aspir 81 (Aspirin) 81 Mg Tablet.dr 1 Tab PO DAILY Colchicine 0.6 Mg Tablet 0.6 Mg PO DAILY Glucosamine & Chondroitin Cap (Glucosa Meneses 2KCL/Chondroitin Meneses) 1 Each Capsule 1 Each PO DAILY Benazepril Hcl 10 Mg Tablet 20 Mg PO DAILY Vitals/I & O Vital Sign - Last 24 Hours 10/02/16 10/02/16 10/02/16 10/02/16 15:00 19:59 20:00 23:56 Temp 99.1 97.9 100.8 99.1 97.9 100.8 Pulse 86 102 84 Resp 16 20 20 B/P (MAP) 126/72 (90) 127/74 (91) 127/81 (96) Pulse Ox 97 94 94 O2 Delivery Room Air Room Air Room Air Room Air 10/03/16 10/03/16 10/03/16 10/03/16 03:59 07:45 08:00 08:23 Temp 97.9 98.7 97.9 98.7 Pulse 82 85 85 Resp 18 18 B/P (MAP) 141/80 (100) 116/63 (80) 116/63 Pulse Ox 93 93 O2 Delivery Room Air Room Air Room Air 10/03/16 10:17 Temp 98.4 98.4 Pulse 88 Resp 16 B/P (MAP) 120/73 (89) Pulse Ox 93 O2 Delivery Room Air Intake and Output 10/02/16 10/02/16 10/03/16 15:00 23:00 07:00 Intake Total 470 ml Balance 470 ml DWIGHT [id number] MD Oct 03, 2016 13:41
--- NOTE | 2016-10-03 14:00 | RAD ---
PA and lateral chest. History: Pneumonia PA and lateral views the chest were compared with a study from 2 days ago. There are still bilateral areas of infiltrate. There are small bilateral effusions. There is a pneumoperitoneum with air under the diaphragms. By history the patient had a recent PEG tube placement. Impression: 1. Little change bilateral pneumonia. 2. Small bilateral effusions. 3. Pneumoperitoneum. The nurse on the floor was called and notified of the findings.
[2016-10-03] MEDS: VANCOMYCIN PER PHARMACY MC PRN (14:25)
[2016-10-03] MEDS: LACTOBACILLUS ACIDOPH & BULGAR 1 TABLET. PO SCH (17:06)
[2016-10-04] MEDS: VANCOMYCIN 1.5 GM in IV NORMAL SALINE 500ML BAG 500 ML IV SCH ×3 (00:47→21:20)
[2016-10-04] MEDS: PIPERACILLIN/TAZOBACTAM 4.5 GM in IV NORMAL SALINE 100ML 100 ML IV SCH ×4 (00:49→18:50)
[2016-10-04 03:10] VITALS: BP 143/81
[2016-10-04 06:18] LABS: BASO # 0.1 x10^3/uL (0.0-0.2); BASO % 0 % (0-3); EOS % 1 % (0-3); HEMATOCRIT 30.7 % (39.0-53.0); HEMOGLOBIN 9.9 g/dL (13.0-17.5); LYMPH # 0.5 x10^3/uL (1.0-4.8); LYMPH % 4 % (24-48); MEAN CORPUSCULAR HEMOGLOBIN 28 pg (25-35); MEAN CORPUSCULAR HGB CONC 32 g/dL (31-37); MEAN CORPUSCULAR VOLUME 87 fL (79-100); MONO % 8 % (0-9); NEUT % 86 % (31-73); PLATELET COUNT 298 x10^3/uL (140-400); RED BLOOD COUNT 3.51 x10^6/uL (4.30-5.70); RED CELL DISTRIBUTION WIDTH 15.7 % (11.5-14.5); WHITE BLOOD COUNT 14.3 x10^3/uL (4.0-11.0)
[2016-10-04 07:21] VITALS: BP 141/84
[2016-10-04] MEDS: LACTOBACILLUS ACIDOPH & BULGAR 1 TABLET. PO SCH ×3 (09:07→17:00)
[2016-10-04] MEDS: COLCHICINE 0.6 MG TABLET PO SCH (09:07)
[2016-10-04] MEDS: LISINOPRIL 20 MG TABLET PO SCH (09:07)
[2016-10-04] MEDS: ASPIRIN CHEWABLE 81 MG TABLET. PO SCH (09:07)
[2016-10-04 10:44] VITALS: BP 127/67
--- NOTE | 2016-10-04 10:50 | PDOC ---
Infectious Disease Note Subjective Subjective Denies pain Stools starting to firm up Less cough and sputum No fever last 24 hours ROS ROS GEN: Denies chills, sweats CV: Denies chest pain RESP: Denies shortness of air GI: Denies n/v Vital Sign Vital Signs Vital Signs Date Time Temp Pulse Resp B/P (MAP) Pulse Ox O2 Delivery O2 Flow Rate FiO2 10/04/16 09:07 86 141/84 10/04/16 08:00 Room Air 10/04/16 07:21 98.4 18 95 98.4 Physical Exam PHYSICAL EXAM GENERAL: Propped up in bed, alert, relaxed appearance HEENT: Oral cavity pink, dry LUNGS: Improved aeration, fine crackles RLL posteriorly,nonlabored HEART: S1S2 ABD: BS active, soft, NT, J-tube EXT: No edema, no cyanosis 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 + bruising Labs Lab Laboratory Tests Test 10/04/16 05:55 White Blood Count 14.3 x10^3/uL (4.0-11.0) Red Blood Count 3.51 x10^6/uL (4.30-5.70) Hemoglobin 9.9 g/dL (13.0-17.5) Hematocrit 30.7 % (39.0-53.0) Mean Corpuscular Volume 87 fL (79-100) Mean Corpuscular Hemoglobin 28 pg (25-35) Mean Corpuscular Hemoglobin Concent 32 g/dL (31-37) Red Cell Distribution Width 15.7 % (11.5-14.5) Platelet Count 298 x10^3/uL (140-400) Neutrophils (%) (Auto) 86 % (31-73) Lymphocytes (%) (Auto) 4 % (24-48) Monocytes (%) (Auto) 8 % (0-9) Eosinophils (%) (Auto) 1 % (0-3) Basophils (%) (Auto) 0 % (0-3) Neutrophils # (Auto) 12.4 x10^3uL (1.8-7.7) Lymphocytes # (Auto) 0.5 x10^3/uL (1.0-4.8) Monocytes # (Auto) 1.2 x10^3/uL (0.0-1.1) Eosinophils # (Auto) 0.1 x10^3/uL (0.0-0.7) Basophils # (Auto) 0.1 x10^3/uL (0.0-0.2) PA and lateral chest. PA and lateral views the chest were compared with a study from 2 days ago. There are still bilateral areas of infiltrate. There are small bilateral effusions. There is a pneumoperitoneum with air under the diaphragms. By history the patient had a recent PEG tube placement. Impression: 1. Little change bilateral pneumonia. 2. Small bilateral effusions. 3. Pneumoperitoneum. The nurse on the floor was called and notified of the findings. Micro SPUTUM CULT RES 1 Preliminary Routine respiratory ad BLOOD CULTURE Preliminary NO GROWTH AFTER 3 DAYS Objective Assessment HCAP - right Leukocytosis, trending down Fever, better s/p J-tube and port placement Recurrent esophageal cancer Pneumoperitoneum on repeat chest x-ray, 10/03 Plan Plan of Care Continue vanc, Zosyn and Levaquin for now - to po soon Continue probiotics Sputum culture/blood cults NGTD Surgery to address malfunctioning tube. Not flowing since adjustment Monitor labs D/w Nursing D/w family Attending Co-Sign Attending Co-Sign The patient was seen and interviewed as well as examined at the bedside. The chart was reviewed. The case was discussed. Agree with the plan of care. DASIA VALDEZ APRN Oct 04, 2016 10:50 BRADY KIM MD Oct 04, 2016 16:41
--- NOTE | 2016-10-04 11:22 | PDOC ---
PROGRESS NOTES Chief Complaint Chief Complaint 1. RUL PNA in an immunocompromised 2. Sepsis POA (tachy, WBC 20s) without target organ damage 3. Esophageal CA with indwelling PEG 4. MIld pCM 5. ARF unspecified, resolved 6. Diarrhea History of Present Illness History of Present Illness Diarrhe abetter since started on probiotic WBC lowets its ever been 14 today fropm 20s No fever CXR done yesterday: Impression: 1. Little change bilateral pneumonia. 2. Small bilateral effusions. 3. Pneumoperitoneum. The nurse on the floor was called and notified of the findings. PLAn: Cont antibiotics per ID Cont probiotic MAy cont iVF per pt request Consult GS re free air - he looks comfortable , pEG in place but after dw ID would prefer GS to take a look too Immodium prn for now Dw pt and RN Vitals Vitals Vital Signs Date Time Temp Pulse Resp B/P (MAP) Pulse Ox O2 Delivery O2 Flow Rate FiO2 10/04/16 10:44 97.5 93 17 127/67 (87) 94 Room Air 97.5 Physical Exam General: Alert, Oriented X3, Cooperative, No acute distress Lungs: Clear Abdomen: Normal bowel sounds, Soft, No tenderness, No hepatosplenomegaly, No masses Extremities: No clubbing, No cyanosis, No edema, Normal pulses, No tenderness/ swelling Skin: No rashes, No breakdown, No significant lesion Labs LABS Laboratory Tests Test 10/04/16 05:55 White Blood Count 14.3 x10^3/uL (4.0-11.0) Red Blood Count 3.51 x10^6/uL (4.30-5.70) Hemoglobin 9.9 g/dL (13.0-17.5) Hematocrit 30.7 % (39.0-53.0) Mean Corpuscular Volume 87 fL (79-100) Mean Corpuscular Hemoglobin 28 pg (25-35) Mean Corpuscular Hemoglobin Concent 32 g/dL (31-37) Red Cell Distribution Width 15.7 % (11.5-14.5) Platelet Count 298 x10^3/uL (140-400) Neutrophils (%) (Auto) 86 % (31-73) Lymphocytes (%) (Auto) 4 % (24-48) Monocytes (%) (Auto) 8 % (0-9) Eosinophils (%) (Auto) 1 % (0-3) Basophils (%) (Auto) 0 % (0-3) Neutrophils # (Auto) 12.4 x10^3uL (1.8-7.7) Lymphocytes # (Auto) 0.5 x10^3/uL (1.0-4.8) Monocytes # (Auto) 1.2 x10^3/uL (0.0-1.1) Eosinophils # (Auto) 0.1 x10^3/uL (0.0-0.7) Basophils # (Auto) 0.1 x10^3/uL (0.0-0.2) Review of Systems Review of Systems denies 14 pt systems reviewed Assessment and Plan Assessmemt and Plan Problems Medical Problems: (1) Sepsis Status: Acute Problems: Comment Review of Relevant I have reviewed the following items skyler (where applicable) has been applied. Labs Laboratory Tests Test 10/02/16 19:45 10/03/16 05:15 10/04/16 05:55 Vancomycin Level Trough 11.3 mcg/mL (10.0-20.0) Vancomycin Last Dose Date Vancomycin Last Dose Time White Blood Count 21.4 x10^3/uL (4.0-11.0) 14.3 x10^3/uL (4.0-11.0) Red Blood Count 3.27 x10^6/uL (4.30-5.70) 3.51 x10^6/uL (4.30-5.70) Hemoglobin 9.5 g/dL (13.0-17.5) 9.9 g/dL (13.0-17.5) Hematocrit 28.2 % (39.0-53.0) 30.7 % (39.0-53.0) Mean Corpuscular Volume 86 fL (79-100) 87 fL (79-100) Mean Corpuscular Hemoglobin 29 pg (25-35) 28 pg (25-35) Mean Corpuscular Hemoglobin Concent 34 g/dL (31-37) 32 g/dL (31-37) Red Cell Distribution Width 16.2 % (11.5-14.5) 15.7 % (11.5-14.5) Platelet Count 307 x10^3/uL (140-400) 298 x10^3/uL (140-400) Neutrophils (%) (Auto) 90 % (31-73) 86 % (31-73) Lymphocytes (%) (Auto) 3 % (24-48) 4 % (24-48) Monocytes (%) (Auto) 6 % (0-9) 8 % (0-9) Eosinophils (%) (Auto) 0 % (0-3) 1 % (0-3) Basophils (%) (Auto) 0 % (0-3) 0 % (0-3) Neutrophils # (Auto) 19.3 x10^3uL (1.8-7.7) 12.4 x10^3uL (1.8-7.7) Lymphocytes # (Auto) 0.5 x10^3/uL (1.0-4.8) 0.5 x10^3/uL (1.0-4.8) Monocytes # (Auto) 1.4 x10^3/uL (0.0-1.1) 1.2 x10^3/uL (0.0-1.1) Eosinophils # (Auto) 0.1 x10^3/uL (0.0-0.7) 0.1 x10^3/uL (0.0-0.7) Basophils # (Auto) 0.1 x10^3/uL (0.0-0.2) 0.1 x10^3/uL (0.0-0.2) Sodium Level 139 mmol/L (136-145) Potassium Level 3.5 mmol/L (3.5-5.1) Chloride Level 103 mmol/L (98-107) Carbon Dioxide Level 25 mmol/L (21-32) Anion Gap 11 (6-14) Blood Urea Nitrogen 15 mg/dL (8-26) Creatinine 0.8 mg/dL (0.7-1.3) Estimated GFR (Cockcroft-Gault) 95.6 Glucose Level 115 mg/dL (70-99) Calcium Level 8.3 mg/dL (8.5-10.1) Laboratory Tests Test 10/04/16 05:55 White Blood Count 14.3 x10^3/uL (4.0-11.0) Red Blood Count 3.51 x10^6/uL (4.30-5.70) Hemoglobin 9.9 g/dL (13.0-17.5) Hematocrit 30.7 % (39.0-53.0) Mean Corpuscular Volume 87 fL (79-100) Mean Corpuscular Hemoglobin 28 pg (25-35) Mean Corpuscular Hemoglobin Concent 32 g/dL (31-37) Red Cell Distribution Width 15.7 % (11.5-14.5) Platelet Count 298 x10^3/uL (140-400) Neutrophils (%) (Auto) 86 % (31-73) Lymphocytes (%) (Auto) 4 % (24-48) Monocytes (%) (Auto) 8 % (0-9) Eosinophils (%) (Auto) 1 % (0-3) Basophils (%) (Auto) 0 % (0-3) Neutrophils # (Auto) 12.4 x10^3uL (1.8-7.7) Lymphocytes # (Auto) 0.5 x10^3/uL (1.0-4.8) Monocytes # (Auto) 1.2 x10^3/uL (0.0-1.1) Eosinophils # (Auto) 0.1 x10^3/uL (0.0-0.7) Basophils # (Auto) 0.1 x10^3/uL (0.0-0.2) Microbiology 10/01/16 Blood Culture - Preliminary, Resulted NO GROWTH AFTER 3 DAYS 10/01/16 Sputum Culture - Preliminary, Resulted 10/01/16 Sputum Result 1 - Preliminary, Resulted Medications Current Medications Ondansetron HCl (Zofran) 4 mg 1X ONCE IV Last administered on 10/01/16 07:52 ; Start 10/01/16 at 07:15; Stop 10/01/16 at 07:18; Status DC Sodium Chloride 1,000 ml @ 1,000 mls/hr 1X ONCE IV Last administered on 07:52; Start 10/01/16 at 07:45; Stop 10/01/16 at 08:44; Status DC Acetaminophen (Tylenol) 1,000 mg 1X ONCE PO Last administered on 10/01/16 07: 52; Start 10/01/16 at 07:45; Stop 10/01/16 at 07:46; Status DC Vancomycin HCl (Vanco Per Pharmacy) 1 each PRN DAILY PRN MC SEE COMMENTS Last administered on 10/03/16 14:25; Start 10/01/16 at 07:45 Heparin Sodium (Porcine) (Hep Lock Adult) 500 unit STK-MED ONCE IV ; Start 10/01 at 07:46; Stop 10/01/16 at 07:47; Status DC Levofloxacin/ Dextrose (Levaquin Per Pharmacy) 1 each PRN DAILY PRN MC SEE COMMENTS; Start 10/01/16 at 08:00; Stop 10/03/16 at 14:20; Status DC Levofloxacin/ Dextrose 150 ml @ 100 mls/hr 1X ONCE IV Last administered on 08:33; Start 10/01/16 at 08:00; Stop 10/01/16 at 09:29; Status DC Vancomycin HCl 1.75 gm/Sodium Chloride 500 ml @ 250 mls/hr 1X ONCE IV Last administered on 10/01/16 08:15; Start 10/01/16 at 08:15; Stop 10/01/16 at 10:14 ; Status DC Vancomycin HCl 1.75 gm/Sodium Chloride 500 ml @ 250 mls/hr 1X ONCE IV ; Start 10/01/16 at 09:00; Stop 10/01/16 at 10:59; Status Cancel Piperacillin Sod/ Tazobactam Sod (Zosyn Per Pharmacy) 1 each PRN DAILY PRN MC SEE COMMENTS; Start 10/01/16 at 08:15; Stop 10/03/16 at 14:20; Status DC Piperacillin Sod/ Tazobactam Sod 4.5 gm/Sodium Chloride 100 ml @ 200 mls/hr 1X ONCE IV Last administered on 10/01/16 13:36; Start 10/01/16 at 08:30; Stop 10/01/16 at 08:59; Status DC Ondansetron HCl (Zofran) 4 mg PRN Q8HRS PRN IV NAUSEA/VOMITING; Start 10/01/16 at 08:30; Stop 10/01/16 at 08:43; Status DC Sodium Chloride 1,000 ml @ 1,000 mls/hr 1X ONCE IV Last administered on 11:18; Start 10/01/16 at 08:30; Stop 10/01/16 at 09:29; Status DC Sodium Chloride 1,000 ml @ 80 mls/hr [id number] IV Last administered on 17:07; Start 10/01/16 at 08:30; Stop 10/03/16 at 18:25; Status DC Ondansetron HCl (Zofran) 4 mg PRN Q6HRS PRN IV NAUSEA/VOMITING; Start 10/01/16 at 08:40; Stop 10/02/16 at 08:39; Status DC Acetaminophen (Tylenol) 500 mg PRN Q6HRS PRN PO MILD PAIN / TEMP; Start at 08:45 Aspirin (Ecotrin) 81 mg DAILY PO ; Start 10/01/16 at 09:00; Stop 10/01/16 at 10: 49; Status DC Colchicine (Colcrys) 0.6 mg DAILY PO Last administered on 10/04/16 09:07; Start 10/01/16 at 09:00 Lisinopril (Prinivil) 20 mg DAILY PO Last administered on 10/04/16 09:07; Start 10/01/16 at 09:00 Non-Formulary Medication 1 each DAILY PO ; Start 10/01/16 at 09:00; Status UNV Levofloxacin/ Dextrose 150 ml @ 100 mls/hr Q24H IV Last administered on 09:08; Start 10/02/16 at 09:00 Piperacillin Sod/ Tazobactam Sod 4.5 gm/Sodium Chloride 100 ml @ 200 mls/hr Q6HRS IV Last administered on 10/04/16 05:41; Start 10/01/16 at 18:00 Aspirin (Children'S Aspirin) 81 mg DAILYWBKFT PO ; Start 10/01/16 at 10:45; Status UNV Aspirin (Children'S Aspirin) 81 mg DAILYWBKFT PO Last administered on 09:07; Start 10/01/16 at 11:00 Enoxaparin Sodium (Lovenox 40mg Syringe) 40 mg Q24H SQ ; Start 10/01/16 at 13:00 Vancomycin HCl 1 gm/Sodium Chloride 250 ml @ 250 mls/hr Q12H IV Last administered on 10/02/16 08:08; Start 10/01/16 at 20:00; Stop 10/02/16 at 20:43 ; Status DC Vancomycin HCl 1 each 1X ONCE MC Last administered on 10/02/16 19:30; Start 10/02/16 at 19:30; Stop 10/02/16 at 19:31; Status DC Loperamide HCl (Imodium) 2 mg PRN Q2HRS PRN PEG DIARRHEA Last administered on 12:31; Start 10/02/16 at 17:15 Vancomycin HCl 1.5 gm/Sodium Chloride 500 ml @ 250 mls/hr Q12H IV Last administered on 10/04/16 11:15; Start 10/02/16 at 21:00 Lactobacillus Acidophilus (Bacid, Sonam-Bid) 1 tab TIDWMEALS PO Last administered on 10/04/16 09:07; Start 10/03/16 at 17:00 Active Scripts Active Reported Aspir 81 (Aspirin) 81 Mg Tablet. 1 Tab PO DAILY Colchicine 0.6 Mg Tablet 0.6 Mg PO DAILY Glucosamine & Chondroitin Cap (Glucosa Meneses 2KCL/Chondroitin Meneses) 1 Each Capsule 1 Each PO DAILY Benazepril Hcl 10 Mg Tablet 20 Mg PO DAILY Vitals/I & O Vital Sign - Last 24 Hours 10/03/16 10/03/16 10/03/16 10/03/16 14:41 14:45 19:06 20:00 Temp 98.4 98.5 98.8 98.4 98.5 98.8 Pulse 78 78 87 Resp 15 15 B/P (MAP) 114/73 (87) 114/53 (73) 130/69 (89) Pulse Ox 93 93 95 O2 Delivery Room Air Room Air Room Air Room Air 10/03/16 10/04/16 10/04/16 10/04/16 23:25 03:10 07:21 08:00 Temp 97.9 98.0 98.4 97.9 98.0 98.4 Pulse 88 64 86 Resp 18 18 18 B/P (MAP) 136/85 (102) 143/81 (101) 141/84 (103) Pulse Ox 95 18 95 O2 Delivery Room Air Room Air Room Air Room Air 10/04/16 10/04/16 09:07 10:44 Temp 97.5 97.5 Pulse 86 93 Resp 17 B/P (MAP) 141/84 127/67 (87) Pulse Ox 94 O2 Delivery Room Air Intake and Output 10/03/16 10/03/16 10/04/16 15:00 23:00 07:00 Intake Total 1250 ml 400 ml Output Total 400 ml 400 ml Balance 850 ml 0 ml DWIGHT RODRIGUEZ MD Oct 04, 2016 11:22
[2016-10-04] MEDS ORDERED: IOHEXOL 240 MG/ML 50ML VIAL. PO ONE (12:15)
[2016-10-04] MEDS ORDERED: IOHEXOL 300 MG/ML 75 ML VIAL IV ONE (12:15)
[2016-10-04] MEDS: ENOXAPARIN 40 MG/0.4 ML SYRINGE. SQ SCH (13:00)
--- NOTE | 2016-10-04 13:14 | PDOC2 ---
CONSULT Date of Consult Date of Consult DATE: 10/04/16 TIME: 13:06 History of Present Illness Reason for Visit: CC: fever HPI: 71 yo male admitted with cough and fever. noted on cxr from 10/03/16 to have pneumoperitoneum. recent risk factors for this include xlap, g tube at approx 3 weeks ago--he isn't sure of the date. he has been using his feeding tube without problems. no abd pain, no n/v. +diarrhea, stable, not worse. associated hx includes esophageal cancer treated with chemo and rad approx 5 years ago. presented in july with esophageal obstruction. tx to and underwent attempted esophagectomy but was unresectable. had g tube placed. 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 heme no easy bleeding or bruising. psych no depression or anxiety neuro no headaches or seizures gi see hpi PE afeb 93 17 127/67 alert, no distress eyes pupils round, reactive. no icterus ent normocephalic, mucous membranes moist neck supple, no lymphadenopathy, nontender cv: 2+ left radial pulse. no pedal edema resp nonlabored, chest wall nontender to palp PAC in place on right chest gi abd soft nd nontender---completely nontender. well healed incision. g tube had pulled back to 10 cm and was not against the skin. neuro: alert/oriented x 3. no resting tremor psych cooperative with approp mood and affect labs noted cxr noted old records reviewed a/p pneumoperitoneum--asymptomatic. i suspect it may have to do with his g tube being loose and at 10 cm. i snugged it up against the skin at 4-[address] ordered. will f/u esophageal cancer moderate malnutrition poss pneumonia given fever, cough. Past Medical History Cardiovascular: HTN GI: Other Heme/Onc: Cancer Past Surgical History Past Surgical History: Tonsillectomy, Other Family History Family History: No Significant Social History No ALCOHOL: none Drugs: None Current Problem List Problem List Problems Medical Problems: (1) Sepsis Status: Acute Current Medications Current Medications Current Medications Ondansetron HCl (Zofran) 4 mg 1X ONCE IV Last administered on 10/01/16 07:52 ; Start 10/01/16 at 07:15; Stop 10/01/16 at 07:18; Status DC Sodium Chloride 1,000 ml @ 1,000 mls/hr 1X ONCE IV Last administered on 07:52; Start 10/01/16 at 07:45; Stop 10/01/16 at 08:44; Status DC Acetaminophen (Tylenol) 1,000 mg 1X ONCE PO Last administered on 10/01/16 07: 52; Start 10/01/16 at 07:45; Stop 10/01/16 at 07:46; Status DC Vancomycin HCl (Vanco Per Pharmacy) 1 each PRN DAILY PRN MC SEE COMMENTS Last administered on 10/03/16 14:25; Start 10/01/16 at 07:45 Heparin Sodium (Porcine) (Hep Lock Adult) 500 unit STK-MED ONCE IV ; Start 10/01 at 07:46; Stop 10/01/16 at 07:47; Status DC Levofloxacin/ Dextrose (Levaquin Per Pharmacy) 1 each PRN DAILY PRN MC SEE COMMENTS; Start 10/01/16 at 08:00; Stop 10/03/16 at 14:20; Status DC Levofloxacin/ Dextrose 150 ml @ 100 mls/hr 1X ONCE IV Last administered on 08:33; Start 10/01/16 at 08:00; Stop 10/01/16 at 09:29; Status DC Vancomycin HCl 1.75 gm/Sodium Chloride 500 ml @ 250 mls/hr 1X ONCE IV Last administered on 10/01/16 08:15; Start 10/01/16 at 08:15; Stop 10/01/16 at 10:14 ; Status DC Vancomycin HCl 1.75 gm/Sodium Chloride 500 ml @ 250 mls/hr 1X ONCE IV ; Start 10/01/16 at 09:00; Stop 10/01/16 at 10:59; Status Cancel Piperacillin Sod/ Tazobactam Sod (Zosyn Per Pharmacy) 1 each PRN DAILY PRN MC SEE COMMENTS; Start 10/01/16 at 08:15; Stop 10/03/16 at 14:20; Status DC Piperacillin Sod/ Tazobactam Sod 4.5 gm/Sodium Chloride 100 ml @ 200 mls/hr 1X ONCE IV Last administered on 10/01/16 13:36; Start 10/01/16 at 08:30; Stop 10/01/16 at 08:59; Status DC Ondansetron HCl (Zofran) 4 mg PRN Q8HRS PRN IV NAUSEA/VOMITING; Start 10/01/16 at 08:30; Stop 10/01/16 at 08:43; Status DC Sodium Chloride 1,000 ml @ 1,000 mls/hr 1X ONCE IV Last administered on 11:18; Start 10/01/16 at 08:30; Stop 10/01/16 at 09:29; Status DC Sodium Chloride 1,000 ml @ 80 mls/hr [id number] IV Last administered on 17:07; Start 10/01/16 at 08:30; Stop 10/03/16 at 18:25; Status DC Ondansetron HCl (Zofran) 4 mg PRN Q6HRS PRN IV NAUSEA/VOMITING; Start 10/01/16 at 08:40; Stop 10/02/16 at 08:39; Status DC Acetaminophen (Tylenol) 500 mg PRN Q6HRS PRN PO MILD PAIN / TEMP; Start at 08:45 Aspirin (Ecotrin) 81 mg DAILY PO ; Start 10/01/16 at 09:00; Stop 10/01/16 at 10: 49; Status DC Colchicine (Colcrys) 0.6 mg DAILY PO Last administered on 10/04/16 09:07; Start 10/01/16 at 09:00 Lisinopril (Prinivil) 20 mg DAILY PO Last administered on 10/04/16 09:07; Start 10/01/16 at 09:00 Non-Formulary Medication 1 each DAILY PO ; Start 10/01/16 at 09:00; Status UNV Levofloxacin/ Dextrose 150 ml @ 100 mls/hr Q24H IV Last administered on 09:08; Start 10/02/16 at 09:00 Piperacillin Sod/ Tazobactam Sod 4.5 gm/Sodium Chloride 100 ml @ 200 mls/hr Q6HRS IV Last administered on 10/04/16 05:41; Start 10/01/16 at 18:00 Aspirin (Children'S Aspirin) 81 mg DAILYWBKFT PO ; Start 10/01/16 at 10:45; Status UNV Aspirin (Children'S Aspirin) 81 mg DAILYWBKFT PO Last administered on 09:07; Start 10/01/16 at 11:00 Enoxaparin Sodium (Lovenox 40mg Syringe) 40 mg Q24H SQ ; Start 10/01/16 at 13:00 Vancomycin HCl 1 gm/Sodium Chloride 250 ml @ 250 mls/hr Q12H IV Last administered on 10/02/16 08:08; Start 10/01/16 at 20:00; Stop 10/02/16 at 20:43 ; Status DC Vancomycin HCl 1 each 1X ONCE MC Last administered on 10/02/16 19:30; Start 10/02/16 at 19:30; Stop 10/02/16 at 19:31; Status DC Loperamide HCl (Imodium) 2 mg PRN Q2HRS PRN PEG DIARRHEA Last administered on 12:31; Start 10/02/16 at 17:15 Vancomycin HCl 1.5 gm/Sodium Chloride 500 ml @ 250 mls/hr Q12H IV Last administered on 10/04/16 11:15; Start 10/02/16 at 21:00 Lactobacillus Acidophilus (Bacid, Sonam-Bid) 1 tab TIDWMEALS PO Last administered on 10/04/16 09:07; Start 10/03/16 at 17:00 Sodium Chloride 1,000 ml @ 60 mls/hr [id number] IV ; Start 10/04/16 at 11:30 Iohexol (Omnipaque 240 Mg/ml) 30 ml 1X ONCE PO ; Start 10/04/16 at 12:15; Stop 10/04/16 at 12:16; Status DC Iohexol (Omnipaque 300 Mg/ml) 75 ml 1X ONCE IV ; Start 10/04/16 at 12:15; Stop 10/04/16 at 12:16; Status DC Active Scripts Active Reported Aspir 81 (Aspirin) 81 Mg Tablet.dr 1 Tab PO DAILY Colchicine 0.6 Mg Tablet 0.6 Mg PO DAILY Glucosamine & Chondroitin Cap (Glucosa Meneses 2KCL/Chondroitin Meneses) 1 Each Capsule 1 Each PO DAILY Benazepril Hcl 10 Mg Tablet 20 Mg PO DAILY Allergies Allergies: Coded Allergies: No Known Drug Allergies (Unverified , 07/12/16) Vitals VITALS Vital Signs Date Time Temp Pulse Resp B/P (MAP) Pulse Ox O2 Delivery O2 Flow Rate FiO2 10/04/16 10:44 97.5 93 17 127/67 (87) 94 Room Air 97.5 Labs Labs Laboratory Tests Test 10/02/16 19:45 10/03/16 05:15 10/04/16 05:55 Vancomycin Level Trough 11.3 mcg/mL (10.0-20.0) Vancomycin Last Dose Date Vancomycin Last Dose Time White Blood Count 21.4 x10^3/uL (4.0-11.0) 14.3 x10^3/uL (4.0-11.0) Red Blood Count 3.27 x10^6/uL (4.30-5.70) 3.51 x10^6/uL (4.30-5.70) Hemoglobin 9.5 g/dL (13.0-17.5) 9.9 g/dL (13.0-17.5) Hematocrit 28.2 % (39.0-53.0) 30.7 % (39.0-53.0) Mean Corpuscular Volume 86 fL (79-100) 87 fL (79-100) Mean Corpuscular Hemoglobin 29 pg (25-35) 28 pg (25-35) Mean Corpuscular Hemoglobin Concent 34 g/dL (31-37) 32 g/dL (31-37) Red Cell Distribution Width 16.2 % (11.5-14.5) 15.7 % (11.5-14.5) Platelet Count 307 x10^3/uL (140-400) 298 x10^3/uL (140-400) Neutrophils (%) (Auto) 90 % (31-73) 86 % (31-73) Lymphocytes (%) (Auto) 3 % (24-48) 4 % (24-48) Monocytes (%) (Auto) 6 % (0-9) 8 % (0-9) Eosinophils (%) (Auto) 0 % (0-3) 1 % (0-3) Basophils (%) (Auto) 0 % (0-3) 0 % (0-3) Neutrophils # (Auto) 19.3 x10^3uL (1.8-7.7) 12.4 x10^3uL (1.8-7.7) Lymphocytes # (Auto) 0.5 x10^3/uL (1.0-4.8) 0.5 x10^3/uL (1.0-4.8) Monocytes # (Auto) 1.4 x10^3/uL (0.0-1.1) 1.2 x10^3/uL (0.0-1.1) Eosinophils # (Auto) 0.1 x10^3/uL (0.0-0.7) 0.1 x10^3/uL (0.0-0.7) Basophils # (Auto) 0.1 x10^3/uL (0.0-0.2) 0.1 x10^3/uL (0.0-0.2) Sodium Level 139 mmol/L (136-145) Potassium Level 3.5 mmol/L (3.5-5.1) Chloride Level 103 mmol/L (98-107) Carbon Dioxide Level 25 mmol/L (21-32) Anion Gap 11 (6-14) Blood Urea Nitrogen 15 mg/dL (8-26) Creatinine 0.8 mg/dL (0.7-1.3) Estimated GFR (Cockcroft-Gault) 95.6 Glucose Level 115 mg/dL (70-99) Calcium Level 8.3 mg/dL (8.5-10.1) Laboratory Tests Test 10/04/16 05:55 White Blood Count 14.3 x10^3/uL (4.0-11.0) Red Blood Count 3.51 x10^6/uL (4.30-5.70) Hemoglobin 9.9 g/dL (13.0-17.5) Hematocrit 30.7 % (39.0-53.0) Mean Corpuscular Volume 87 fL (79-100) Mean Corpuscular Hemoglobin 28 pg (25-35) Mean Corpuscular Hemoglobin Concent 32 g/dL (31-37) Red Cell Distribution Width 15.7 % (11.5-14.5) Platelet Count 298 x10^3/uL (140-400) Neutrophils (%) (Auto) 86 % (31-73) Lymphocytes (%) (Auto) 4 % (24-48) Monocytes (%) (Auto) 8 % (0-9) Eosinophils (%) (Auto) 1 % (0-3) Basophils (%) (Auto) 0 % (0-3) Neutrophils # (Auto) 12.4 x10^3uL (1.8-7.7) Lymphocytes # (Auto) 0.5 x10^3/uL (1.0-4.8) Monocytes # (Auto) 1.2 x10^3/uL (0.0-1.1) Eosinophils # (Auto) 0.1 x10^3/uL (0.0-0.7) Basophils # (Auto) 0.1 x10^3/uL (0.0-0.2) BERE WEBSTER MD Oct 04, 2016 13:14
[2016-10-04] MEDS: VANCOMYCIN PER PHARMACY MC PRN (13:27)
--- NOTE | 2016-10-04 14:02 | RAD ---
Indication pneumoperitoneum on plain film. Axial images through the abdomen and pelvis were obtained. Both oral and IV contrast were administered. Approximately 75 cc of Omnipaque 300 was administered intravenously. Note is made of a previous CT examinations 07/28/2016 and 07/29/2016. Known soft tissue mass in the lower esophagus near the GE junction is reproduced and appears similar to the study 07/28/2016. There are small bilateral pleural effusions. There are scattered parenchymal opacities in the right middle and lower lobes suspect for pneumonia. Some minimal volume loss at the left lung base likely reflects atelectasis. A PEG tube is noted. There is pneumoperitoneum. The etiology is not certain. This may be a function of the recently placed PEG tube. Subcutaneous emphysema is noted along the right lower abdominal wall which also is likely a function of recent PEG tube placement. There is some mild, diffuse, soft tissue swelling suggesting a systemic process such as anasarca. There is a tiny periumbilical hernia which appears uncomplicated. It contains only fat. There is a fluid collection immediately adjacent to the right heart border ventrally. This is likely benign but it does appear slightly larger than on the previous exam. Low density masses are noted in the liver compatible with cysts, similar. The spleen appears unremarkable. Left renal cysts and calculi are noted appearing similar. There are no adrenal masses. The pancreas appears unremarkable 3.7 cm abdominal aortic aneurysm is noted. No acute finding is seen in the pelvis. IMPRESSION: Pneumoperitoneum. The etiology is not certain but it could be secondary to recently placed PEG tube. Subcutaneous emphysema in the right ventricle and lower abdominal wall likely a function of the recently placed PEG tube. Small bilateral pleural effusions. Patchy infiltrates in the right middle and lower lobes suggesting pneumonia. Minimal volume loss at the left lung base likely reflects atelectasis. Fluid collection adjacent to the right heart border, probably benign but larger than on the previous exam. Small, 3.7, centimeter infrarenal abdominal aortic aneurysm Known soft tissue mass in the lower esophagus reproduced PQRS Compliance Statement: One or more of the following individualized dose reduction techniques were utilized for this examination: 1. Automated exposure control 2. Adjustment of the mA and/or kV according to patient size 3. Use of iterative reconstruction technique
[2016-10-04 15:42] VITALS: BP 145/82
[2016-10-04 19:20] VITALS: BP 137/82
[2016-10-04] MEDS: IV NORMAL SALINE 1000ML BAG 1,000 ML IV SCH ×2 (21:20→22:44)
[2016-10-04 23:20] VITALS: BP 149/88
[2016-10-05] MEDS: PIPERACILLIN/TAZOBACTAM 4.5 GM in IV NORMAL SALINE 100ML 100 ML IV SCH ×2 (00:46→05:41)
[2016-10-05 03:20] VITALS: BP 142/86
[2016-10-05] MEDS: IV NORMAL SALINE 1000ML BAG 1,000 ML IV SCH ×2 (06:44→14:44)
[2016-10-05 07:50] VITALS: BP 146/82
[2016-10-05] MEDS: ASPIRIN CHEWABLE 81 MG TABLET. PO SCH (08:00)
[2016-10-05] MEDS: LACTOBACILLUS ACIDOPH & BULGAR 1 TABLET. PO SCH ×2 (08:00→12:00)
[2016-10-05] MEDS: COLCHICINE 0.6 MG TABLET PO SCH (09:00)
[2016-10-05] MEDS: LISINOPRIL 20 MG TABLET PO SCH (09:00)
--- NOTE | 2016-10-05 10:52 | PDOC2 ---
GI CONSULT Reason For Consult: Clogged PEG HPI: HPI: 71 y/o male w/ recurrent esophageal cancer. Recently had PEG placed surgically at , apparently unable to place endoscopically due to tumor. Admitted here w / pneumonia, noted to have pneumoperitoneum and surgery is following. PEG was adjusted yesterday, apparently malfunctioning now. Also note C Diff, ID following. PMH: PMH: esophageal cancer s/p radiation and chemotherapy, HTN, GERD, PEG and port, tonsillectomy Social History: Smoke: No ALCOHOL: none Drugs: None ROS: GEN: Denies fevers, chills, sweats HEENT: Denies blurred vision, sore throat CV: Denies chest pain RESP: +cough GI: Per HPI : Denies hematuria, dysuria ENDO: +weight loss NEURO: Denies confusion, dizziness MSK: +weakness SKIN: Denies jaundice, pruritus Vitals: Vitals: Vital Signs Date Time Temp Pulse Resp B/P (MAP) Pulse Ox O2 Delivery O2 Flow Rate FiO2 10/05/16 07:50 98.4 83 16 146/82 (103) 95 Room Air 98.4 Allergies: Coded Allergies: No Known Drug Allergies (Unverified , 07/12/16) Medications: Current Medications Medications (Trade) Dose Ordered Sig/Manjit Route PRN Reason Start Time Stop Time Status Last Admin Dose Admin Sodium Chloride 1,000 ml @ 125 mls/hr Q8H IV 10/04/16 11:30 10/04/16 21:20 Iohexol (Omnipaque 240 Mg/ml) 30 ml 1X ONCE PO 10/04/16 12:15 10/04/16 12:16 DC 10/04/16 12:15 Iohexol (Omnipaque 300 Mg/ml) 75 ml 1X ONCE IV 10/04/16 12:15 10/04/16 12:16 DC 10/04/16 13:32 Imaging: Imaging: CT A/P 10/04/16 IMPRESSION: Pneumoperitoneum. The etiology is not certain but it could be secondary to recently placed PEG tube. Subcutaneous emphysema in the right ventricle and lower abdominal wall likely a function of the recently placed PEG tube. Small bilateral pleural effusions. Patchy infiltrates in the right middle and lower lobes suggesting pneumonia. Minimal volume loss at the left lung base likely reflects atelectasis. Fluid collection adjacent to the right heart border, probably benign but larger than on the previous exam. Small, 3.7, centimeter infrarenal abdominal aortic aneurysm. Known soft tissue mass in the lower esophagus reproduced. CXR 10/03/16 Impression: 1. Little change bilateral pneumonia. 2. Small bilateral effusions. 3. Pneumoperitoneum. The nurse on the floor was called and notified of the findings. PE: GEN: NAD HEENT: Atraumatic, PERRL LUNGS: decreased anteriorly HEART: RRR ABD: BS+, PEG in place w/ suture, healed incision EXTREMITY: No edema SKIN: No rashes, no jaundice NEURO/PSYCH: A & O 3 A/P: A/P: Recurrent esophageal cancer Pneumoperitoneum Recent PEG placement (surgically @ [facility] 2/2 tumor), now unable to flush C Diff Pneumonia -- Defer to surgery/IR re: PEG. Continue atbx for C Diff per ID (unable to give vanc currently through PEG). APPLE VALENCIA Oct 05, 2016 10:52
[2016-10-05 11:23] VITALS: BP 139/84
--- NOTE | 2016-10-05 11:26 | PDOC ---
SURGICAL PROGRESS NOTE Subjective Doing fine, feeling a little light headed because he has not had any nutrition in 24 hours Vital Signs Vital Signs Date Time Temp Pulse Resp B/P (MAP) Pulse Ox O2 Delivery O2 Flow Rate FiO2 10/05/16 07:50 98.4 83 16 146/82 (103) 95 Room Air 98.4 I&O Intake and Output 10/05/16 07:00 Intake Total 0 ml Balance 0 ml Intake Oral 0 ml # Voids 8 PATIENT HAS A ARREOLA: No General: Alert, Oriented X3, Cooperative, No acute distress Abdomen: Normal bowel sounds, Soft, Other (gtube in place attempted multiple flushings but could not flush, tube with white powder blocking tube) Labs Laboratory Tests Test 10/03/16 16:13 10/04/16 05:55 Clostridium difficile Toxin (PCR) Positive (Negative) White Blood Count 14.3 x10^3/uL (4.0-11.0) Red Blood Count 3.51 x10^6/uL (4.30-5.70) Hemoglobin 9.9 g/dL (13.0-17.5) Hematocrit 30.7 % (39.0-53.0) Mean Corpuscular Volume 87 fL (79-100) Mean Corpuscular Hemoglobin 28 pg (25-35) Mean Corpuscular Hemoglobin Concent 32 g/dL (31-37) Red Cell Distribution Width 15.7 % (11.5-14.5) Platelet Count 298 x10^3/uL (140-400) Neutrophils (%) (Auto) 86 % (31-73) Lymphocytes (%) (Auto) 4 % (24-48) Monocytes (%) (Auto) 8 % (0-9) Eosinophils (%) (Auto) 1 % (0-3) Basophils (%) (Auto) 0 % (0-3) Neutrophils # (Auto) 12.4 x10^3uL (1.8-7.7) Lymphocytes # (Auto) 0.5 x10^3/uL (1.0-4.8) Monocytes # (Auto) 1.2 x10^3/uL (0.0-1.1) Eosinophils # (Auto) 0.1 x10^3/uL (0.0-0.7) Basophils # (Auto) 0.1 x10^3/uL (0.0-0.2) Problem List Problems Medical Problems: (1) Sepsis Status: Acute Assessment/Plan Clogged gtube Consult IR for evaluation and treatment of g tube Problems: RYANN BRIGGS MD Oct 05, 2016 11:26
--- NOTE | 2016-10-05 11:48 | PDOC ---
PROGRESS NOTES Chief Complaint Chief Complaint 1. RUL PNA in an immunocompromised 2. Sepsis POA (tachy, WBC 20s) without target organ damage 3. Esophageal CA with indwelling PEG 4. MIld pCM 5. ARF unspecified, resolved 6. C DIFF DIarrhea (first episode) 7. CLogged pEG History of Present Illness History of Present Illness 3 issues today 1. CLogged pEG tube - probiotic even when crushed when mixed with liquid can be as hard as cement - and that clogged the tube (but dirrahe seemed better with probiotic, maybe liquid probiotic?) 2. c diff positive first episode, BM x 1 as of this AM, non septic, no abd pain , no fevers 3. SOme pericardial fluid on CT - no signs of hemodynamic compromise, no SOA, moves very well PLAN Dw Dr. More - IR consult re clogged pEG - could not declogged it at bedside Dw ID - will adjust antibiotics, on IV vanc, zosyn and levox - re c diff result (Iv flagyl is an option) Check echo to further eval that pericardial fluid OK to inc iVF for now while nPO to 100cc hr Dw RN, pt and Vitals Vitals Vital Signs Date Time Temp Pulse Resp B/P (MAP) Pulse Ox O2 Delivery O2 Flow Rate FiO2 10/05/16 08:00 Room Air 10/05/16 07:50 98.4 83 16 146/82 (103) 95 98.4 Physical Exam General: Alert, Oriented X3, Cooperative, No acute distress Lungs: Clear Abdomen: Normal bowel sounds, Soft, Other (gtube in place attempted multiple flushings but could not flush, tube with white powder blocking tube) Extremities: No clubbing, No cyanosis, No edema, Normal pulses, No tenderness/ swelling Skin: No rashes, No breakdown, No significant lesion Review of Systems Review of Systems no complaints Assessment and Plan Assessmemt and Plan Problems Medical Problems: (1) Sepsis Status: Acute Problems: Comment Review of Relevant I have reviewed the following items skyler (where applicable) has been applied. Labs Laboratory Tests Test 10/03/16 16:13 10/04/16 05:55 Clostridium difficile Toxin (PCR) Positive (Negative) White Blood Count 14.3 x10^3/uL (4.0-11.0) Red Blood Count 3.51 x10^6/uL (4.30-5.70) Hemoglobin 9.9 g/dL (13.0-17.5) Hematocrit 30.7 % (39.0-53.0) Mean Corpuscular Volume 87 fL (79-100) Mean Corpuscular Hemoglobin 28 pg (25-35) Mean Corpuscular Hemoglobin Concent 32 g/dL (31-37) Red Cell Distribution Width 15.7 % (11.5-14.5) Platelet Count 298 x10^3/uL (140-400) Neutrophils (%) (Auto) 86 % (31-73) Lymphocytes (%) (Auto) 4 % (24-48) Monocytes (%) (Auto) 8 % (0-9) Eosinophils (%) (Auto) 1 % (0-3) Basophils (%) (Auto) 0 % (0-3) Neutrophils # (Auto) 12.4 x10^3uL (1.8-7.7) Lymphocytes # (Auto) 0.5 x10^3/uL (1.0-4.8) Monocytes # (Auto) 1.2 x10^3/uL (0.0-1.1) Eosinophils # (Auto) 0.1 x10^3/uL (0.0-0.7) Basophils # (Auto) 0.1 x10^3/uL (0.0-0.2) Microbiology 10/01/16 Blood Culture - Preliminary, Resulted NO GROWTH AFTER 4 DAYS 10/01/16 Sputum Culture - Final, Complete 10/01/16 Sputum Result 1 - Final, Complete Medications Current Medications Ondansetron HCl (Zofran) 4 mg 1X ONCE IV Last administered on 10/01/16 07:52 ; Start 10/01/16 at 07:15; Stop 10/01/16 at 07:18; Status DC Sodium Chloride 1,000 ml @ 1,000 mls/hr 1X ONCE IV Last administered on 07:52; Start 10/01/16 at 07:45; Stop 10/01/16 at 08:44; Status DC Acetaminophen (Tylenol) 1,000 mg 1X ONCE PO Last administered on 10/01/16 07: 52; Start 10/01/16 at 07:45; Stop 10/01/16 at 07:46; Status DC Vancomycin HCl (Vanco Per Pharmacy) 1 each PRN DAILY PRN MC SEE COMMENTS Last administered on 10/04/16 13:27; Start 10/01/16 at 07:45 Heparin Sodium (Porcine) (Hep Lock Adult) 500 unit STK-MED ONCE IV ; Start 10/01 at 07:46; Stop 10/01/16 at 07:47; Status DC Levofloxacin/ Dextrose (Levaquin Per Pharmacy) 1 each PRN DAILY PRN MC SEE COMMENTS; Start 10/01/16 at 08:00; Stop 10/03/16 at 14:20; Status DC Levofloxacin/ Dextrose 150 ml @ 100 mls/hr 1X ONCE IV Last administered on 08:33; Start 10/01/16 at 08:00; Stop 10/01/16 at 09:29; Status DC Vancomycin HCl 1.75 gm/Sodium Chloride 500 ml @ 250 mls/hr 1X ONCE IV Last administered on 10/01/16 08:15; Start 10/01/16 at 08:15; Stop 10/01/16 at 10:14 ; Status DC Vancomycin HCl 1.75 gm/Sodium Chloride 500 ml @ 250 mls/hr 1X ONCE IV ; Start 10/01/16 at 09:00; Stop 10/01/16 at 10:59; Status Cancel Piperacillin Sod/ Tazobactam Sod (Zosyn Per Pharmacy) 1 each PRN DAILY PRN MC SEE COMMENTS; Start 10/01/16 at 08:15; Stop 10/03/16 at 14:20; Status DC Piperacillin Sod/ Tazobactam Sod 4.5 gm/Sodium Chloride 100 ml @ 200 mls/hr 1X ONCE IV Last administered on 10/01/16 13:36; Start 10/01/16 at 08:30; Stop 10/01/16 at 08:59; Status DC Ondansetron HCl (Zofran) 4 mg PRN Q8HRS PRN IV NAUSEA/VOMITING; Start 10/01/16 at 08:30; Stop 10/01/16 at 08:43; Status DC Sodium Chloride 1,000 ml @ 1,000 mls/hr 1X ONCE IV Last administered on 11:18; Start 10/01/16 at 08:30; Stop 10/01/16 at 09:29; Status DC Sodium Chloride 1,000 ml @ 80 mls/hr [id number] IV Last administered on 17:07; Start 10/01/16 at 08:30; Stop 10/03/16 at 18:25; Status DC Ondansetron HCl (Zofran) 4 mg PRN Q6HRS PRN IV NAUSEA/VOMITING; Start 10/01/16 at 08:40; Stop 10/02/16 at 08:39; Status DC Acetaminophen (Tylenol) 500 mg PRN Q6HRS PRN PO MILD PAIN / TEMP; Start at 08:45 Aspirin (Ecotrin) 81 mg DAILY PO ; Start 10/01/16 at 09:00; Stop 10/01/16 at 10: 49; Status DC Colchicine (Colcrys) 0.6 mg DAILY PO Last administered on 10/04/16 09:07; Start 10/01/16 at 09:00 Lisinopril (Prinivil) 20 mg DAILY PO Last administered on 10/04/16 09:07; Start 10/01/16 at 09:00 Non-Formulary Medication 1 each DAILY PO ; Start 10/01/16 at 09:00; Status UNV Levofloxacin/ Dextrose 150 ml @ 100 mls/hr Q24H IV Last administered on 09:04; Start 10/02/16 at 09:00 Piperacillin Sod/ Tazobactam Sod 4.5 gm/Sodium Chloride 100 ml @ 200 mls/hr Q6HRS IV Last administered on 10/05/16 05:41; Start 10/01/16 at 18:00 Aspirin (Children'S Aspirin) 81 mg DAILYWBKFT PO ; Start 10/01/16 at 10:45; Status UNV Aspirin (Children'S Aspirin) 81 mg DAILYWBKFT PO Last administered on 09:07; Start 10/01/16 at 11:00 Enoxaparin Sodium (Lovenox 40mg Syringe) 40 mg Q24H SQ ; Start 10/01/16 at 13:00 Vancomycin HCl 1 gm/Sodium Chloride 250 ml @ 250 mls/hr Q12H IV Last administered on 10/02/16 08:08; Start 10/01/16 at 20:00; Stop 10/02/16 at 20:43 ; Status DC Vancomycin HCl 1 each 1X ONCE MC Last administered on 10/02/16 19:30; Start 10/02/16 at 19:30; Stop 10/02/16 at 19:31; Status DC Loperamide HCl (Imodium) 2 mg PRN Q2HRS PRN PEG DIARRHEA Last administered on 12:31; Start 10/02/16 at 17:15 Vancomycin HCl 1.5 gm/Sodium Chloride 500 ml @ 250 mls/hr Q12H IV Last administered on 10/04/16 21:20; Start 10/02/16 at 21:00 Lactobacillus Acidophilus (Bacid, Sonam-Bid) 1 tab TIDWMEALS PO Last administered on 10/04/16 15:10; Start 10/03/16 at 17:00 Sodium Chloride 1,000 ml @ 125 mls/hr Q8H IV Last administered on 10/04/16 21 :20; Start 10/04/16 at 11:30 Iohexol (Omnipaque 240 Mg/ml) 30 ml 1X ONCE PO Last administered on 10/04/16 12:15; Start 10/04/16 at 12:15; Stop 10/04/16 at 12:16; Status DC Iohexol (Omnipaque 300 Mg/ml) 75 ml 1X ONCE IV Last administered on 10/04/16 13:32; Start 10/04/16 at 12:15; Stop 10/04/16 at 12:16; Status DC Active Scripts Active Reported Aspir 81 (Aspirin) 81 Mg Tablet.dr 1 Tab PO DAILY Colchicine 0.6 Mg Tablet 0.6 Mg PO DAILY Glucosamine & Chondroitin Cap (Glucosa Meneses 2KCL/Chondroitin Meneses) 1 Each Capsule 1 Each PO DAILY Benazepril Hcl 10 Mg Tablet 20 Mg PO DAILY Vitals/I & O Vital Sign - Last 24 Hours 10/04/16 10/04/16 10/04/16 10/04/16 15:42 19:20 20:00 23:20 Temp 97.8 98.3 97.6 97.8 98.3 97.6 Pulse 86 92 93 Resp 17 20 18 B/P (MAP) 145/82 (103) 137/82 (100) 149/88 (108) Pulse Ox 96 93 91 O2 Delivery Room Air Room Air Room Air Room Air 10/05/16 10/05/16 10/05/16 03:20 07:50 08:00 Temp 98.4 98.4 98.4 98.4 Pulse 85 83 Resp 18 16 B/P (MAP) 142/86 (104) 146/82 (103) Pulse Ox 94 95 O2 Delivery Room Air Room Air Room Air Intake and Output 10/04/16 10/04/16 10/05/16 14:59 22:59 06:59 Intake Total 0 ml 0 ml Balance 0 ml 0 ml DWIGHT RODRIGUEZ MD Oct 05, 2016 11:48
[2016-10-05] MEDS: VANCOMYCIN 1.5 GM in IV NORMAL SALINE 500ML BAG 500 ML IV SCH (11:50)
--- NOTE | 2016-10-05 12:27 | PDOC ---
Infectious Disease Note Subjective Subjective feeling good ROS ROS GEN: Denies fevers, chills, sweats HEENT: Denies blurred vision, sore throat CV: Denies chest pain RESP: Denies shortness of air, cough GI: Denies n/v/d NEURO: Denies confusion, dizziness MSK: Denies weakness, joint pain/swelling Vital Sign Vital Signs Vital Signs Date Time Temp Pulse Resp B/P (MAP) Pulse Ox O2 Delivery O2 Flow Rate FiO2 10/05/16 11:23 98.3 85 18 139/84 (102) 95 Room Air 98.3 Physical Exam PHYSICAL EXAM GENERAL: NAD, Alert HEENT: PERRL, OC/OP NECK: Supple, no JVD, no LN LUNGS: Clear HEART: S1S2, no gallop, no murmur ABD: Soft, NT, no organomegaly, no rebound EXT: No edema, no cyanosis LEGAL ARBITRATOR: Alert, oriented x 3, no focal neurologic deficit SKIN: No rash IV: ok Objective Assessment HCAP - right Leukocytosis, trending down Fever, better s/p J-tube and port placement Recurrent esophageal cancer Pneumoperitoneum on repeat chest x-ray, 10/03 Plan Plan of Care iv flagyl until through tube allowed, D/w Nursing D/w family BRIGID ELIZONDO MD Oct 05, 2016 12:27
[2016-10-05] MEDS: ENOXAPARIN 40 MG/0.4 ML SYRINGE. SQ SCH (13:00)
[2016-10-05] MEDS ORDERED: IOHEXOL 300 MG/ML 50 ML VIAL. ONE ×2 (13:46→14:57)
[2016-10-05] MEDS ORDERED: LIDOCAINE 1% / SOD BICARB 8.4% 20 ML VIAL. IJ ONE ×3 (13:46→15:15)
[2016-10-05] MEDS ORDERED: MIDAZOLAM HCL/PF 2 MG/2 ML VIAL. ONE (14:31)
[2016-10-05] MEDS ORDERED: fentaNYL PF VIAL 100 MCG/2 ML VIAL ONE (14:31)
[2016-10-05] MEDS ORDERED: fentaNYL PF VIAL 100 MCG/2 ML VIAL IV ONE (15:15)
[2016-10-05] MEDS ORDERED: MIDAZOLAM HCL/PF 2 MG/2 ML VIAL. IV ONE (15:15)
[2016-10-05] MEDS ORDERED: IOHEXOL 300 MG/ML 50 ML VIAL. IART ONE (15:15)
[2016-10-05 15:58] VITALS: BP 146/85
--- NOTE | 2016-10-05 16:49 | RAD ---
Fluoroscopically guided placement of gastrostomy tube 10/05/2016 Indication: Occluded gastrostomy tube Fluoroscopy time: 15.1 minutes Dose area product: 35 Gycm2 Discussion: The risks and benefits of the procedure including but not limited to bleeding, infection, pain, and loss of access for discussed patient. Informed consent was obtained. Patient was brought to fluoroscopy suite and placed in the supine position. A timeout procedure was performed. The preexisting gastrostomy tube was found to be completely clogged. The upper abdomen including this catheter were draped using maximal sterile barrier technique. Attempts to dislodge the distal obstruction the guidewire were unsuccessful. The retention balloon was deflated and the catheter removed. An MPA catheter and guidewire were then advanced through the preexisting tract the stomach. The stomach was mildly insufflated. An 8 mm balloon was placed through the tract, and it was dilated. Then, over the wire, an 18 Chinese gastrostomy tube was advanced in the gastric lumen. The retention balloon was inflated and retracted against the anterior gastric wall. Tube position was confirmed with the ministration of contrast. No immediate complications were identified. The procedure was performed under conscious sedation including continuous cardiopulmonary monitoring via a dedicated sedation nurse. Sedation time: 45 minutes Impression: Successful replacement of 18 Chinese percutaneous gastrostomy tube.
[2016-10-05 19:30] VITALS: BP 136/65
[2016-10-05 23:30] VITALS: BP 143/91
[2016-10-06] MEDS: IV NORMAL SALINE 1000ML BAG 1,000 ML IV SCH ×2 (02:49→06:44)
[2016-10-06 03:30] VITALS: BP 139/83
[2016-10-06 07:55] VITALS: BP 140/86
[2016-10-06] MEDS: COLCHICINE 0.6 MG TABLET PO SCH ×2 (08:56→09:00)
[2016-10-06] MEDS: LISINOPRIL 20 MG TABLET PO SCH (08:58)
[2016-10-06] MEDS: ASPIRIN CHEWABLE 81 MG TABLET. PO SCH (08:58)
[2016-10-06 11:30] VITALS: BP 111/82
--- NOTE | 2016-10-06 11:34 | PDOC ---
PROGRESS NOTES Chief Complaint Chief Complaint RUL HCAP ASSESSMENT AND PLAN: 1. PNA : sx resolved 2. Sepsis POA: resolved 3. PEJ: was clooged w/ macrobiotics. replaced on 10/05 4. Esophageal CA: recurrent; treatment on O/P basis. 5. Cdiff colitis: Flagyl IV -> PO; diarrhea much improved 6. VANESA: 2/2 diarrheal volume depletion/vasomotor. resolved 7. Mild PCM: Jevety 1.5 x6/ day 8. Dispo: home today History of Present Illness History of Present Illness much improved. diarrhea resolving. back to his usual feeding schedule per J Vitals Vitals Vital Signs Date Time Temp Pulse Resp B/P (MAP) Pulse Ox O2 Delivery O2 Flow Rate FiO2 10/06/16 08:58 79 140/86 10/06/16 08:00 Room Air 10/06/16 07:55 98.5 18 93 98.5 Physical Exam General: Alert, Oriented X3, Cooperative, No acute distress Heart: Regular rate Lungs: Clear Abdomen: Normal bowel sounds, Soft, Other (J tube replaced in VIR, funcioning well) Extremities: No edema Skin: No significant lesion TRESA DIETRICH MD Oct 06, 2016 11:34
--- NOTE | 2016-10-06 12:00 | PDOC ---
Provider Note Provider Note no abd pain, n/v. afeb vss alert, no distress abd soft nd nt g tube in place. unremarkable a/p pneumoperitoneum. thought related to his initial g tube. not clinically ill or symptomatic. clogged g tube. replaced c diff--per ID. no gen surgery needs at this time. will sign off. thank you BERE WEBSTER MD Oct 06, 2016 12:00
--- NOTE | 2016-10-06 12:12 | PDOC ---
Infectious Disease Note Subjective Subjective feeling good ROS ROS GEN: Denies fevers, chills, sweats HEENT: Denies blurred vision, sore throat CV: Denies chest pain RESP: Denies shortness of air, cough GI: Denies n/v/d NEURO: Denies confusion, dizziness MSK: Denies weakness, joint pain/swelling Vital Sign Vital Signs Vital Signs Date Time Temp Pulse Resp B/P (MAP) Pulse Ox O2 Delivery O2 Flow Rate FiO2 10/06/16 11:30 98.3 85 16 111/82 (92) 97 Room Air 98.3 Physical Exam PHYSICAL EXAM GENERAL: NAD, Alert HEENT: PERRL, OC/OP NECK: Supple, no JVD, no LN LUNGS: Clear HEART: S1S2, no gallop, no murmur ABD: Soft, NT, no organomegaly, no rebound EXT: No edema, no cyanosis WAXER: Alert, oriented x 3, no focal neurologic deficit SKIN: No rash IV: ok Objective Assessment HCAP - improved Leukocytosis, trending down Fever, better s/p J-tube and port placement Recurrent esophageal cancer Pneumoperitoneum on repeat chest x-ray, 10/03 Plan Plan of Care d/c ok, with po flagyl through tube, recurrence possibility discussed, po vanc also discussed, difficult to get liquid now f/u with me in 2-3 wks if needed D/w Nursing D/w BRIGID ELIZONDO MD Oct 06, 2016 12:12
--- NOTE | 2016-10-06 12:22 | PDOC ---
Subjective: Subjective: Feeling better. PEG functioning. Diarrhea slowing. Objective: Vital Signs: Vital Signs Date Time Temp Pulse Resp B/P (MAP) Pulse Ox O2 Delivery O2 Flow Rate FiO2 10/06/16 11:30 98.3 85 16 111/82 (92) 97 Room Air 98.3 Imaging: IR procedure 10/05/16 Impression: Successful replacement of 18 Macedonian percutaneous gastrostomy tube PE: GEN: NAD LUNGS: clear HEART: RRR ABD: soft, non-tender, PEG in place NEURO/PSYCH: A & O 3 A/P: Recurrent esophageal cancer -surgical PEG placed @ [facility], replaced by IR @ [facility], functioning -pneumoperitoneum C Diff Pneumonia -- Replacement PEG functioning. Atbx per ID through PEG. APPLE VALENCIA Oct 06, 2016 12:22
[2016-10-06] MEDS: ENOXAPARIN 40 MG/0.4 ML SYRINGE. SQ SCH (13:00)
[2016-10-06] MEDS ORDERED: METR500T8 PO (13:43)
[2016-10-06 14:27] VITALS: BP 130/71
--- NOTE | 2016-10-06 15:23 | CARD ---
APPROVED REPORT EXAM: Two-dimensional and M-mode echocardiogram with Doppler and color Doppler. Other Information HR: 82bpm INDICATION Pericardial Effusion 2D DIMENSIONS RVDd3.1 (2.9-3.5cm)Left Atrium(2D)3.7 (1.6-4.0cm) IVSd1.0 (0.7-1.1cm)Aortic Root(2D)3.4 (2.0-3.7cm) LVDd4.6 (3.9-5.9cm)LVOT Diameter2.2 (1.8-2.4cm) PWd1.1 (0.7-1.1cm)LVDs3.4 (2.5-4.0cm) FS (%) 26.2 %SV51.3 ml LVEF(%)51.4 (>50%) Aortic Valve AoV Peak Champ.150.6cm/sAoV VTI25.2cm AO Peak GR.9.1mmHgLVOT VTI 16.84cm AO Mean GR.5mmHg Mitral Valve MV E Kvfepveo86.2cm/sMV DECEL [id number] MV A Vetoodux80.0cm/sE/A Ratio0.8 TDI Lateral E' P. V9.27cm/sMedial E' P. V7.08cm/s E/Lateral E'6.7E/Medial E'8.8 Tricuspid Valve TR P. [id number] [id number] TR Peak Gr.17mmHg LEFT VENTRICLE The left ventricle is normal size. There is borderline concentric left ventricular hypertrophy. Left ventricle systolic function is normal. The Ejection Fraction is 55-60%. There is normal LV segmental wall motion. Transmitral Doppler flow pattern is abnormal. RIGHT VENTRICLE The right ventricle is normal size. There is normal right ventricular wall thickness. The right ventr icular systolic function is normal. ATRIA The left atrium size is normal. The right atrium size is normal. The interatrial septum is intact wit h no evidence for an atrial septal defect or patent foramen ovale as noted on 2-D or Doppler imaging. AORTIC VALVE The aortic valve is normal in structure and function. Doppler and Color Flow revealed trace to mild a ortic regurgitation. There is no significant aortic valvular stenosis. MITRAL VALVE The mitral valve is normal in structure and function. There is no mitral valve stenosis. Doppler and Color-flow revealed trace mitral regurgitation. TRICUSPID VALVE The tricuspid valve is normal in structure and function. Doppler and Color Flow revealed mild tricusp id regurgitation. The PA pressure was estimated at 25 mmHg. There is no tricuspid valve stenosis. PULMONIC VALVE The pulmonary valve is normal in structure and function. Doppler and Color Flow revealed no pulmonic valvular regurgitation. There is no pulmonic valvular stenosis. GREAT VESSELS The aortic root is normal in size. Normal pulmonary venous flow (Doppler). The IVC is dilated and col lapses >50% with inspiration. PERICARDIAL EFFUSION There is a trace pericardial effusion wit no hemodynamic significance. Critical Notification Critical Value: No <Conclusion> The left ventricle is normal size. Left ventricle systolic function is normal. The Ejection Fraction is 55-60%. There is borderline concentric left ventricular hypertrophy. There is no significant aortic valvular stenosis. Doppler and Color Flow revealed trace to mild aortic regurgitation. Doppler and Color-flow revealed trace mitral regurgitation. Doppler and Color Flow revealed mild tricuspid regurgitation. The PA pressure was estimated at 25 mmHg. There is a trace pericardial effusion wit no hemodynamic significance.
--- NOTE | 2016-10-06 19:23 | PDOC3 ---
Discharge Summary* Date of Admission: Oct 01, 2016 Date of Discharge: Oct 06, 2016 Admitting Diagnosis Sepsis Problems: Final Diagnosis Sepsis PNA Brief Hospital Course Mr. Gillespie is a 71 y.o male with good ADLs, lives at home with , who presented to the ER with fever and chills this AM but started not feeling well few days ago, Coughing maybe for about a week now, clear, Could not get up and drive today was so weak and almost fell. Called 911. EMS brought to [facility], CXR shows RUL PNA, WBC 20s, sinus tachy 130's, and lactate normal. Never had PNA before, denies recent travel or sick contacts. Hx of esophageal CA dx 2013 , has R lorenza cath and about to start IV chemo c/o dr Johnson next week. Has indwelling PEG, strictly NPO from esoph CA has TF boluses at home. 1. PNA : sx resolved 2. Sepsis POA: resolved 3. PEJ: was clogged w/ macrobiotics. replaced on 10/05 4. Esophageal CA: recurrent; treatment on O/P basis. 5. Cdiff colitis: Flagyl IV -> PO; diarrhea much improved 6. VANESA: 2/2 diarrheal volume depletion/vasomotor. resolved 7. Mild PCM: Jevety 1.5 x6/ day Physical Exam: VS: 140/86 79 18 93 (RA) General: Alert, Oriented X3, Cooperative, No acute distress Heart: Regular rate Lungs: Clear Abdomen: Normal bowel sounds, Soft, Other (J tube replaced in VIR, functioning well) Extremities: No edema Skin: No significant lesion Disposition/Orders: D/C to Home CONDITION AT DISCHARGE: Improved Diet: NPO Scheduled Aspirin (Aspir 81), 1 TAB PO DAILY, (Reported) Benazepril Hcl (Benazepril Hcl), 20 MG PO DAILY, (Reported) Colchicine (Colchicine), 0.6 MG PO DAILY, (Reported) Glucosa Meneses 2KCL/Chondroitin Meneses (Glucosamine & Chondroitin Cap), 1 EACH PO DAILY, (Reported) Metronidazole (Metronidazole), 1 TAB PO TID FOLLOW UP APPOINTMENT: Dr Johnson as previously arranged Time Spent Total time spent with patient [] minutes for coordination of care, counseling, and education. TRESA DIETRICH MD Oct 06, 2016 19:23
== END 2016-10-06 16:33 | disposition home or self-care (01) | DRG 871 ==
LOC: ER 07:11 → 6 SOUTH 07:30 → OBSVTOIN 16:07
PROVIDERS: ADMIT Internal Medicine; ATTEND Internal Medicine
PROC: 0DP6XUZ Removal of Feeding Device from Stomach, External Approach (ICD-10-PCS; principal; 2016-10-05)
PROC: 0DH63UZ Insertion of Feeding Device into Stomach, Percutaneous Approach (ICD-10-PCS; 2016-10-05)
DX: A41.9 Sepsis, unspecified organism (principal); J18.9 Pneumonia, unspecified organism; N17.0 Acute kidney failure with tubular necrosis; E44.1 Mild protein-calorie malnutrition; A04.7 Enterocolitis due to Clostridium difficile; K94.23 Gastrostomy malfunction; C15.9 Malignant neoplasm of esophagus, unspecified; Y83.9 Surgical procedure, unspecified as the cause of abnormal reaction of the patient, or of later complication, without mention of misadventure at the time of the procedure; K21.9 Gastro-esophageal reflux disease without esophagitis; R13.10 Dysphagia, unspecified; D89.9 Disorder involving the immune mechanism, unspecified; K66.8 Other specified disorders of peritoneum; I10 Essential (primary) hypertension; E86.9 Volume depletion, unspecified; Z90.89 Acquired absence of other organs; Z85.01 Personal history of malignant neoplasm of esophagus; Z79.82 Long term (current) use of aspirin; Z92.21 Personal history of antineoplastic chemotherapy; Z92.3 Personal history of irradiation; Z79.899 Other long term (current) drug therapy; Z79.1 Long term (current) use of non-steroidal anti-inflammatories (NSAID); Z79.2 Long term (current) use of antibiotics; Z68.20 Body mass index [BMI] 20.0-20.9, adult
CPT/HCPCS: 36415; 49450; 71010; 71020; 74177; 80048; 80076; 80202; 82553; 83605; 83690; 83735; 83880; 84443; 84484; 85007; 85027; 85610; 87040; 87045; 87070; 87205; 87324; 93005; 93306; 96365; 96375; 99152; 99153; A4215; C1769; G0378; G0379; J1956; J2250; J2405; J2543; J3010; J3370; J3490; J7030; J7040; J7050; Q9966; Q9967; 99285-25

== ENCOUNTER 2017-05-26 12:35 | Emergency (ER) | payer OTHER ==
[2017-05-26] MEDS: IV NORMAL SALINE 1000ML BAG 1,000 ML IV ×2 (13:08→15:10)
[2017-05-26] MEDS ORDERED: 0.9 % SODIUM CHLORIDE 10 ML DISP.SYRIN. IV (13:15)
[2017-05-26 13:24] LABS: ADD MAN DIFF? NO
[2017-05-26 13:27] LABS: BASO # 0.1 x10^3/uL (0.0-0.2); BASO % 1 % (0-3); EOS # 0.1 x10^3/uL (0.0-0.7); EOS % 1 % (0-3); HEMOGLOBIN 9.8 g/dL (13.0-17.5); LYMPH # 0.7 x10^3/uL (1.0-4.8); LYMPH % 6 % (24-48); MEAN CORPUSCULAR HEMOGLOBIN 27 pg (25-35); MEAN CORPUSCULAR HGB CONC 33 g/dL (31-37); MEAN CORPUSCULAR VOLUME 84 fL (79-100); MONO # 1.2 x10^3/uL (0.0-1.1); MONO % 10 % (0-9); NEUT # 9.6 x10^3uL (1.8-7.7); NEUT % 83 % (31-73); PLATELET COUNT 191 x10^3/uL (140-400); RED BLOOD COUNT 3.58 x10^6/uL (4.30-5.70); RED CELL DISTRIBUTION WIDTH 16.6 % (11.5-14.5); WHITE BLOOD COUNT 11.6 x10^3/uL (4.0-11.0)
[2017-05-26 13:41] LABS: ANION GAP 6 (6-14); BLOOD UREA NITROGEN 31 mg/dL (8-26); CALCIUM 8.5 mg/dL (8.5-10.1); CARBON DIOXIDE 27 mmol/L (21-32); CHLORIDE 106 mmol/L (98-107); CREATININE 0.8 mg/dL (0.7-1.3); GFR 95.3; GLUCOSE 191 mg/dL (70-99); POTASSIUM 4.4 mmol/L (3.5-5.1); SODIUM 139 mmol/L (136-145)
[2017-05-26 13:47] LABS: ALBUMIN 2.5 g/dL (3.4-5.0); ALK PHOS 139 U/L (46-116); ALT (SGPT) 60 U/L (16-63); AST (SGOT) 44 U/L (15-37); DIRECT BILIRUBIN 0.1 mg/dL (0.0-0.2); LIPASE 208 U/L (73-393); MAGNESIUM 1.8 mg/dL (1.8-2.4); TOTAL BILIRUBIN 0.4 mg/dL (0.2-1.0); TOTAL PROTEIN 5.9 g/dL (6.4-8.2)
[2017-05-26 13:48] LABS: TROPONINI < 0.017 ng/mL (0.000-0.055)
[2017-05-26 13:54] LABS: THYROID STIM HORMONE (TSH) 1.778 uIU/mL (0.358-3.74)
[2017-05-26 13:56] LABS: NT-PRO BNP 230 pg/mL (0-124)
[2017-05-26 13:56] LABS: CKMB MASS 0.6 ng/mL (0.0-3.6); CREATINE KINASE 26 U/L (39-308)
[2017-05-26 14:03] LABS: LACTIC ACID 2.3 mmol/L (0.4-2.0)
[2017-05-26] MEDS: IOHEXOL 300 MG/ML 100ML VIAL. IV (14:39)
[2017-05-26] MEDS: IV NORMAL SALINE 1000ML BAG 500 ML IV (14:45)
[2017-05-26] MEDS ORDERED: CONTRAST GIVEN MC (14:45)
[2017-05-26 15:25] LABS: BILIRUBIN,URINE NEGATIVE (NEG); CLARITY,URINE CLEAR; COLOR,URINE YELLOW; GLUCOSE,URINE NEGATIVE (NEG); NITRITE,URINE NEGATIVE (NEG); PROTEIN,URINE NEGATIVE (NEG-TRACE)
[2017-05-26 15:33] LABS: BACTERIA,URINE 0 /HPF (0-FEW); HYALINE CASTS, URINE FEW /HPF; RBC,URINE 0 /HPF (0-2)
== END 2017-05-26 16:24 | disposition home or self-care (01) ==
LOC: ER 12:35
DX: E86.0 Dehydration (principal); R55 Syncope and collapse; R53.1 Weakness; R42 Dizziness and giddiness; R61 Generalized hyperhidrosis; I95.9 Hypotension, unspecified; I10 Essential (primary) hypertension; Z85.01 Personal history of malignant neoplasm of esophagus; Z92.21 Personal history of antineoplastic chemotherapy; Z92.3 Personal history of irradiation; Z87.891 Personal history of nicotine dependence
CPT/HCPCS: 36415; 71045; 74177; 80048; 80076; 81001; 82553; 83605; 83690; 83735; 83880; 84443; 84484; 85025; 87040; 93005; 96360; 99285-25; J7030; Q9967

== ENCOUNTER → 2017-12-30 | Outpatient (CLI) | payer SELFPAY ==
[2017-05-26 16:19] VITALS: BP 110/64
[~2017-12-30] MED LIST changes: +ACET325T9 PEG; -BENA10TA2 PO; +BENA10TA4 PO; +LEVO500T59 PO; +METR500T8 PO; +OXYC5CAP PEG
--- NOTE | 2017-12-30 16:34 | RAD ---
Chest, 2 views, 12/30/2017: HISTORY: Cough Comparison is made to a study from 05/26/2017. A right Port-A-Cath extends to the level the atriocaval junction. A small amount of right-sided pleural fluid and a moderate volume of left-sided pleural fluid has developed with poor definition of the cardiac margins. There is calcific plaquing of the aorta. Calcified granulomata are present in the lower chest. Left basilar atelectasis is evident in conjunction with the pleural effusion. The upper lung kahn are clear. Scattered spurs are present in the spine. There are a couple small radiopaque foreign bodies projected over the gastric region of uncertain origin. IMPRESSION: Bilateral pleural effusions have developed, left greater than right, with moderate underlying left basilar atelectasis. Electronically signed by: Gonzalo Soliman MD (12/30/2017 4:31 PM) [facility]
== END | disposition home or self-care (01) ==
LOC: RAD 13:55
PROVIDERS: ATTEND Internal Medicine Hematology & Oncology
DX: J98.11 Atelectasis (principal); J90 Pleural effusion, not elsewhere classified; Z95.818 Presence of other cardiac implants and grafts
CPT/HCPCS: 71046